=== PATIENT | female | born 1985 | race Caucasian/White ===

== ENCOUNTER 2017-06-11 16:23 | Emergency (ER) | payer MEDICAID ==
[2017-06-11] MEDS ORDERED: Lidocaine 1% 20 ML MDV INJECT ONE (17:50)
--- NOTE | 2017-06-11 17:52 | EDM.PDOC ---
ED HPI GENERAL MEDICAL PROBLEM - General Chief Complaint: Laceration Stated Complaint: PT CUT MIDDLE FINGER ON LT HAND Time Seen by Provider: 06/11/17 17:51 Source of Information: Reports: Patient - History of Present Illness INITIAL COMMENTS - FREE TEXT/NARRATIVE: HISTORY AND PHYSICAL: History of present illness: []Patient was cutting glue from a dresser drawer with a razor blade she is sustained a 2 cm laceration lateral aspect of left third digit wound is bled well no fever nausea vomiting chills sweats Review of systems: As per history of present illness and below otherwise all systems reviewed and negative. Past medical history: As per history of present illness and as reviewed below otherwise noncontributory. Surgical history: As per history of present illness and as reviewed below otherwise noncontributory. Social history: No reported history of drug or alcohol abuse. Family history: As per history of present illness and as reviewed below otherwise noncontributory. Physical exam: HEENT: Atraumatic, normocephalic, pupils reactive, negative for conjunctival pallor or scleral icterus, mucous membranes moist, throat clear, neck supple, nontender, trachea midline. Lungs: Clear to auscultation, breath sounds equal bilaterally, chest nontender. Heart: S1S2, regular, negative for clicks, rubs, or JVD. Abdomen: Soft, nondistended, nontender. Negative for masses or hepatosplenomegaly. Negative for costovertebral tenderness. Pelvis: Stable nontender. Genitourinary: Deferred. Rectal: Deferred. Extremities: Atraumatic, negative for cords or calf pain. Neurovascular unremarkable. Neuro: Awake, alert, oriented. Cranial nerves II through XII unremarkable. Cerebellum unremarkable. Motor and sensory unremarkable throughout. Exam nonfocal. Diagnostics: [] Therapeutics: []Tetanus status is updated today Lidocaine Wound cleansed and explored Tube dressing bacitracin Telfa #3 5-0 Prolene sutures interrupted Impression: []Laceration 1.5 cm Definitive disposition and diagnosis as appropriate pending reevaluation and review of above. Left Middle Hand Pain Score (Numeric/FACES): 9 - Related Data Allergies Allergy/AdvReac Type Severity Reaction Status Date / Time No Known Allergies Allergy Verified 06/11/17 17:08 Home Meds: Home Meds Ranitidine [Zantac] 2 tab PO BID 07/11/14 [History] Past Medical History - Past Health History Medical/Surgical History: Denies Medical/Surgical History HEENT History: Reports: None Respiratory History: Reports: Other (See Below) Other Respiratory History: REports 15yr history smoking, current use 1/2 - 1 pack per day [employer]OM[employer] History: Reports: Musculoskeletal History: Reports: Muscular Dystrophy Other Musculoskeletal History: Pain to feet and hands at times related to Muscular Dystrophy Psychiatric History: Reports: Anxiety, Depression - Past Surgical History Other Cardiovascular Surgeries/Procedures: mytonic disturphy Other Respiratory Surgeries/Procedures: aspirated while have surgery GI Surgical History: Reports: Cholecystectomy, EGD Female Surgical History: Reports: Tubal Ligation Social & Family History - Family History Family Medical History: Noncontributory - Tobacco Use Smoking Status *Q: Current Every Day Smoker Years of Tobacco use: 15 Packs/Tins Daily: 0.5 - Caffeine Use Caffeine Use: Reports: None - Alcohol Use Days Per Week of Alcohol Use: 0 Number of Drinks Per Day: 2 Total Drinks Per Week: 0 - Recreational Drug Use Recreational Drug Use: No Drug Use in Last 12 Months: No Recreational Drug Type: Reports: Marijuana/Hashish Recreational Drug Use Frequency: Weekly ED ROS GENERAL - Review of Systems Review Of Systems: ROS reveals no pertinent complaints other than HPI. ED EXAM, SKIN/RASH Exam: See Below Course - Vital Signs Last Recorded V/S: Last Vital Signs Temp 97.6 F 06/11/17 17:06 Pulse 90 06/11/17 17:06 Resp 18 06/11/17 17:06 BP 115/64 06/11/17 17:06 Pulse Ox 98 06/11/17 17:06 - Orders/Labs/Meds Meds: Medications Discontinued Medications Generic Name Dose Route Start Last Admin Trade Name Kar PRN Reason Stop Dose Admin Lidocaine HCl 20 ml 06/11/17 17:50 Xylocaine 1% INJECT 06/11/17 17:51 ONETIME ONE Departure - Departure Time of Disposition: 18:26 Disposition: Home, Self-Care 01 Condition: Good Clinical Impression: Laceration - Discharge Information Referrals: PCP,None [Primary Care Provider] - Forms: ED Department Discharge Additional Instructions: Standard wound care instruction Keep wound clean and dry for 48 hours Bacitracin Telfa tube dressing Tetanus status is updated today Change dressing if it bleeds through or becomes soiled Sutures out in 10 days Return to emergency room or primary care for suture removal The following information is given to patients seen in the emergency department who are being discharged to home. This information is to outline your options for follow-up care. We provide all patients seen in our emergency department with a follow-up referral. The need for follow-up, as well as the timing and circumstances, are variable depending upon the specifics of your emergency department visit. If you don't have a primary care physician on staff, we will provide you with a referral. We always advise you to contact your personal physician following an emergency department visit to inform them of the circumstance of the visit and for follow-up with them and/or the need for any referrals to a consulting specialist. The emergency department will also refer you to a specialist when appropriate. This referral assures that you have the opportunity for follow-up care with a specialist. All of these measure are taken in an effort to provide you with optimal care, which includes your follow-up. Under all circumstances we always encourage you to contact your private physician who remains a resource for coordinating your care. When calling for follow-up care, please make the office aware that this follow-up is from your recent emergency room visit. If for any reason you are refused follow-up, please contact the [facility] emergency department at and asked to speak to the emergency department charge nurse.
[2017-06-11] MEDS ORDERED: Bacitracin Oint 1 GM U/D Packet TOP ONE (18:54)
[2017-06-11] MEDS ORDERED: Diphtheria,Pertussis(Acell),Tetanus Vaccine 0.5 ML Syringe IM ONE (18:54)
[2017-06-11 19:20] VITALS: BP 105/55
== END 2017-06-11 19:18 | disposition home or self-care (01) ==
LOC: MW.ED 16:23
DX: S61.213A Laceration without foreign body of left middle finger without damage to nail, initial encounter (principal); F17.210 Nicotine dependence, cigarettes, uncomplicated; Z23 Encounter for immunization; W45.8XXA Other foreign body or object entering through skin, initial encounter
CPT/HCPCS: 12001; 90471; 90715; 99282; 99282-25

== ENCOUNTER 2017-10-27 18:24 | Emergency (ER) | payer MEDICAID ==
--- NOTE | 2017-10-27 19:49 | EDM.PDOC ---
ED HPI GENERAL MEDICAL PROBLEM - General Chief Complaint: ENT Problem Stated Complaint: TOOTH INFECTION/PAIN RT SIDE OF FACE Time Seen by Provider: 10/27/17 19:30 Source of Information: Reports: Patient History Limitations: Reports: No Limitations - History of Present Illness INITIAL COMMENTS - FREE TEXT/NARRATIVE: HISTORY AND PHYSICAL: History of present illness: Patient is a 32-year-old female who presents to the emergency room today with complaints of right temporalis pain and feeling generally unwell. She thought initially that she was having dental pain and had gone to the dentist earlier today. They had done a x-ray and dental screening and told her "nothing was wrong". She has tried [id number] products and still has pain which she is localizing to her right uatsdin. She states she feels generally unwell and is requesting IV fluids. She denies any fever, chills, chest pain or shortness of breath. She denies any abdominal pain, nausea, vomiting or diarrhea or constipation. Denies any alcohol or drug abuse. Patient does have a history of muscular dystrophy Review of systems: As per history of present illness and below otherwise all systems reviewed and negative. Past medical history: As per history of present illness and as reviewed below otherwise noncontributory. Surgical history: As per history of present illness and as reviewed below otherwise noncontributory. Social history: No reported history of drug or alcohol abuse. Family history: As per history of present illness and as reviewed below otherwise noncontributory. Physical exam: General: Well-developed and well-nourished 32-year-old female. Alert and oriented. Nontoxic appearing and in no acute distress. HEENT: Atraumatic, normocephalic, pupils equal and reactive bilaterally, negative for conjunctival pallor or scleral icterus, mucous membranes moist, throat clear, neck supple, nontender, trachea midline. Mild/Moderate tenderness to the right temporalis area. No mastoid tenderness with palpation. No drooling or trismus noted. No meningeal signs. Alopecia noted (she states this is believed to be related to her muscular dystrophy) Lungs: Clear to auscultation, breath sounds equal bilaterally, chest nontender. Heart: S1S2, regular rate and rhythm without overt murmur Abdomen: Soft, nondistended, nontender. Negative for masses or hepatosplenomegaly. Negative for costovertebral tenderness. Pelvis: Stable nontender. Genitourinary: Deferred. Rectal: Deferred. Skin: Intact, warm, dry. No lesions or rashes noted. Extremities: Atraumatic, negative for cords or calf pain. Neurovascular unremarkable. Neuro: Awake, alert, oriented. Cranial nerves II through XII unremarkable. Cerebellum unremarkable. Motor and sensory unremarkable throughout. Exam nonfocal. Notes: Will obtain some routine lab work with a CBC, CMP, ESR and CRP to assess for temporal arteritis. CBC, CMP, ESR and CRP are normal. Decreases my suspicion for TA. Shared this information with the patient. She is currently in the room crying stating that the pain is severe. I will do a head CT at this time and give her some additional pain medication. Head CT is normal. Patient is currently pain-free. Temporal pain vs Tension headache.I did encourage her to follow up with her primary care provider and/or her neurologist. She is requesting pain medication for home use. We did discuss rebound headaches. Will give her 6 tablets of tramadol, no refill. She voices understanding and is agreeable to follow-up with her PCP. Diagnostics: CBC, CMP, ESR, CRP, head CT Therapeutics: IV fluids, Toradol, morphine, Zofran Impression: Temporal Pain, right Plan: 1. Rest for the remainder of the day. No driving his you have had a narcotic 2. Tylenol and/or ibuprofen as needed for pain management. You may use tramadol for nighttime use. Has drowsiness a do not take it will driving her needing to be functioning outside of the house. 3. Follow-up with your primary caregiver Missy neurologlucy for further evaluation/management. Return to the ER as needed and as discussed. Definitive disposition and diagnosis as appropriate pending reevaluation and review of above. 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: Reports: G[employer] ENG[employer]ER History: Reports: Musculoskeletal History: Reports: Muscular Dystrophy Other Musculoskeletal History: Pain to feet and hands at times related to Muscular Dystrophy Other Neuro History: myotonic muscular dystrophy Psychiatric History: Reports: Anxiety, Depression - Infectious Disease History Infectious Disease History: Reports: Chicken Pox - Past Surgical History Other Cardiovascular Surgeries/Procedures: mytonic disturphy Other Respiratory Surgeries/Procedures: aspirated while have surgery GI Surgical History: Reports: Cholecystectomy, EGD Female Surgical History: Reports: Tubal Ligation Social & Family History - Family History Family Medical History: Noncontributory - Tobacco Use Smoking Status *Q: Current Every Day Smoker Years of Tobacco use: 15 Packs/Tins Daily: 0.5 - Caffeine Use Caffeine Use: Reports: Coffee, Energy Drinks, Soda, Tea - Alcohol Use Days Per Week of Alcohol Use: 0 Number of Drinks Per Day: 2 Total Drinks Per Week: 0 - Recreational Drug Use Recreational Drug Use: Yes Drug Use in Last 12 Months: Yes Recreational Drug Type: Reports: Marijuana/Hashish, Methamphetamine Recreational Drug Use Frequency: Not Used In Over 6 Months ED ROS ENT - Review of Systems Review Of Systems: ROS reveals no pertinent complaints other than HPI. ED EXAM, ENT - Physical Exam Exam: See Below (See dictation) Course - Vital Signs Last Recorded V/S: Last Vital Signs Temp 97.8 F 10/27/17 19:13 Pulse 79 10/27/17 21:10 Resp 14 10/27/17 21:10 BP 105/55 L 10/27/17 21:10 Pulse Ox 98 10/27/17 21:10 - Orders/Labs/Meds Orders: Active Orders 24 hr Category Date Time Status Head wo Cont [CT] Stat Exams 10/27/17 20:46 Taken Labs: Laboratory Tests 10/27/17 10/27/17 10/27/17 Range/Units 19:51 19:51 19:51 WBC 9.21 (4.0-11.0) K/uL RBC 4.88 (4.30-5.90) M/uL Hgb 14.6 (12.0-16.0) g/dL Hct 44.4 (36.0-46.0) % MCV 91.0 (80.0-98.0) fL MCH 29.9 (27.0-32.0) pg MCHC 32.9 (31.0-37.0) g/dL RDW Std Deviation 44.0 (28.0-62.0) fl RDW Coeff of Anita 13 (11.0-15.0) % Plt Count 222 (150-400) K/uL MPV 10.20 (7.40-12.00) fL Neut % (Auto) 59.6 (48.0-80.0) % Lymph % (Auto) 29.9 (16.0-40.0) % [place] % (Auto) 7.2 (0.0-15.0) % Eos % (Auto) 2.8 (0.0-7.0) % Baso % (Auto) 0.5 (0.0-1.5) % Neut # (Auto) 5.5 (1.4-5.7) K/uL Lymph # (Auto) 2.8 H (0.6-2.4) K/uL [place] # (Auto) 0.7 (0.0-0.8) K/uL Eos # (Auto) 0.3 (0.0-0.7) K/uL Baso # (Auto) 0.1 (0.0-0.1) K/uL Nucleated RBC % 0.0 /100WBC Nucleated RBCs # 0 K/uL ESR 6 (0-19) mm/hr Sodium 142 (136-145) mmol/L Potassium 4.3 (3.5-5.1) mmol/L Chloride 109 H (98-107) mmol/L Carbon Dioxide 22.6 (21.0-32.0) mmol/L BUN 13 (7.0-18.0) mg/dL Creatinine 0.9 (0.6-1.0) mg/dL Est Cr Clr Drug Dosing 92.91 mL/min Estimated GFR (MDRD) > 60.0 ml/min Glucose 137 H (74-106) mg/dL Calcium 8.7 (8.5-10.1) mg/dL Total Bilirubin 0.2 (0.2-1.0) mg/dL AST 130 H (15-37) IU/L ALT 121 H (14-63) IU/L Alkaline Phosphatase 84 (46-116) U/L C-Reactive Protein <0.20 (0.00-0.90) mg/dL Total Protein 6.9 (6.4-8.2) g/dL Albumin 3.2 L (3.4-5.0) g/dL Globulin 3.7 H (2.0-3.5) g/dL Albumin/Globulin Ratio 0.9 L (1.3-2.8) Meds: Medications Discontinued Medications Generic Name Dose Route Start Last Admin Trade Name Kar PRN Reason Stop Dose Admin Sodium Chloride 500 mls @ 999 mls/hr 10/27/17 19:42 10/27/17 20:23 Normal Saline IV 10/27/17 20:12 999 mls/hr STAT ONE Administration Ketorolac Tromethamine 30 mg 10/27/17 19:42 10/27/17 20:23 Toradol IVPUSH 10/27/17 19:43 30 mg ONETIME ONE Administration Morphine Sulfate 4 mg 10/27/17 20:46 10/27/17 20:58 Morphine IVPUSH 10/27/17 20:47 4 mg ONETIME ONE Administration Ondansetron HCl 4 mg 10/27/17 20:49 10/27/17 20:58 Zofran IVPUSH 10/27/17 20:50 4 mg ONETIME ONE Administration Departure - Departure Time of Disposition: 21:40 Disposition: Home, Self-Care 01 Clinical Impression: Temporal pain - Discharge Information Instructions: Tension Headache, Adult Referrals: PCP,None [Primary Care Provider] - Forms: ED Department Discharge Additional Instructions: The following information is given to patients seen in the emergency department who are being discharged to home. This information is to outline your options for follow-up care. We provide all patients seen in our emergency department with a follow-up referral. The need for follow-up, as well as the timing and circumstances, are variable depending upon the specifics of your emergency department visit. If you don't have a primary care physician on staff, we will provide you with a referral. We always advise you to contact your personal physician following an emergency department visit to inform them of the circumstance of the visit and for follow-up with them and/or the need for any referrals to a consulting specialist. The emergency department will also refer you to a specialist when appropriate. This referral assures that you have the opportunity for follow-up care with a specialist. All of these measure are taken in an effort to provide you with optimal care, which includes your follow-up. Under all circumstances we always encourage you to contact your private physician who remains a resource for coordinating your care. When calling for follow-up care, please make the office aware that this follow-up is from your recent emergency room visit. If for any reason you are refused follow-up, please contact the [facility] Emergency Department at and asked to speak to the emergency department charge nurse. [facility] Primary Care [address] [place] [id number] [facility] Specialty Care - Neurology Professional Building [address] [place] [address], [address] [place] [address] 1. Rest for the remainder of the day. No driving his you have had a narcotic 2. Tylenol and/or ibuprofen as needed for pain management. You may use tramadol for nighttime use. Has drowsiness a do not take it will driving her needing to be functioning outside of the house. 3. Follow-up with your primary caregiver Missy neurologist for further evaluation/management. Return to the ER as needed and as discussed. - My Orders Last 24 Hours: My Active Orders 10/27/17 20:46 Head wo Cont [CT] Stat - Assessment/Plan Last 24 Hours: My Active Orders 10/27/17 20:46 Head wo Cont [CT] Stat
[2017-10-27] MEDS: Sodium Chloride 0.9% 500 ML IV ONE (20:23)
[2017-10-27] MEDS: Ketorolac 30 MG/ML SDV IVPUSH ONE (20:23)
[2017-10-27 20:24] LABS: CHLORIDE,CL 109 mmol/L (98-107); SODIUM,NA 142 mmol/L (136-145)
[2017-10-27] MEDS: Morphine 4 MG/ML Syringe IVPUSH ONE (20:58)
[2017-10-27] MEDS: Ondansetron 4 MG/2 ML SDV IVPUSH ONE (20:58)
[2017-10-27 21:29] VITALS: BP 105/55
--- NOTE | 2017-10-27 21:56 | EDM.PDOC ---
ED HPI GENERAL MEDICAL PROBLEM - General Chief Complaint: ENT Problem Stated Complaint: TOOTH INFECTION/PAIN RT SIDE OF FACE Time Seen by Provider: 10/27/17 19:30 Source of Information: Reports: Patient History Limitations: Reports: No Limitations - History of Present Illness INITIAL COMMENTS - FREE TEXT/NARRATIVE: HISTORY AND PHYSICAL: History of present illness: Patient is a 32-year-old female who presents to the emergency room today with complaints of right temporalis pain and feeling generally unwell. She thought initially that she was having dental pain and had gone to the dentist earlier today. They had done a x-ray and dental screening and told her "nothing was wrong". She has tried [id number] products and still has pain which she is localizing to her right yarsani. She states she feels generally unwell and is requesting IV fluids. She denies any fever, chills, chest pain or shortness of breath. She denies any abdominal pain, nausea, vomiting or diarrhea or constipation. Denies any alcohol or drug abuse. Patient does have a history of muscular dystrophy Review of systems: As per history of present illness and below otherwise all systems reviewed and negative. Past medical history: As per history of present illness and as reviewed below otherwise noncontributory. Surgical history: As per history of present illness and as reviewed below otherwise noncontributory. Social history: No reported history of drug or alcohol abuse. Family history: As per history of present illness and as reviewed below otherwise noncontributory. Physical exam: General: Well-developed and well-nourished 32-year-old female. Alert and oriented. Nontoxic appearing and in no acute distress. HEENT: Atraumatic, normocephalic, pupils equal and reactive bilaterally, negative for conjunctival pallor or scleral icterus, mucous membranes moist, throat clear, neck supple, nontender, trachea midline. Mild/Moderate tenderness to the right temporalis area. No mastoid tenderness with palpation. No drooling or trismus noted. No meningeal signs. Alopecia noted (she states this is believed to be related to her muscular dystrophy) Lungs: Clear to auscultation, breath sounds equal bilaterally, chest nontender. Heart: S1S2, regular rate and rhythm without overt murmur Abdomen: Soft, nondistended, nontender. Negative for masses or hepatosplenomegaly. Negative for costovertebral tenderness. Pelvis: Stable nontender. Genitourinary: Deferred. Rectal: Deferred. Skin: Intact, warm, dry. No lesions or rashes noted. Extremities: Atraumatic, negative for cords or calf pain. Neurovascular unremarkable. Neuro: Awake, alert, oriented. Cranial nerves II through XII unremarkable. Cerebellum unremarkable. Motor and sensory unremarkable throughout. Exam nonfocal. Notes: Will obtain some routine lab work with a CBC, CMP, ESR and CRP to assess for temporal arteritis. CBC, CMP, ESR and CRP are normal. Decreases my suspicion for TA. Shared this information with the patient. She is currently in the room crying stating that the pain is severe. I will do a head CT at this time and give her some additional pain medication. Head CT is normal. Patient is currently pain-free. Temporal pain vs Tension headache.I did encourage her to follow up with her primary care provider and/or her neurologist. She is requesting pain medication for home use. We did discuss rebound headaches. Will give her 6 tablets of tramadol, no refill. She voices understanding and is agreeable to follow-up with her PCP. We did discuss her elevated liver enzymes. She denies any alcohol use. I encouraged her to follow up with her PCP within the next week or two. She voices understanding and denies any further questions. Diagnostics: CBC, CMP, ESR, CRP, head CT Therapeutics: IV fluids, Toradol, morphine, Zofran Impression: Temporal Pain, right Elevated Liver Enzymes Plan: 1. Rest for the remainder of the day. No driving his you have had a narcotic 2. Tylenol and/or ibuprofen as needed for pain management. You may use tramadol for nighttime use. Has drowsiness a do not take it will driving her needing to be functioning outside of the house. 3. Follow-up with your primary caregiver Missy neurologist for further evaluation/management. Return to the ER as needed and as discussed. Definitive disposition and diagnosis as appropriate pending reevaluation and review of above. 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: Reports: GERD 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: Musculoskeletal History: Reports: Muscular Dystrophy Other Musculoskeletal History: Pain to feet and hands at times related to Muscular Dystrophy Other Neuro History: myotonic muscular dystrophy Psychiatric History: Reports: Anxiety, Depression - Infectious Disease History Infectious Disease History: Reports: Chicken Pox - Past Surgical History Other Cardiovascular Surgeries/Procedures: mytonic disturphy Other Respiratory Surgeries/Procedures: aspirated while have surgery GI Surgical History: Reports: Cholecystectomy, EGD Female Surgical History: Reports: Tubal Ligation Social & Family History - Family History Family Medical History: Noncontributory - Tobacco Use Smoking Status *Q: Current Every Day Smoker Years of Tobacco use: 15 Packs/Tins Daily: 0.5 - Caffeine Use Caffeine Use: Reports: Coffee, Energy Drinks, Soda, Tea - Alcohol Use Days Per Week of Alcohol Use: 0 Number of Drinks Per Day: 2 Total Drinks Per Week: 0 - Recreational Drug Use Recreational Drug Use: Yes Drug Use in Last 12 Months: Yes Recreational Drug Type: Reports: Marijuana/Hashish, Methamphetamine Recreational Drug Use Frequency: Not Used In Over 6 Months ED ROS GENERAL - Review of Systems Review Of Systems: ROS reveals no pertinent complaints other than HPI. ED EXAM, GENERAL - Physical Exam Exam: See Below Free Text/Narrative:: HISTORY AND PHYSICAL: History of present illness: Patient is a 32-year-old female who presents to the emergency room today with complaints of right temporalis pain and feeling generally unwell. She thought initially that she was having dental pain and had gone to the dentist earlier today. They had done a x-ray and dental screening and told her "nothing was wrong". She has tried [id number] products and still has pain which she is localizing to her right yarsani. She states she feels generally unwell and is requesting IV fluids. She denies any fever, chills, chest pain or shortness of breath. She denies any abdominal pain, nausea, vomiting or diarrhea or constipation. Denies any alcohol or drug abuse. Patient does have a history of muscular dystrophy Review of systems: As per history of present illness and below otherwise all systems reviewed and negative. Past medical history: As per history of present illness and as reviewed below otherwise noncontributory. Surgical history: As per history of present illness and as reviewed below otherwise noncontributory. Social history: No reported history of drug or alcohol abuse. Family history: As per history of present illness and as reviewed below otherwise noncontributory. Physical exam: General: Well-developed and well-nourished 32-year-old female. Alert and oriented. Nontoxic appearing and in no acute distress. HEENT: Atraumatic, normocephalic, pupils equal and reactive bilaterally, negative for conjunctival pallor or scleral icterus, mucous membranes moist, throat clear, neck supple, nontender, trachea midline. Mild/Moderate tenderness to the right temporalis area. No mastoid tenderness with palpation. No drooling or trismus noted. No meningeal signs. Alopecia noted (she states this is believed to be related to her muscular dystrophy) Lungs: Clear to auscultation, breath sounds equal bilaterally, chest nontender. Heart: S1S2, regular rate and rhythm without overt murmur Abdomen: Soft, nondistended, nontender. Negative for masses or hepatosplenomegaly. Negative for costovertebral tenderness. Pelvis: Stable nontender. Genitourinary: Deferred. Rectal: Deferred. Skin: Intact, warm, dry. No lesions or rashes noted. Extremities: Atraumatic, negative for cords or calf pain. Neurovascular unremarkable. Neuro: Awake, alert, oriented. Cranial nerves II through XII unremarkable. Cerebellum unremarkable. Motor and sensory unremarkable throughout. Exam nonfocal. Notes: Will obtain some routine lab work with a CBC, CMP, ESR and CRP to assess for temporal arteritis. CBC, CMP, ESR and CRP are normal. Decreases my suspicion for TA. Shared this information with the patient. She is currently in the room crying stating that the pain is severe. I will do a head CT at this time and give her some additional pain medication. Head CT is normal. Patient is currently pain-free. Temporal pain vs Tension headache.I did encourage her to follow up with her primary care provider and/or her neurologist. She is requesting pain medication for home use. We did discuss rebound headaches. Will give her 6 tablets of tramadol, no refill. She voices understanding and is agreeable to follow-up with her PCP. Diagnostics: CBC, CMP, ESR, CRP, head CT Therapeutics: IV fluids, Toradol, morphine, Zofran Impression: Temporal Pain, right Plan: 1. Rest for the remainder of the day. No driving his you have had a narcotic 2. Tylenol and/or ibuprofen as needed for pain management. You may use tramadol for nighttime use. Has drowsiness a do not take it will driving her needing to be functioning outside of the house. 3. Follow-up with your primary caregiver Missy neurologist for further evaluation/management. Return to the ER as needed and as discussed. Definitive disposition and diagnosis as appropriate pending reevaluation and review of above. Course - Vital Signs Last Recorded V/S: Last Vital Signs Temp 97.8 F 10/27/17 19:13 Pulse 79 10/27/17 21:10 Resp 14 10/27/17 21:10 BP 105/55 L 10/27/17 21:10 Pulse Ox 98 10/27/17 21:10 - Orders/Labs/Meds Orders: Active Orders 24 hr Category Date Time Status Head wo Cont [CT] Stat Exams 10/27/17 20:46 Taken Labs: Laboratory Tests 10/27/17 10/27/17 10/27/17 Range/Units 19:51 19:51 19:51 WBC 9.21 (4.0-11.0) K/uL RBC 4.88 (4.30-5.90) M/uL Hgb 14.6 (12.0-16.0) g/dL Hct 44.4 (36.0-46.0) % MCV 91.0 (80.0-98.0) fL MCH 29.9 (27.0-32.0) pg MCHC 32.9 (31.0-37.0) g/dL RDW Std Deviation 44.0 (28.0-62.0) fl RDW Coeff of Anita 13 (11.0-15.0) % Plt Count 222 (150-400) K/uL MPV 10.20 (7.40-12.00) fL Neut % (Auto) 59.6 (48.0-80.0) % Lymph % (Auto) 29.9 (16.0-40.0) % [place] % (Auto) 7.2 (0.0-15.0) % Eos % (Auto) 2.8 (0.0-7.0) % Baso % (Auto) 0.5 (0.0-1.5) % Neut # (Auto) 5.5 (1.4-5.7) K/uL Lymph # (Auto) 2.8 H (0.6-2.4) K/uL [place] # (Auto) 0.7 (0.0-0.8) K/uL Eos # (Auto) 0.3 (0.0-0.7) K/uL Baso # (Auto) 0.1 (0.0-0.1) K/uL Nucleated RBC % 0.0 /100WBC Nucleated RBCs # 0 K/uL ESR 6 (0-19) mm/hr Sodium 142 (136-145) mmol/L Potassium 4.3 (3.5-5.1) mmol/L Chloride 109 H (98-107) mmol/L Carbon Dioxide 22.6 (21.0-32.0) mmol/L BUN 13 (7.0-18.0) mg/dL Creatinine 0.9 (0.6-1.0) mg/dL Est Cr Clr Drug Dosing 92.91 mL/min Estimated GFR (MDRD) > 60.0 ml/min Glucose 137 H (74-106) mg/dL Calcium 8.7 (8.5-10.1) mg/dL Total Bilirubin 0.2 (0.2-1.0) mg/dL AST 130 H (15-37) IU/L ALT 121 H (14-63) IU/L Alkaline Phosphatase 84 (46-116) U/L C-Reactive Protein <0.20 (0.00-0.90) mg/dL Total Protein 6.9 (6.4-8.2) g/dL Albumin 3.2 L (3.4-5.0) g/dL Globulin 3.7 H (2.0-3.5) g/dL Albumin/Globulin Ratio 0.9 L (1.3-2.8) Meds: Medications Discontinued Medications Generic Name Dose Route Start Last Admin Trade Name Freq PRN Reason Stop Dose Admin Sodium Chloride 500 mls @ 999 mls/hr 10/27/17 19:42 10/27/17 20:23 Normal Saline IV 10/27/17 20:12 999 mls/hr STAT ONE Administration Ketorolac Tromethamine 30 mg 10/27/17 19:42 10/27/17 20:23 Toradol IVPUSH 10/27/17 19:43 30 mg ONETIME ONE Administration Morphine Sulfate 4 mg 10/27/17 20:46 10/27/17 20:58 Morphine IVPUSH 10/27/17 20:47 4 mg ONETIME ONE Administration Ondansetron HCl 4 mg 10/27/17 20:49 10/27/17 20:58 Zofran IVPUSH 10/27/17 20:50 4 mg ONETIME ONE Administration Departure - Departure Time of Disposition: 21:56 Disposition: Home, Self-Care 01 Clinical Impression: Temporal pain, Elevated liver enzymes - Discharge Information Instructions: Tension Headache, Adult Referrals: PCP,None [Primary Care Provider] - Forms: ED Department Discharge Additional Instructions: The following information is given to patients seen in the emergency department who are being discharged to home. This information is to outline your options for follow-up care. We provide all patients seen in our emergency department with a follow-up referral. The need for follow-up, as well as the timing and circumstances, are variable depending upon the specifics of your emergency department visit. If you don't have a primary care physician on staff, we will provide you with a referral. We always advise you to contact your personal physician following an emergency department visit to inform them of the circumstance of the visit and for follow-up with them and/or the need for any referrals to a consulting specialist. The emergency department will also refer you to a specialist when appropriate. This referral assures that you have the opportunity for follow-up care with a specialist. All of these measure are taken in an effort to provide you with optimal care, which includes your follow-up. Under all circumstances we always encourage you to contact your private physician who remains a resource for coordinating your care. When calling for follow-up care, please make the office aware that this follow-up is from your recent emergency room visit. If for any reason you are refused follow-up, please contact the [facility] Emergency Department at and asked to speak to the emergency department charge nurse. [facility] [address] [place] [id number] [facility] Specialty Care - Neurology Professional Building [address] [place] [address], [address] [place] [address] 1. Rest for the remainder of the day. No driving his you have had a narcotic 2. Tylenol and/or ibuprofen as needed for pain management. You may use tramadol for nighttime use. Has drowsiness a do not take it will driving her needing to be functioning outside of the house. 3. Follow-up with your primary caregiver Missy neurologist for further evaluation/management. Return to the ER as needed and as discussed. - My Orders Last 24 Hours: My Active Orders 10/27/17 20:46 Head wo Cont [CT] Stat - Assessment/Plan Last 24 Hours: My Active Orders 10/27/17 20:46 Head wo Cont [CT] Stat
--- NOTE | 2017-10-28 10:07 | CT ---
EXAM DATE: 10/27/17 PATIENT'S AGE: 32 Patient: DEEP HARMON Facility: [place], [place] Site . Site : 1985 Study: CT Head [id number] 9:12:54 PM Ordering Physician: Doctor Fitzgerald Final Report: CT HEAD DATE: 10/27/2017 CLINICAL HISTORY: Patient with right temporal pain. TECHNIQUE: Standard CT scanning of the head was performed. COMPARISON: None. FINDINGS: There is no intracranial hemorrhage. The donovan matter-white matter differentiation is intact. The size of the ventricular system is normal for age. There is no mass effect or midline shift. The calvarium is unremarkable. The orbits are unremarkable. The paranasal sinuses are unremarkable. The mastoid air cells are unremarkable. The soft tissues are unremarkable. IMPRESSION: Normal head CT. Please note that all CT scans at this facility use dose modulation, iterative reconstruction, and/or weight-based dosing when appropriate to reduce radiation dose to as low as reasonably achievable. Dictated by: Alejo Clement MD @ 10/27/2017 21:18:27 (Electronic Signature) Report Signed by Proxy. [facility]ITAL[facility]
== END 2017-10-27 21:40 | disposition home or self-care (01) ==
LOC: MW.ED 18:24
DX: R51 Headache (principal); R94.5 Abnormal results of liver function studies; F17.210 Nicotine dependence, cigarettes, uncomplicated
CPT/HCPCS: 36415; 70450; 80053; 85025; 85652; 86140; 96374; 96375; 99284; J1885; J2270; J2405; J7040; 99283

== ENCOUNTER 2018-04-05 07:33 | Emergency (ER) | payer MEDICAID ==
[2018-04-05 07:51] VITALS: BP 136/80
--- NOTE | 2018-04-05 08:06 | EDM.PDOC ---
ED HPI GENERAL MEDICAL PROBLEM - General Chief Complaint: Skin Complaint Stated Complaint: SPIDER BITES Time Seen by Provider: 04/05/18 08:04 Source of Information: Reports: Patient - History of Present Illness INITIAL COMMENTS - FREE TEXT/NARRATIVE: HISTORY AND PHYSICAL: History of present illness: []Marisela presents with a complaint of spider bite She does have 2 areas of small cellulitis silver dollar-sized lesions on her right forearm as well as her right hip their red raised and tender mild warmth no induration or exudates for culture No fever nausea vomiting chills sweats Review of systems: As per history of present illness and below otherwise all systems reviewed and negative. Past medical history: As per history of present illness and as reviewed below otherwise noncontributory. Surgical history: As per history of present illness and as reviewed below otherwise noncontributory. Social history: No reported history of drug or alcohol abuse. Family history: As per history of present illness and as reviewed below otherwise noncontributory. Physical exam: HEENT: Atraumatic, normocephalic, pupils reactive, negative for conjunctival pallor or scleral icterus, mucous membranes moist, throat clear, neck supple, nontender, trachea midline. Lungs: Clear to auscultation, breath sounds equal bilaterally, chest nontender. Heart: S1S2, regular, negative for clicks, rubs, or JVD. Abdomen: Soft, nondistended, nontender. Negative for masses or hepatosplenomegaly. Negative for costovertebral tenderness. Pelvis: Stable nontender. Genitourinary: Deferred. Rectal: Deferred. Extremities: Atraumatic, negative for cords or calf pain. Neurovascular unremarkable. Neuro: Awake, alert, oriented. Cranial nerves II through XII unremarkable. Cerebellum unremarkable. Motor and sensory unremarkable throughout. Exam nonfocal. Skin as per history of present illness otherwise unremarkable Diagnostics: [] clinical Therapeutics: [] Bactrim single strength #20 no refill Bactroban Impression: [] cellulitis Definitive disposition and diagnosis as appropriate pending reevaluation and review of above. 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: Musculoskeletal History: Reports: Muscular Dystrophy Other Musculoskeletal History: Pain to feet and hands at times related to Muscular Dystrophy Other Neuro History: myotonic muscular dystrophy Psychiatric History: Reports: Anxiety, Depression - Infectious Disease History Infectious Disease History: Reports: Chicken Pox - Past Surgical History Other Cardiovascular Surgeries/Procedures: mytonic disturphy Other Respiratory Surgeries/Procedures: aspirated while have surgery GI Surgical History: Reports: Cholecystectomy, EGD Female Surgical History: Reports: Tubal Ligation Social & Family History - Family History Family Medical History: Noncontributory - Tobacco Use Smoking Status *Q: Current Every Day Smoker Years of Tobacco use: 15 Packs/Tins Daily: 0.5 Used Tobacco, but Quit: No Second Hand Smoke Exposure: Yes - Caffeine Use Caffeine Use: Reports: Coffee, Energy Drinks, Soda, Tea - Recreational Drug Use Recreational Drug Use: Yes Recreational Drug Type: Reports: Marijuana/Hashish Recreational Drug Use Frequency: Daily ED ROS GENERAL - Review of Systems Review Of Systems: See Below ED EXAM, SKIN/RASH Exam: See Below Course - Vital Signs Last Recorded V/S: Last Vital Signs Temp 98.6 F 04/05/18 07:43 Pulse 82 04/05/18 07:43 Resp 18 04/05/18 07:43 BP 136/80 04/05/18 07:43 Pulse Ox 97 04/05/18 07:43 Departure - Departure Time of Disposition: 08:05 Disposition: Home, Self-Care 01 Condition: Good Clinical Impression: Cellulitis - Discharge Information Referrals: PCP,None [Primary Care Provider] - Additional Instructions: The following information is given to patients seen in the emergency department who are being discharged to home. This information is to outline your options for follow-up care. We provide all patients seen in our emergency department with a follow-up referral. The need for follow-up, as well as the timing and circumstances, are variable depending upon the specifics of your emergency department visit. If you don't have a primary care physician on staff, we will provide you with a referral. We always advise you to contact your personal physician following an emergency department visit to inform them of the circumstance of the visit and for follow-up with them and/or the need for any referrals to a consulting specialist. The emergency department will also refer you to a specialist when appropriate. This referral assures that you have the opportunity for follow-up care with a specialist. All of these measure are taken in an effort to provide you with optimal care, which includes your follow-up. Under all circumstances we always encourage you to contact your private physician who remains a resource for coordinating your care. When calling for follow-up care, please make the office aware that this follow-up is from your recent emergency room visit. If for any reason you are refused follow-up, please contact the [facility] emergency department at and asked to speak to the emergency department charge nurse.
== END 2018-04-05 08:10 | disposition home or self-care (01) ==
LOC: MW.ED 07:33
DX: L03.113 Cellulitis of right upper limb (principal); L03.115 Cellulitis of right lower limb; F17.210 Nicotine dependence, cigarettes, uncomplicated
CPT/HCPCS: 99282

== ENCOUNTER 2020-01-22 00:39 | Emergency (ER) | payer MEDICAID ==
[2020-01-22] MEDS ORDERED: Ibuprofen 400 MG Tab PO ONE (01:14)
[2020-01-22] MEDS ORDERED: Acetaminophen 500 MG Tab PO ONE (01:14)
--- NOTE | 2020-01-22 01:19 | EDM.PDOC ---
ED HPI GENERAL MEDICAL PROBLEM - General Chief Complaint: Lower Extremity Injury/Pain Stated Complaint: LEFT FOOT SWOLLEN, TINGLING Time Seen by Provider: 01/22/20 00:41 Source of Information: Reports: Patient, Old Records History Limitations: Reports: No Limitations - History of Present Illness INITIAL COMMENTS - FREE TEXT/NARRATIVE: 34-year-old female the past medical history of muscular dystrophy, hyperlipidemia, biliary dyskinesia, gastroenteritis presenting with lower extremity pain and swelling. She reports that yesterday she accidentally scraped the lateral side of her left lower leg when she fell accidentally. This morning around 8:00 in the morning she noticed swelling extending from the left knee down to the left foot and complains of pain into the left foot. No prior history of a DVT. Denies any fever, chills, chest discomfort, shortness of breath, redness, or streaking. Bilateral Leg Pain Score (Numeric/FACES): 7 - Related Data Allergies Allergy/AdvReac Type Severity Reaction Status Date / Time adhesive Allergy "skin Verified 01/22/20 00:52 comes off" Home Meds: Home Meds Famotidine [Acid Commutator Inspector] 10 mg PO ASDIRECTED 01/22/20 [History] Gabapentin [Neurontin] 300 mg PO BID 01/22/20 [History] Past Medical History - Past Health History Medical/Surgical History: Denies Medical/Surgical History HEENT History: Reports: Impaired Vision Cardiovascular History: Reports: Heart Murmur, High Cholesterol Respiratory History: Reports: Asthma Other Respiratory History: "mild asthma", not on any prescribed inhalers Gastrointestinal History: Reports: GERD Genitourinary History: Reports: UTI, Recurrent SUPPORT WORKER History: Reports: Musculoskeletal History: Reports: Other (See Below) Other Musculoskeletal History: mytonic muscular dystrophy Neurological History: Reports: None Other Neuro History: myotonic muscular dystrophy Psychiatric History: Reports: Anxiety, Depression Endocrine/Metabolic History: Reports: Obesity/BMI 30+ Hematologic History: Reports: None Immunologic History: Reports: None Oncologic (Cancer) History: Reports: None Dermatologic History: Reports: None - Infectious Disease History Infectious Disease History: Reports: Chicken Pox - Past Surgical History Head Surgeries/Procedures: Reports: None HEENT Surgical History: Reports: Cataract Surgery Cardiovascular Surgical History: Reports: None Respiratory Surgical History: Reports: None GI Surgical History: Reports: Cholecystectomy, EGD, Other (See Below) Female Surgical History: Reports: Tubal Ligation Endocrine Surgical History: Reports: None Neurological Surgical History: Reports: None Musculoskeletal Surgical History: Reports: None Oncologic Surgical History: Reports: None Dermatological Surgical History: Reports: None Social & Family History - Family History Family Medical History: Noncontributory - Tobacco Use Smoking Status *Q: Current Every Day Smoker Years of Tobacco use: 17 Packs/Tins Daily: 0.5 - Caffeine Use Caffeine Use: Reports: Coffee, Energy Drinks, Soda, Tea - Recreational Drug Use Recreational Drug Use: Yes Drug Use in Last 12 Months: Yes Recreational Drug Type: Reports: Marijuana/Hashish, Methamphetamine Other Recreational Drug Type: meth not used in 2 weeks Recreational Drug Use Frequency: Monthly Review of Systems - Review of Systems Review Of Systems: See Below Constitutional: Denies: Chills, Fever Ears: Reports: No Symptoms Nose: Reports: No Symptoms Mouth/Throat: Reports: No Symptoms Respiratory: Denies: Shortness of Breath Cardiovascular: Reports: Edema. Denies: Chest Pain GI/Abdominal: Denies: Abdominal Pain, Nausea, Vomiting Genitourinary: Reports: No Symptoms Musculoskeletal: Reports: Leg Pain, Foot Pain Skin: Reports: Wound Neurological: Reports: No Symptoms Psychiatric: Reports: No Symptoms ED EXAM, GENERAL - Physical Exam Exam: See Below Free Text/Narrative:: Vital signs reviewed. Nursing notes reviewed. Constitutional: Awake, alert, non-distressed. Head: Normocephalic, atraumatic. Eyes: EOMI, conjunctiva normal, no discharge, no scleral icterus. Ears, Nose, Throat: External ears and nose normal, moist oral mucosa. Cardiovascular: 2+ left radial and DP pulse, capillary refill less than 2 seconds. 1+ edema from the left knee extending down into the left foot Pulmonary: normal work of breathing, no accessory muscle use. CTA BL Abdomen/GI: Morbidly obese, soft nontender, nondistended, no guarding or rigidity, no masses. Musculoskeletal: No deformities. Mild tenderness to palpation of the left ankle and dorsum of the left foot Integumentary: Appropriate color for ethnicity, warm, dry, no pallor or jaundice, no rash. Abrasions noted to the lateral aspect of the left lower leg Neurologic: Alert, answering questions appropriately, normal speech, no facial droop, moving all extremities well. Psychiatric: Appropriate mood and affect, normal thought process. Course - Vital Signs Text/Narrative:: Patient hemodynamically stable, afebrile, well-appearing, looks nontoxic. Differential diagnosis includes but is not limited to: DVT, cellulitis, occult trauma, fracture, dislocation, hepatic failure, renal failure, congestive heart failure, compartment syndrome, etc. DVT ultrasound study is negative, d-dimer is negative. No clinical evidence of cellulitis. X-rays of the left lower extremity are negative for bony injury. Creatinine is normal, albumin is normal which argues against hepatic or renal f ailure. CK is modestly elevated at 710 which does not classically meet the criteria for rhabdomyolysis. Urinalysis shows trace leukocyte esterase but no proteinuria. Patient was treated with acetaminophen and oxycodone with good relief of her pain. On examination, she complains of diminished sensation to the medial and lateral aspects of the left lower leg, the dorsum of the left foot, the medial and lateral sides the left foot. The only area of the lower extremity that she states has normal sensation is the plantar surface of the left foot. I did entertain the idea of compartment syndrome and involved the orthopedic surgery service by phone. 03:30 AM: I spoke with Dr. David Galindo with orthopedics. I did discuss potential concern for compartment syndrome despite a relatively minor mechanism of injury. I have voiced my concern about ongoing pain and subjective numbness with swelling distal to the left knee extending to the left foot. I also explained that we are unable to check compartment pressures because our Smiley compartment measuring device is missing some of the parts. After discussing the case, he is not particularly concerned about compartment syndrome. He voiced potential concern about a vascular injury. We are going to obtain a CT angiogram of the left lower extremity to look for a small-vessel vascular injury, although at this point I am reassured by the fact that the pulses in the left foot are normal and the legs are iso-thermic and appear to be warm and well- perfused. At this point the patient is complaining of numbness to the medial aspect the left lower leg and the entirety of the left foot. Anatomically this would not make much sense for compartment syndrome given that multiple nerves innervating the left foot would have to be involved, traversing multiple compartments. Additionally, the exterior compartments are soft - the only compartment I cannot readily examine is the deep posterior compartment. There is no pain with passive stretch of the left ankle or toes. There is no poikilothermia or paralysis noted and all extremity pulses in the left foot are currently palpable or dopplerable 4:50 AM: Patient returned from CT angiogram study of the left lower extremity, we are awaiting radiology read. I am able to easily Doppler the left DP and PT pulses. Lower extremities are iso-thermic. There is no pain with passive stretch of the left ankle or flexion or extension of the toes of the left foot. Compartments of the left leg remain soft. Upon further history, the patient is taking gabapentin for what I presume is lower extremity peripheral neuropathy and she is under the care of a neurologist. Her left lower extremity swelling started around 21 hours ago and the patient does not think it has markedly worsened over the past several hours. She shows no evidence of vascular compromise and I think my suspicion for compartment syndrome is quite low at this point given normal temperature, normal pulses, and no pain with passive stretch of the toes or the ankle on the left side. 6:04 AM: Preliminary exam by Dr. Neal Alamo ([facility] radiologist) shows no sign of vascular injury in the CTA, moderate superficial edema of the lower leg and the foot, no sign of deeper soft tissue edema or hematoma. Pain improved. Swelling actually looks like it is gone down quite a bit while she is here in the ED, which would also argue against compartment syndrome. Possible that she has a sprained ankle and some superficial soft tissue swelling. Plan to discharge home with outpatient primary care follow-up. Recommended elevation of the leg, [id number] Tylenol/Motrin as needed for pain. Strict emergency department return precautions were provided, patient indicated understanding. All questions were answered prior to departure. Discharged in good condition. Last Recorded V/S: Last Vital Signs Temp 35.4 C L 01/22/20 00:49 Pulse 95 01/22/20 05:23 Resp 16 01/22/20 05:23 BP 108/62 01/22/20 05:23 Pulse Ox 93 L 01/22/20 05:23 - Orders/Labs/Meds Labs: Laboratory Tests 01/22/20 01/22/20 01/22/20 Range/Units 01:38 01:38 01:38 WBC 9.36 (4.0-11.0) K/uL RBC 4.49 (4.30-5.90) M/uL Hgb 13.2 (12.0-16.0) g/dL Hct 41.6 (36.0-46.0) % MCV 92.7 (80.0-98.0) fL MCH 29.4 (27.0-32.0) pg MCHC 31.7 (31.0-37.0) g/dL RDW Std Deviation 46.3 (28.0-62.0) fl RDW Coeff of Anita 14 (11.0-15.0) % Plt Count 210 (150-400) K/uL MPV 10.00 (7.40-12.00) fL Neut % (Auto) 68.4 (48.0-80.0) % Lymph % (Auto) 22.3 (16.0-40.0) % [place] % (Auto) 6.9 (0.0-15.0) % Eos % (Auto) 2.0 (0.0-7.0) % Baso % (Auto) 0.4 (0.0-1.5) % Neut # (Auto) 6.4 H (1.4-5.7) K/uL Lymph # (Auto) 2.1 (0.6-2.4) K/uL [place] # (Auto) 0.7 (0.0-0.8) K/uL Eos # (Auto) 0.2 (0.0-0.7) K/uL Baso # (Auto) 0.0 (0.0-0.1) K/uL D-Dimer, Quantitative 0.33 (0.0-0.50) mg/L FEU Sodium 144 (136-145) mmol/L Potassium 3.6 (3.5-5.1) mmol/L Chloride 106 (98-107) mmol/L Carbon Dioxide 29.8 (21.0-32.0) mmol/L BUN 15 (7.0-18.0) mg/dL Creatinine 0.9 (0.6-1.0) mg/dL Est Cr Clr Drug Dosing 91.18 mL/min Estimated GFR (MDRD) > 60.0 ml/min Glucose 99 (74-106) mg/dL Calcium 9.1 (8.5-10.1) mg/dL Total Bilirubin 0.2 (0.2-1.0) mg/dL AST 50 H (15-37) IU/L ALT 62 (14-63) IU/L Alkaline Phosphatase 81 (46-116) U/L Creatine Kinase (26-308) U/L Total Protein 7.2 (6.4-8.2) g/dL Albumin 3.5 (3.4-5.0) g/dL Globulin 3.7 (2.6-4.0) g/dL Albumin/Globulin Ratio 0.9 (0.9-1.6) Urine Color Urine Appearance Urine pH (5.0-8.0) Ur Specific [place] (1.001-1.035) Urine Protein (NEGATIVE) mg/dL Urine Glucose (UA) (NEGATIVE) mg/dL Urine Ketones (NEGATIVE) mg/dL Urine Occult Blood (NEGATIVE) Urine Nitrite (NEGATIVE) Urine Bilirubin (NEGATIVE) Urine Urobilinogen (<2.0) EU/dL Ur Leukocyte Esterase (NEGATIVE) Urine RBC (0-2/HPF) Urine WBC (0-5/HPF) Ur Epithelial Cells (NONE-FEW) Urine Bacteria (NEGATIVE) Urine Mucus (NONE-MOD) 01/22/20 01/22/20 Range/Units 01:38 03:10 WBC (4.0-11.0) K/uL RBC (4.30-5.90) M/uL Hgb (12.0-16.0) g/dL Hct (36.0-46.0) % MCV (80.0-98.0) fL MCH (27.0-32.0) pg MCHC (31.0-37.0) g/dL RDW Std Deviation (28.0-62.0) fl RDW Coeff of Anita (11.0-15.0) % Plt Count (150-400) K/uL MPV (7.40-12.00) fL Neut % (Auto) (48.0-80.0) % Lymph % (Auto) (16.0-40.0) % [place] % (Auto) (0.0-15.0) % Eos % (Auto) (0.0-7.0) % Baso % (Auto) (0.0-1.5) % Neut # (Auto) (1.4-5.7) K/uL Lymph # (Auto) (0.6-2.4) K/uL [place] # (Auto) (0.0-0.8) K/uL Eos # (Auto) (0.0-0.7) K/uL Baso # (Auto) (0.0-0.1) K/uL D-Dimer, Quantitative (0.0-0.50) mg/L FEU Sodium (136-145) mmol/L Potassium (3.5-5.1) mmol/L Chloride (98-107) mmol/L Carbon Dioxide (21.0-32.0) mmol/L BUN (7.0-18.0) mg/dL Creatinine (0.6-1.0) mg/dL Est Cr Clr Drug Dosing mL/min Estimated GFR (MDRD) ml/min Glucose (74-106) mg/dL Calcium (8.5-10.1) mg/dL Total Bilirubin (0.2-1.0) mg/dL AST (15-37) IU/L ALT (14-63) IU/L Alkaline Phosphatase (46-116) U/L Creatine Kinase 710 H (26-308) U/L Total Protein (6.4-8.2) g/dL Albumin (3.4-5.0) g/dL Globulin (2.6-4.0) g/dL Albumin/Globulin Ratio (0.9-1.6) Urine Color YELLOW Urine Appearance SLT CLOUDY Urine pH 6.0 (5.0-8.0) Ur Specific [place] >= 1.030 (1.001-1.035) Urine Protein NEGATIVE (NEGATIVE) mg/dL Urine Glucose (UA) NEGATIVE (NEGATIVE) mg/dL Urine Ketones NEGATIVE (NEGATIVE) mg/dL Urine Occult Blood NEGATIVE (NEGATIVE) Urine Nitrite NEGATIVE (NEGATIVE) Urine Bilirubin NEGATIVE (NEGATIVE) Urine Urobilinogen 0.2 (<2.0) EU/dL Ur Leukocyte Esterase TRACE H (NEGATIVE) Urine RBC 0-2 (0-2/HPF) Urine WBC 3-5 (0-5/HPF) Ur Epithelial Cells MANY (NONE-FEW) Urine Bacteria FEW (NEGATIVE) Urine Mucus LIGHT (NONE-MOD) Meds: Medications Discontinued Medications Generic Name Dose Route Start Last Admin Trade Name Freq PRN Reason Stop Dose Admin Acetaminophen 1,000 mg 01/22/20 01:14 07/06/20 01:35 Tylenol Extra Strength PO 07/06/20 01:15 1,000 mg ONETIME ONE Administration Ibuprofen 400 mg 01/22/20 01:14 01/22/20 01:34 Motrin PO 01/22/20 01:15 Not Given ONETIME ONE Iopamidol 100 ml 01/22/20 04:20 01/22/20 04:20 Isovue-370 (76%) IVPUSH 01/22/20 04:21 100 ml ONETIME ONE Administration Oxycodone HCl 10 mg 01/22/20 02:45 01/22/20 03:09 Oxycodone PO 01/22/20 02:46 10 mg ONETIME ONE Administration Departure - Departure Time of Disposition: 04:58 Disposition: Home, Self-Care 01 Condition: Good Clinical Impression: Abrasion, left lower leg, initial encounter, Swelling of left lower extremity - Discharge Information *PRESCRIPTION DRUG MONITORING PROGRAM REVIEWED*: Not Applicable *COPY OF PRESCRIPTION DRUG MONITORING REPORT IN PATIENT AGUSTIN: Not Applicable Referrals: Candice Mehta PA [Primary Care Provider] - 3 Days (For reevaluation of left leg and foot swelling.) Forms: ED Department Discharge Additional Instructions: Thank you for choosing the [facility] emergency department in [place] for your medical needs today. It was a pleasure caring for you. You were seen in the emergency department for pain and swelling of your left leg and foot. At this point, your blood work, x-rays, ultrasound, and CT scan look reassuring. We do not see evidence of a blood clot or broken bones in the left leg or foot. There is also no evidence of infection from what I can tell. It is possible that you sprained your left ankle and that some of the swelling is due to soft tissue injury. I would recommend elevating your left leg while you are at home by propping it up on a pillow. You can also try compression stockings as these may help reduce the amount of swelling. You can take [id number] acetaminophen or ibuprofen as directed on the package for pain. You can also apply ice packs, for 10 minutes every hour if you find this helpful. At this point we do not see evidence of a serious cause of your pain and swelling. The numbness may be due to peripheral neuropathy as it seems you are taking gabapentin which is typically prescribed for nerve related numbness or pain. This may be a factor that could cause you to be experiencing some of the numb feeling in your left leg/foot. I would like for you to follow-up with your primary medical clinic in the next 2 to 3 days for reevaluation. If your pain worsens or if you notice that your left leg has become pale or bluish colored, you should come back to the emergency department immediately and not wait to be seen in the clinic. Please return the emergency department immediately if your symptoms worsen or if you feel worse. The following information is given to patients seen in the emergency department who are being discharged. This information is to outline your options for follow-up care. We provide all patients seen in our emergency department with a follow-up referral. The need for follow-up, as well as the timing and circumstances, are variable depending upon the specifics of your emergency department visit. If you don't have a primary care physician on staff, we will provide you with a referral. We always advise you to contact your personal physician following an emergency department visit to inform them of the circumstance of the visit and for follow-up with them and/or the need for any referrals to a consulting specialist. The emergency department will also refer you to a specialist when appropriate. This referral assures that you have the opportunity for follow-up care with a specialist. All of these measure are taken in an effort to provide you with optimal care, which includes your follow-up. Under all circumstances we always encourage you to contact your private physician who remains a resource for coordinating your care. When calling for follow-up care, please make the office aware that this follow-up is from your recent emergency room visit. If for any reason you are refused follow-up, please contact the [facility] Emergency Department at and asked to speak to the emergency department charge nurse. If you do not have a primary care physician that is caring for you, you can contact these clinics below to set up an appointment to establish care: [facility] - Primary Care [address] [place] [id number] [facility] [address] [place] [address] Sepsis Event Note (ED) - Evaluation Sepsis Screening Result: No Definite Risk - Focused Exam Vital Signs: Vital Signs Temp Pulse Resp BP Pulse Ox 01/22/20 05:23 95 16 108/62 93 L 01/22/20 05:01 89 17 115/71 93 L 01/22/20 02:34 94 17 118/71 99 01/22/20 00:49 35.4 C L 113 H 16 121/87 95
[2020-01-22 01:58] LABS: BLOOD UREA NITROGEN,BUN 15 mg/dL (7.0-18.0); CARBON DIOXIDE,CO2 29.8 mmol/L (21.0-32.0); CHLORIDE,CL 106 mmol/L (98-107); GLUCOSE RANDOM 99 mg/dL (74-106); POTASSIUM,K 3.6 mmol/L (3.5-5.1); SODIUM,NA 144 mmol/L (136-145)
--- NOTE | 2020-01-22 02:41 | US ---
INDICATION: Left lower leg swelling and pain TECHNIQUE: Ultrasound venous duplex left lower extremity. Nelson-scale, color Doppler, and spectral Doppler imaging were performed with compression and augmentation. COMPARISON: None FINDINGS: Deep veins: The left common femoral, femoral, popliteal, and visualized calf veins are fully compressible, demonstrate normal color flow, and normal response to mechanical augmentation. The Duplex Doppler waveforms are normal in appearance. Superficial veins: The visualized greater saphenous and superficial veins of the leg and calf are unremarkable. Soft tissue: No masses or cysts are identified. No adenopathy is seen. IMPRESSION: 1. No sonographic evidence of acute deep venous thrombosis seen. Dictated by: Jesus Harman MD @ 01/22/2020 02:39:55 (Electronically Signed)
[2020-01-22] MEDS ORDERED: oxyCODONE 5 MG Tab PO ONE (02:45)
--- NOTE | 2020-01-22 03:26 | CR ---
INDICATION: Fall, tibia swelling TECHNIQUE: Tibia-fibula radiograph 2 views left COMPARISON: None FINDINGS: Bone: No acute fractures or aggressive bone lesions are identified. Joint: The visualized knee and ankle joints are unremarkable. No significant joint effusion is seen. Soft tissue: Unremarkable. No radiopaque foreign bodies are seen. IMPRESSION: 1. No acute osseous injuries or abnormalities are noted. Dictated by: Jesus Harman MD @ 01/22/2020 03:24:25 (Electronically Signed)
--- NOTE | 2020-01-22 03:26 | CR ---
INDICATION: Fall, marked foot swelling to dorsum TECHNIQUE: Foot radiograph 3 views left COMPARISON: None FINDINGS: Bone: No acute fractures or aggressive bone lesions are identified. Joint: The visualized hindfoot, midfoot, and forefoot joints are unremarkable in appearance. No significant ankle effusion is seen. Soft tissue: Unremarkable. No radiopaque foreign bodies are seen. IMPRESSION: 1. No acute osseous injuries or abnormalities are noted. Dictated by: Jesus Harman MD @ 01/22/2020 03:23:53 (Electronically Signed)
[2020-01-22] MEDS ORDERED: Iopamidol 755 Mg/ML 100 ML Bottle IVPUSH ONE (04:20)
[2020-01-22 05:24] VITALS: BP 108/62; PULSE 95
--- NOTE | 2020-01-22 06:02 | CT ---
CLINICAL INFORMATION: 34-year-old with left lower extremity swelling status post fall and concern for possible underlying vascular injury. TECHNIQUE: CT angiography of the pelvis and left lower extremity was performed with intravenous contrast. No enteric contrast was administered and therefore the study has decreased sensitivity for detection of bowel pathology. 3D and/or MIP angiographic reconstructions were performed on a separate independent workstation with concurrent supervision of the image post processing in order to further delineate the angiographic anatomy for accurate interpretation. Contrast: 100 mL of Isovue 370 intravenous contrast was injected uneventfully prior to image acquisition. Radiation Dose Estimate (Total Exam DLP): 1565 mGy-cm. COMPARISON: Left lower extremity radiograph 01/22/2020 FINDINGS: CT Angiography Findings Abdominal aorta: Normal in course and caliber. No aneurysm or dissection. LEFT lower extremity: : Common iliac artery: Patent. Internal iliac artery: Patent. External iliac artery: Patent. Common femoral artery: Patent. Deep femoral artery: Patent. Superficial femoral artery: Patent. Popliteal artery: Patent. Anterior tibial artery: Patent. Peroneal artery: Patent. Posterior tibial artery: Patent. Visceral Findings: No acute pathology in the pelvis. Left lower extremity subcutaneous edema. No evidence for displaced fracture or hematoma. IMPRESSION: 1. Left lower extremity arterial system is widely patent without evidence for underlying vascular injury. 2. Left lower extremity subcutaneous edema. Please note that all CT scans at this facility use dose modulation, iterative reconstruction, and/or weight-based dosing when appropriate to reduce radiation dose to as low as reasonably achievable. Dictated by Karan Barahona MD @ Jan 22 2020 9:50AM Signed by Dr. Karan Barahona @ Jan 22 2020 9:54AM
== END 2020-01-22 06:22 | disposition home or self-care (01) ==
LOC: MW.ED 00:39
DX: S80.812A Abrasion, left lower leg, initial encounter (principal); K21.9 Gastro-esophageal reflux disease without esophagitis; E66.9 Obesity, unspecified; F17.210 Nicotine dependence, cigarettes, uncomplicated; Z68.39 Body mass index [BMI] 39.0-39.9, adult; Z91.048 Other nonmedicinal substance allergy status; Z79.899 Other long term (current) drug therapy; W19.XXXA Unspecified fall, initial encounter
CPT/HCPCS: 36415; 73590-26-LT; 73590-LT; 73630-26-LT; 73630-LT; 73706-26-LT; 73706-LT; 80053; 81001; 82550; 85025; 85379; 93971-26-LT; 93971-LT; 99284-25; A9270-GY; Q9967

== ENCOUNTER 2020-04-06 22:06 | Emergency (ER) | payer MEDICAID ==
[2020-04-06] MEDS ORDERED: Acetaminophen/HYDROcodone 325-5 MG Tab PO ONE (23:04)
--- NOTE | 2020-04-06 23:09 | EDM.PDOC ---
ED HPI GENERAL MEDICAL PROBLEM - General Chief Complaint: General Stated Complaint: SWELLING ON BOTH ANKLES Time Seen by Provider: 04/06/20 22:37 Source of Information: Reports: Patient History Limitations: Reports: No Limitations - History of Present Illness INITIAL COMMENTS - FREE TEXT/NARRATIVE: History of present illness: [Patient is 34-year-old female with a history of muscular dystrophy who presents to the ER with 5 days worth of swelling of the bilateral lower extremities, particularly involving the feet and ankles. She states that she is on her feet a lot and believes this is a contributing factor over the last few days. She denies any major injury or trauma or falls involving the lower extremities. Denies history of DVT or PE. Had similar swelling of the left ankle a couple months back and had a work-up including CT angio and DVT US, both of which were negative for any acute pathology. X-rays at that time also were performed which were negative. Patient denies any chronic kidney problems, she states that she does have some braces that she wears for her legs but that they are uncomfortable. I asked her about compression stockings, she states that they are "hot to wear" making them uncomfortable to the point where she chooses not to wear them. She denies associated chest pain, shortness of breath, fever, chills, or any other complaints at this time.] Review of systems: As per history of present illness and below otherwise all systems reviewed and negative. Past medical history: As per history of present illness and as reviewed below otherwise noncontributory. Surgical history: As per history of present illness and as reviewed below otherwise noncontributory. Social history: No reported history of drug or alcohol abuse. Family history: As per history of present illness and as reviewed below otherwise noncontributory. Physical exam: General: Awake, alert, no acute distress, A&O X3. HEENT: Atraumatic, normocephalic, pupils reactive, negative for conjunctival pallor or scleral icterus, mucous membranes moist, throat clear, neck supple, nontender, trachea midline. Lungs: Clear to auscultation, breath sounds equal bilaterally, chest nontender. Heart: RRR, normal S1S2, no JVD. Abdomen: Soft, nondistended, nontender. Negative for masses or hepatosplenomegaly. Negative for costovertebral tenderness. Pelvis: Stable nontender. Genitourinary: Deferred. Rectal: Deferred. Extremities: Atraumatic, Neurovascular unremarkable, trace edema of the bilateral lower extremities, involving bilateral ankles and feet, palpable pulses and bilateral feet are neurovascular intact. No overlying erythema, no ecchymosis, no gross deformity, no palpable cords in either calf. Neuro: Motor and sensory grossly intact throughout. Exam nonfocal. Diagnostics: [] Therapeutics: [] Impression: [] Plan: [] Definitive disposition and diagnosis as appropriate pending reevaluation and review of above. ankles bilaterally Pain Score (Numeric/FACES): 8 - Related Data Allergies Allergy/AdvReac Type Severity Reaction Status Date / Time adhesive Allergy "skin Verified 04/06/20 22:38 comes off" Home Meds: Home Meds Gabapentin [Neurontin] 300 mg PO BID 01/22/20 [History] Omeprazole Magnesium [Prilosec Otc] 40 mg PO DAILY 04/06/20 [History] tiZANidine [Zanaflex] 2 mg PO Q8H #15 tab 04/07/20 [Rx] Past Medical History - Past Health History Medical/Surgical History: Denies Medical/Surgical History HEENT History: Reports: Impaired Vision Cardiovascular History: Reports: Heart Murmur, High Cholesterol Respiratory History: Reports: Asthma Other Respiratory History: "mild asthma", not on any prescribed inhalers Gastrointestinal History: Reports: GERD Genitourinary History: Reports: UTI, Recurrent 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: Musculoskeletal History: Reports: Other (See Below) Other Musculoskeletal History: mytonic muscular dystrophy Neurological History: Reports: None Other Neuro History: myotonic muscular dystrophy Psychiatric History: Reports: Anxiety, Depression Endocrine/Metabolic History: Reports: Obesity/BMI 30+ Hematologic History: Reports: None Immunologic History: Reports: None Oncologic (Cancer) History: Reports: None Dermatologic History: Reports: None - Infectious Disease History Infectious Disease History: Reports: Chicken Pox - Past Surgical History Head Surgeries/Procedures: Reports: None HEENT Surgical History: Reports: Cataract Surgery Cardiovascular Surgical History: Reports: None Respiratory Surgical History: Reports: None GI Surgical History: Reports: Cholecystectomy, EGD, Other (See Below) Female Surgical History: Reports: Tubal Ligation Endocrine Surgical History: Reports: None Neurological Surgical History: Reports: None Musculoskeletal Surgical History: Reports: None Oncologic Surgical History: Reports: None Dermatological Surgical History: Reports: None Social & Family History - Family History Family Medical History: Noncontributory - Tobacco Use Smoking Status *Q: Current Every Day Smoker Years of Tobacco use: 15 Packs/Tins Daily: 1 - Caffeine Use Caffeine Use: Reports: Soda - Recreational Drug Use Recreational Drug Use: Yes Recreational Drug Type: Reports: Marijuana/Hashish Recreational Drug Use Frequency: Daily ED ROS GENERAL - Review of Systems Review Of Systems: Comprehensive ROS is negative, except as noted in HPI. ED EXAM, GENERAL - Physical Exam Exam: See Below (see h and p) Course - Vital Signs Text/Narrative:: Lab work is reassuring. Kidney function within normal limits. Patient has already had extensive work-up for similar complaint in the past including ultrasound to rule out DVT, CT angio, and x-rays. This seems to be more of a gravity dependent edema associated with bilateral lower extremities, fairly m ild, gave her prescription for compression stockings as well as muscle relaxant for home use for the next few days. Return precautions provided. Otherwise patient is nontoxic and stable at the time of discharge and agreeable with this plan. Last Recorded V/S: Last Vital Signs Temp 36.8 C 04/06/20 22:39 Pulse 88 04/06/20 22:39 Resp 16 04/06/20 22:39 BP 112/68 04/06/20 22:39 Pulse Ox 98 04/06/20 22:39 - Orders/Labs/Meds Orders: Active Orders 24 hr Category Date Time Status DME for Discharge [COMM] Stat Oth 04/06/20 23:05 Ordered Labs: Laboratory Tests 04/06/20 04/06/20 Range/Units 23:55 23:55 WBC 8.34 (4.0-11.0) K/uL RBC 4.47 (4.30-5.90) M/uL Hgb 12.8 (12.0-16.0) g/dL Hct 41.5 (36.0-46.0) % MCV 92.8 (80.0-98.0) fL MCH 28.6 (27.0-32.0) pg MCHC 30.8 L (31.0-37.0) g/dL RDW Std Deviation 47.9 (28.0-62.0) fl RDW Coeff of Anita 14 (11.0-15.0) % Plt Count 275 (150-400) K/uL MPV 10.10 (7.40-12.00) fL Neut % (Auto) 54.7 (48.0-80.0) % Lymph % (Auto) 35.1 (16.0-40.0) % Preston % (Auto) 5.9 (0.0-15.0) % Eos % (Auto) 3.7 (0.0-7.0) % Baso % (Auto) 0.6 (0.0-1.5) % Neut # (Auto) 4.6 (1.4-5.7) K/uL Lymph # (Auto) 2.9 H (0.6-2.4) K/uL Preston # (Auto) 0.5 (0.0-0.8) K/uL Eos # (Auto) 0.3 (0.0-0.7) K/uL Baso # (Auto) 0.1 (0.0-0.1) K/uL Nucleated RBC % 0.0 /100WBC Nucleated RBCs # 0 K/uL Sodium 143 (136-145) mmol/L Potassium 4.4 (3.5-5.1) mmol/L Chloride 109 H (98-107) mmol/L Carbon Dioxide 30.4 (21.0-32.0) mmol/L BUN 9 (7.0-18.0) mg/dL Creatinine 0.9 (0.6-1.0) mg/dL Est Cr Clr Drug Dosing 91.18 mL/min Estimated GFR (MDRD) > 60.0 ml/min Glucose 122 H (74-106) mg/dL Calcium 8.9 (8.5-10.1) mg/dL Creatine Kinase 746 H (26-308) U/L Meds: Medications Discontinued Medications Generic Name Dose Route Start Last Admin Trade Name Freq PRN Reason Stop Dose Admin Hydrocodone Bitart/Acetaminophen 1 tab 04/06/20 23:04 04/06/20 23:56 [place] 325-5 Mg PO 04/06/20 23:05 1 tab ONETIME ONE Administration Departure - Departure Time of Disposition: 00:46 Disposition: Home, Self-Care 01 Condition: Good Clinical Impression: Edema of both lower legs - Discharge Information Prescriptions: tiZANidine [Zanaflex] 2 mg PO Q8H #15 tab Instructions: Edema Referrals: Candice Mehta PA [Primary Care Provider] - Forms: ED Department Discharge Additional Instructions: Follow-up with primary care doctor. Take all medications as prescribed. Return to the ER with any new or worsening symptoms. The following information is given to patients seen in the emergency department who are being discharged to home. This information is to outline your options for follow-up care. We provide all patients seen in our emergency department with a follow-up referral. The need for follow-up, as well as the timing and circumstances, are variable depending upon the specifics of your emergency department visit. If you don't have a primary care physician on staff, we will provide you with a referral. We always advise you to contact your personal physician following an emergency department visit to inform them of the circumstance of the visit and for follow-up with them and/or the need for any referrals to a consulting specialist. The emergency department will also refer you to a specialist when appropriate. This referral assures that you have the opportunity for follow-up care with a specialist. All of these measure are taken in an effort to provide you with optimal care, which includes your follow-up. Under all circumstances we always encourage you to contact your private physician who remains a resource for coordinating your care. When calling for follow-up care, please make the office aware that this follow-up is from your recent emergency room visit. If for any reason you are refused follow-up, please contact the [facility] Emergency Department at and asked to speak to the emergency department charge nurse. Sepsis Event Note (ED) - Evaluation Sepsis Screening Result: No Definite Risk - Focused Exam Vital Signs: Vital Signs Temp Pulse Resp BP Pulse Ox 04/06/20 22:39 36.8 C 88 16 112/68 98 - My Orders Last 24 Hours: My Active Orders 04/06/20 23:05 DME for Discharge [COMM] Stat - Assessment/Plan Last 24 Hours: My Active Orders 04/06/20 23:05 DME for Discharge [COMM] Stat
[2020-04-07 00:39] LABS: BLOOD UREA NITROGEN,BUN 9 mg/dL (7.0-18.0); CARBON DIOXIDE,CO2 30.4 mmol/L (21.0-32.0); CHLORIDE,CL 109 mmol/L (98-107); GLUCOSE RANDOM 122 mg/dL (74-106); POTASSIUM,K 4.4 mmol/L (3.5-5.1); SODIUM,NA 143 mmol/L (136-145)
[2020-04-07 01:02] VITALS: BP 103/63; PULSE 89
== END 2020-04-07 01:05 | disposition home or self-care (01) ==
LOC: MW.ED 22:06
DX: R60.0 Localized edema (principal); J45.909 Unspecified asthma, uncomplicated; K21.9 Gastro-esophageal reflux disease without esophagitis; E66.9 Obesity, unspecified; Z68.41 Body mass index [BMI] 40.0-44.9, adult; F17.210 Nicotine dependence, cigarettes, uncomplicated; Z98.51 Tubal ligation status; Z90.49 Acquired absence of other specified parts of digestive tract; Z91.09 Other allergy status, other than to drugs and biological substances
CPT/HCPCS: 36415; 80048; 82550; 85025; 99284; A9270; 99282

== ENCOUNTER 2020-06-29 21:01 | Emergency (ER) | payer MEDICAID ==
--- NOTE | 2020-06-29 21:26 | EDM.PDOC ---
ED HPI GENERAL MEDICAL PROBLEM - General Chief Complaint: General Stated Complaint: LT LEG SWELLING Time Seen by Provider: 06/29/20 21:02 Source of Information: Reports: Patient History Limitations: Reports: No Limitations - History of Present Illness INITIAL COMMENTS - FREE TEXT/NARRATIVE: 34-year-old female presents with atraumatic left lower leg and ankle pain and swelling 3 days ago. Pain is moderate, localized to the left ankle, nonradiating, constant, sharp, alleviated with immobilization, exacerbated with range of motion. She denies fever, chills, redness, warmth. ROS: A 10-point review of systems, other than pertinent positives and negatives as stated per HPI, is otherwise negative Past medical history: No additional pertinent history Past Surgical history: No additional pertinent history Social history: No additional pertinent history Family history: No additional pertinent history PHYSICAL EXAM General: AOx4, GCS = 15, No distress HEENT: dry mucous membrane Neck: supple, no meningismus, no Kernig or Brudzinski Cardiac: S1S2 RRR Respiratory: CTAB, no crackles or rales, no wheezing Abdomen: Soft, nontender, no rebound or guarding, nondistended, no pulsatile mass. Back: nontender Musculoskeletal: NVI distally, left lateral malleolus tender to palpation, mild tenderness to left distal calf. No deformity Neuro: No focal deficits, CN 2 - 12 WNL. lower extremities bilaterally Pain Score (Numeric/FACES): 8 - Related Data Allergies Allergy/AdvReac Type Severity Reaction Status Date / Time adhesive Allergy "skin Verified 06/29/20 21:09 comes off" Home Meds: Home Meds Gabapentin [Neurontin] 300 mg PO BID 01/22/20 [History] Omeprazole Magnesium [Prilosec Otc] 40 mg PO DAILY 04/06/20 [History] tiZANidine [Zanaflex] 2 mg PO Q8H #15 tab 04/07/20 [Rx] Naproxen [Naprosyn] 500 mg PO Q12HR #30 tab 06/29/20 [Rx] Past Medical History - Past Health History Medical/Surgical History: Denies Medical/Surgical History HEENT History: Reports: Impaired Vision Cardiovascular History: Reports: Heart Murmur, High Cholesterol Respiratory History: Reports: Asthma Other Respiratory History: "mild asthma", not on any prescribed inhalers Gastrointestinal History: Reports: GERD Genitourinary History: Reports: UTI, Recurrent 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: Musculoskeletal History: Reports: Other (See Below) Other Musculoskeletal History: mytonic muscular dystrophy Neurological History: Reports: None Other Neuro History: myotonic muscular dystrophy Psychiatric History: Reports: Anxiety, Depression Endocrine/Metabolic History: Reports: Obesity/BMI 30+ Hematologic History: Reports: None Immunologic History: Reports: None Oncologic (Cancer) History: Reports: None Dermatologic History: Reports: None - Infectious Disease History Infectious Disease History: Reports: Chicken Pox - Past Surgical History Head Surgeries/Procedures: Reports: None HEENT Surgical History: Reports: Cataract Surgery Cardiovascular Surgical History: Reports: None Other Cardiovascular Surgeries/Procedures: mytonic disturphy Respiratory Surgical History: Reports: None Other Respiratory Surgeries/Procedures: aspirated while have surgery GI Surgical History: Reports: Cholecystectomy, EGD, Other (See Below) Other GI Surgeries/Procedures: EGD x4 Female Surgical History: Reports: Tubal Ligation Endocrine Surgical History: Reports: None Neurological Surgical History: Reports: None Musculoskeletal Surgical History: Reports: None Oncologic Surgical History: Reports: None Dermatological Surgical History: Reports: None Social & Family History - Family History Family Medical History: No Pertinent Family History - Tobacco Use Tobacco Use Status *Q: Current Every Day Tobacco User Years of Tobacco use: 20 Packs/Tins Daily: 1 - Caffeine Use Caffeine Use: Reports: Soda - Recreational Drug Use Recreational Drug Use: Yes Recreational Drug Type: Reports: Marijuana/Hashish ED ROS GENERAL - Review of Systems Review Of Systems: See Below (see dictation) ED EXAM, GENERAL - Physical Exam Exam: See Below (see dictation) ED GENERAL MEDICAL PROCEDURES - Splinting Left Lower Extremity Splint Site: Left lower extremity Pre-procedure NV status: Normal Post-procedure NV status: Normal Splint Material: Boot Orthotic Applied & Form Fitted By: Nurse Provider Post-Splint Application NV Check: NV Status Normal, Good Position Complications: No Course - Vital Signs Last Recorded V/S: Last Vital Signs Temp 97.8 F 06/29/20 21:10 Pulse 88 06/29/20 22:09 Resp 16 06/29/20 22:09 BP 105/71 06/29/20 22:09 Pulse Ox 96 06/29/20 22:09 - Orders/Labs/Meds Orders: Active Orders 24 hr Category Date Time Status Naproxen [Naprosyn] Med 06/29/20 22:37 Once 500 mg PO ONETIME ONE DME for Discharge [COMM] Stat Oth 06/29/20 22:37 Ordered - Re-Assessments/Exams Free Text/Narrative Re-Assessment/Exam: 06/29/20 22:38 After postop shoe application in the ER, the patient improved and is currently stable for discharge. I performed a repeat exam and did not appreciate new abnormal findings. Patient exhibits normal vital signs and has a normal gait on road test. I advised the patient to return to the ER for reevaluation if symptoms worsened, including fever, worsening pain, or any other worrisome symptoms. I instructed the patient to follow up with their PCP within 2-3 days. MEDICAL DECISION MAKING: I reviewed the patients past medical records, lab and radiographic findings. I discussed the case with the patient. My differential diagnosis included: Tendinitis, calf strain, DVT, fracture. Ultrasound was negative for DVT, x-ray did not demonstrate fracture or dislocation, there is no erythema or warmth or fever, I do not suspect infectious etiology. Departure - Departure Time of Disposition: 22:39 Disposition: Home, Self-Care 01 Condition: Good Clinical Impression: Left ankle strain - Discharge Information *PRESCRIPTION DRUG MONITORING PROGRAM REVIEWED*: Not Applicable *COPY OF PRESCRIPTION DRUG MONITORING REPORT IN PATIENT AGUSTNI: Not Applicable Prescriptions: Naproxen [Naprosyn] 500 mg PO Q12HR #30 tab Instructions: Ankle Sprain With Phase I Rehab-SportsMed Referrals: Sejal Means NP [Primary Care Provider] - 3 Days Forms: ED Department Discharge Additional Instructions: The need for follow-up, as well as the timing and circumstances, are variable depending upon the specifics of your emergency department visit. If you don't have a primary care physician on staff, we will provide you with a referral. We always advise you to contact your personal physician following an emergency department visit to inform them of the circumstance of the visit and for follow-up with them and/or the need for any referrals to a consulting specialist. The emergency department will also refer you to a specialist when appropriate. This referral assures that you have the opportunity for follow-up care with a specialist. All of these measure are taken in an effort to provide you with optimal care, which includes your follow-up. Under all circumstances we always encourage you to contact your private physician who remains a resource for coordinating your care. When calling for follow-up care, please make the office aware that this follow-up is from your recent emergency room visit. If for any reason you are refused follow-up, please contact the [facility] Emergency Department at and asked to speak to the emergency department charge nurse. If you do not have a primary care doctor, please follow up with the clinics below within 3-5 days. [facility] - Primary Care [address] [place] [id number] [facility] [address] [place] [id number] Sepsis Event Note (ED) - Evaluation Sepsis Screening Result: No Definite Risk - Focused Exam Vital Signs: Vital Signs Temp Pulse Resp BP Pulse Ox 06/29/20 22:09 88 16 105/71 96 06/29/20 21:10 97.8 F 98 20 121/74 96 - My Orders Last 24 Hours: My Active Orders 06/29/20 22:37 Naproxen [Naprosyn] 500 mg PO ONETIME ONE DME for Discharge [COMM] Stat - Assessment/Plan Last 24 Hours: My Active Orders 06/29/20 22:37 Naproxen [Naprosyn] 500 mg PO ONETIME ONE DME for Discharge [COMM] Stat
--- NOTE | 2020-06-29 21:58 | CR ---
HISTORY: Left lower extremity swelling. No specific injury. TECHNIQUE: Three views of the left ankle. COMPARISON: 01/22/2020. FINDINGS: No acute fracture or malalignment. Soft tissue swelling is present. Spurring at the Achilles attachment to posterior calcaneus. No soft tissue gas or radiopaque foreign body. IMPRESSION: 1. Soft tissue swelling. 2. No acute fracture or malalignment. Dictated by Carlos Soriano MD @ 06/29/2020 9:57:41 PM Dictated by: Carlos Soriano MD @ 06/29/2020 21:57:51 (Electronically Signed)
[2020-06-29 22:22] VITALS: BP 105/71; PULSE 88
--- NOTE | 2020-06-29 22:32 | US ---
INDICATION: Leg Pain, swelling left TECHNIQUE: Ultrasound venous duplex left lower extremity. Nelson-scale, color Doppler, and spectral Doppler imaging were performed with compression and augmentation. COMPARISON: 01/22/2020 FINDINGS: Deep veins: The left common femoral, femoral, popliteal, and visualized calf veins are fully compressible, demonstrate normal color flow, and normal response to mechanical augmentation. The Duplex Doppler waveforms are normal in appearance. Superficial veins: The visualized greater saphenous and superficial veins of the leg and calf are unremarkable. Soft tissue: No masses or cysts are identified. No adenopathy is seen. IMPRESSION: 1. No sonographic evidence of acute deep venous thrombosis seen. Dictated by: Jesus Harman MD @ 06/29/2020 22:29:39 (Electronically Signed)
[2020-06-29] MEDS ORDERED: Naproxen 500 MG Tab PO ONE (22:37)
== END 2020-06-29 22:50 | disposition home or self-care (01) ==
LOC: MW.ED 21:01
DX: S96.912A Strain of unspecified muscle and tendon at ankle and foot level, left foot, initial encounter (principal); E78.00 Pure hypercholesterolemia, unspecified; J45.909 Unspecified asthma, uncomplicated; K21.9 Gastro-esophageal reflux disease without esophagitis; E66.9 Obesity, unspecified; F17.210 Nicotine dependence, cigarettes, uncomplicated; Z91.048 Other nonmedicinal substance allergy status; Z79.899 Other long term (current) drug therapy; Z68.39 Body mass index [BMI] 39.0-39.9, adult; X58.XXXA Exposure to other specified factors, initial encounter
CPT/HCPCS: 73610; 93971; 99284; A9270; 99283

== ENCOUNTER 2020-11-08 17:39 | Emergency (ER) | payer MEDICAID ==
[2020-11-08] MEDS ORDERED: Ketorolac 60 MG/2 ML SDV IM ONE (18:27)
[2020-11-08] MEDS ORDERED: Amoxicillin/Clavulanate K 875-125 MG Tab PO ONE (18:28)
--- NOTE | 2020-11-08 18:39 | EDM.PDOC ---
ED HPI GENERAL MEDICAL PROBLEM - General Chief Complaint: ENT Problem Stated Complaint: ABCESS IN MOUTH Time Seen by Provider: 11/08/20 17:44 Source of Information: Reports: Patient History Limitations: Reports: No Limitations - History of Present Illness INITIAL COMMENTS - FREE TEXT/NARRATIVE: HISTORY AND PHYSICAL: History of present illness: The patient is a 35-year-old female who presents to the emergency room with complaints of right upper palate pain which started 4 days ago. She rates her pain 10 out of 10. She states that she has a bridge that involves 3 teeth on the right posterior and is not having any difficulty with them at this time. She has been drinking adequate amount but has not been able to eat as well. She states that she has been using salt water and peroxide gargles. The patient was seen in the clinic today for complaints of right ear pain. She was prescribed Augmentin 875/125 mg. She has taken 1 dose. She states she did not realize that her mouth was swollen. She thought the pain was coming from her ear. Patient denies any fever, chills, headache, change in vision, syncope or near syncope. Denies any chest pain, back pain, shortness of breath or cough. Denies any abdominal pain, nausea, vomiting, diarrhea, constipation or dysuria. Has not noted any blood in urine or stool. Patient has been eating and drinking appropriately. Review of systems: As per history of present illness and below otherwise all systems reviewed and negative. Past medical history: As per history of present illness and as reviewed below otherwise no ncontributory. Surgical history: As per history of present illness and as reviewed below otherwise noncontributory. Social history: See social history for further information Family history: As per history of present illness and as reviewed below otherwise noncontributory. Physical exam: General: Well developed and well nourished. Alert and orientated x 3. Nontoxic in appearance and in no acute distress. Vital signs are stable and have been reviewed by me. Nursing notes were reviewed. HEENT: Atraumatic, normocephalic, pupils equal and reactive bilaterally, negative for conjunctival pallor or scleral icterus, mucous membranes moist, Right TM red and bulging, throat clear, neck supple, nontender, trachea midline. Right upper pallet erythematous and swollen. Facial sinuses tender. No fluctuance noted. No drooling or trismus noted. No meningeal signs. No hot potato voice noted. Lungs: Clear to auscultation bilaterally. No wheezes, rales, or rhonchi. Chest nontender. Normal work of breathing, no accessory muscles used. Heart: S1S2, regular rate and rhythm without overt murmur, gallops, or rubs. No JVD. No peripheral edema Abdomen: Soft, nondistended, nontender. Normoactive bowel sounds. Negative for masses or costovertebral tenderness. Skin: Intact, warm, dry. No lesions or rashes noted. Hematologic: No petechiae or purpra. Mucosa appropriate color and normal nail bed color and refill. Extremities: Atraumatic, moves all extremities per self without difficulty or deficits, negative for cords or calf pain. Neurovascular unremarkable. Neuro: Awake, alert, oriented. Cranial nerves II through XII unremarkable. Cerebellum unremarkable. Motor and sensory unremarkable throughout. Exam nonfocal. Psychiatric: Mood and affect are appropriate. Normal thought process. Answering questions appropriately. Notes: *This patient was seen and evaluated during the 2019 SARS-CoV-2 novel coronavirus pandemic period. Community viral transmission is ongoing at time of this encounter and the emergency department is operating under pandemic response procedures. After examination and discussion the patient is agreeable to labs, facial CT, IV fluids, Zofran, and Dilaudid for pain control. Facial CT impression: No acute findings. The patient will continue to take her prescribed Augmentin and follow up with her primary care provider. I have talked with the patient about today's findings, in addition to providing specific details for plan of care. Reassessment at the time of disposition demonstrates that the patient is in no acute distress. The patient is stable for discharge, counseling was provided and we discussed in great detail signs and symptoms that would prompt them to return to the Emergency Department. Medication, follow up and supportive care measures were reviewed and discussed. Voices understanding and is agreeable to plan of care. Denies any further questions or concerns at this time. Diagnostics: CBC, CMP, facial CT Therapeutics: Zofran, Dilaudid Impression: Dental abcess Plan: 1. You were evaluated today on an emergent basis. Your right oral swelling and facial pain was evaluated today with lab work and a facial CT. No abscess or acute infection noted on CT. Continue on your Augmentin as prescribed from clinic today. You can use warm or cool compresses to your face for pain. You can take Aleve twice a day for pain. If you have increased oral swelling please return to the emergency department. 2. You can alternate Tylenol and ibuprofen as needed for pain and fever management. 3. We encourage you to follow up with your primary care provider and/or recommended specialist in the next few days for re-evaluation and further care/management. 4. If your symptoms should worsen, new symptoms develop or any of the signs and symptoms we discussed should arise please return to the emergency room or call 911 (if needed). Definitive disposition and diagnosis as appropriate pending reevaluation and review of above. right jaw Pain Score (Numeric/FACES): 10 - Related Data Allergies Allergy/AdvReac Type Severity Reaction Status Date / Time adhesive Allergy "skin Verified 06/29/20 21:09 comes off" Home Meds: Home Meds Gabapentin [Neurontin] 300 mg PO BID 01/22/20 [History] Omeprazole Magnesium [Prilosec Otc] 40 mg PO DAILY 04/06/20 [History] tiZANidine [Zanaflex] 2 mg PO Q8H #15 tab 04/07/20 [Rx] Naproxen [Naprosyn] 500 mg PO Q12HR #30 tab 06/29/20 [Rx] Amoxicillin/Potassium Clav [Augmentin 875-125 Tablet] 1 each PO BID 7 Days #13 tablet 11/08/20 [Rx] Sertraline [Zoloft] 0 mg 11/08/20 [History] Past Medical History - Past Health History Medical/Surgical History: Denies Medical/Surgical History HEENT History: Reports: Impaired Vision Cardiovascular History: Reports: Heart Murmur, High Cholesterol Respiratory History: Reports: Asthma Other Respiratory History: "mild asthma", not on any prescribed inhalers Gastrointestinal History: Reports: GERD Genitourinary History: Reports: UTI, Recurrent CH[employer]ER History: Reports: Musculoskeletal History: Reports: Other (See Below) Other Musculoskeletal History: mytonic muscular dystrophy Neurological History: Reports: None Other Neuro History: myotonic muscular dystrophy Psychiatric History: Reports: Anxiety, Depression Endocrine/Metabolic History: Reports: Obesity/BMI 30+ Hematologic History: Reports: None Immunologic History: Reports: None Oncologic (Cancer) History: Reports: None Dermatologic History: Reports: None - Infectious Disease History Infectious Disease History: Reports: Chicken Pox - Past Surgical History Head Surgeries/Procedures: Reports: None HEENT Surgical History: Reports: Cataract Surgery Cardiovascular Surgical History: Reports: None Other Cardiovascular Surgeries/Procedures: mytonic disturphy Respiratory Surgical History: Reports: None Other Respiratory Surgeries/Procedures: aspirated while have surgery GI Surgical History: Reports: Cholecystectomy, EGD, Other (See Below) Other GI Surgeries/Procedures: EGD x4 Female Surgical History: Reports: Tubal Ligation Endocrine Surgical History: Reports: None Neurological Surgical History: Reports: None Musculoskeletal Surgical History: Reports: None Oncologic Surgical History: Reports: None Dermatological Surgical History: Reports: None Social & Family History - Family History Family Medical History: No Pertinent Family History - Caffeine Use Caffeine Use: Reports: Soda ED ROS ENT - Review of Systems Review Of Systems: Comprehensive ROS is negative, except as noted in HPI. ED EXAM, ENT - Physical Exam Exam: See Below (See dictation) Course - Vital Signs Last Recorded V/S: Last Vital Signs Temp 98.7 F 11/08/20 17:45 Pulse 103 H 11/08/20 21:10 Resp 16 11/08/20 17:45 BP 116/79 11/08/20 21:10 Pulse Ox 97 11/08/20 21:10 - Orders/Labs/Meds Orders: Active Orders 24 hr Category Date Time Status Saline Lock Insert [OM.PC] Stat Oth 11/08/20 18:43 Ordered Labs: Laboratory Tests 11/08/20 11/08/20 Range/Units 19:43 19:43 WBC 9.11 (4.0-11.0) K/uL RBC 5.52 (4.30-5.90) M/uL Hgb 16.3 H (12.0-16.0) g/dL Hct 50.4 H (36.0-46.0) % MCV 91.3 (80.0-98.0) fL MCH 29.5 (27.0-32.0) pg MCHC 32.3 (31.0-37.0) g/dL RDW Std Deviation 45.2 (28.0-62.0) fl RDW Coeff of Anita 13 (11.0-15.0) % Plt Count 202 (150-400) K/uL MPV 10.50 (7.40-12.00) fL Neut % (Auto) 77.1 (48.0-80.0) % Lymph % (Auto) 14.6 L (16.0-40.0) % Major % (Auto) 7.6 (0.0-15.0) % Eos % (Auto) 0.5 (0.0-7.0) % Baso % (Auto) 0.2 (0.0-1.5) % Neut # (Auto) 7.0 H (1.4-5.7) K/uL Lymph # (Auto) 1.3 (0.6-2.4) K/uL Major # (Auto) 0.7 (0.0-0.8) K/uL Eos # (Auto) 0.1 (0.0-0.7) K/uL Baso # (Auto) 0.0 (0.0-0.1) K/uL Nucleated RBC % 0.0 /100WBC Nucleated RBCs # 0 K/uL Sodium 141 (136-145) mmol/L Potassium 3.6 (3.5-5.1) mmol/L Chloride 103 (98-107) mmol/L Carbon Dioxide 29.3 (21.0-32.0) mmol/L BUN 10 (7.0-18.0) mg/dL Creatinine 1.0 (0.6-1.0) mg/dL Est Cr Clr Drug Dosing 81.28 mL/min Estimated GFR (MDRD) > 60.0 ml/min Glucose 108 H (74-106) mg/dL Calcium 9.4 (8.5-10.1) mg/dL Total Bilirubin 0.3 (0.2-1.0) mg/dL AST 38 H (15-37) IU/L ALT 49 (14-63) IU/L Alkaline Phosphatase 122 H (46-116) U/L Total Protein 8.1 (6.4-8.2) g/dL Albumin 3.4 (3.4-5.0) g/dL Globulin 4.7 H (2.6-4.0) g/dL Albumin/Globulin Ratio 0.7 L (0.9-1.6) Meds: Medications Discontinued Medications Generic Name Dose Route Start Last Admin Trade Name Freq PRN Reason Stop Dose Admin Amoxicillin/Clavulanate Potassium 1 tab 11/08/20 18:28 11/08/20 19:09 Amoxicillin/Clavulanate K 875-125 Mg Tab PO 11/08/20 18:29 Not Given ONETIME ONE Hydromorphone HCl 1 mg 11/08/20 18:45 11/08/20 19:29 Hydromorphone 1 Mg/Ml Syringe IVPUSH 11/08/20 18:46 1 mg ONETIME ONE Administration Sodium Chloride 1,000 mls @ 999 mls/hr 11/08/20 18:43 11/08/20 19:29 Normal Saline IV 11/08/20 19:43 999 mls/hr .BOLUS ONE Administration Iopamidol 75 ml 11/08/20 20:32 11/08/20 20:32 Iopamidol 755 Mg/Ml 500 Ml Multipack Bottle IVPUSH 11/08/20 20:33 75 ml ONETIME STA Administration Ketorolac Tromethamine 60 mg 11/08/20 18:27 11/08/20 19:09 Ketorolac 60 Mg/2 Ml Sdv IM 11/08/20 18:28 Not Given ONETIME ONE Ondansetron HCl 4 mg 11/08/20 18:46 11/08/20 19:29 Ondansetron 4 Mg/2 Ml Sdv IVPUSH 11/08/20 18:47 4 mg ONETIME ONE Administration Sodium Chloride 10 ml 11/08/20 18:44 11/08/20 19:29 Sodium Chloride 0.9% 10 Ml Syringe FLUSH 10 ml ASDIRECTED PRN Administration Keep Vein Open Sodium Chloride 2.5 ml 11/08/20 18:44 11/08/20 19:29 Sodium Chloride 0.9% 2.5 Ml Syringe FLUSH 2.5 ml ASDIRECTED PRN Administration Keep Vein Open Departure - Departure Time of Disposition: 20:58 Disposition: Home, Self-Care 01 Condition: Good Clinical Impression: Dental abscess - Discharge Information *PRESCRIPTION DRUG MONITORING PROGRAM REVIEWED*: Not Applicable *COPY OF PRESCRIPTION DRUG MONITORING REPORT IN PATIENT AGUSTIN: Not Applicable Prescriptions: Amoxicillin/Potassium Clav [Augmentin 875-125 Tablet] 1 each PO BID 7 Days #13 tablet Instructions: Dental Abscess, [id number] Referrals: Sejal Means RESIDENTIAL SUPPORT SPECIALIST [Primary Care Provider] - Forms: ED Department Discharge Additional Instructions: The following information is given to patients seen in the emergency department who are being discharged to home. This information is to outline your options for follow-up care. We provide all patients seen in our emergency department with a follow-up referral. The need for follow-up, as well as the timing and circumstances, are variable depending upon the specifics of your emergency department visit. If you don't have a primary care physician on staff, we will provide you with a referral. We always advise you to contact your personal physician following an emergency department visit to inform them of the circumstance of the visit and for follow-up with them and/or the need for any referrals to a consulting specialist. The emergency department will also refer you to a specialist when appropriate. This referral assures that you have the opportunity for follow-up care with a specialist. All of these measure are taken in an effort to provide you with optimal care, which includes your follow-up. Under all circumstances we always encourage you to contact your private physician who remains a resource for coordinating your care. When calling for follow-up care, please make the office aware that this follow-up is from your recent emergency room visit. If for any reason you are refused follow-up, please contact the [facility] Emergency Department at and asked to speak to the emergency department charge nurse. [facility] [address] [place] [id number] [address] [address] Plan: 1. You were evaluated today on an emergent basis. Your right oral swelling and facial pain was evaluated today with lab work and a facial CT. No abscess or acute infection noted on CT. Continue on your Augmentin as prescribed from clinic today. You can use warm or cool compresses to your face for pain. You can take Aleve twice a day for pain. If you have increased oral swelling please return to the emergency department. 2. You can alternate Tylenol and ibuprofen as needed for pain and fever management. 3. We encourage you to follow up with your primary care provider and/or recommended specialist in the next few days for re-evaluation and further care/management. 4. If your symptoms should worsen, new symptoms develop or any of the signs and symptoms we discussed should arise please return to the emergency room or call 911 (if needed). Sepsis Event Note (ED) - Evaluation Sepsis Screening Result: No Definite Risk - Focused Exam Vital Signs: Vital Signs Temp Pulse Resp BP Pulse Ox 11/08/20 21:10 103 H 116/79 97 11/08/20 17:45 98.7 F 121 H 16 116/83 98 - My Orders Last 24 Hours: My Active Orders 11/08/20 18:43 Saline Lock Insert [OM.PC] Stat - Assessment/Plan Last 24 Hours: My Active Orders 11/08/20 18:43 Saline Lock Insert [OM.PC] Stat
[2020-11-08] MEDS ORDERED: Sodium Chloride 0.9% 1,000 ML IV ONE (18:43)
[2020-11-08] MEDS ORDERED: Sodium Chloride 0.9% 2.5 ML Syringe FLUSH PRN (18:44)
[2020-11-08] MEDS ORDERED: Sodium Chloride 0.9% 10 ML Syringe FLUSH PRN (18:44)
[2020-11-08] MEDS ORDERED: HYDROmorphone 1 MG/ML Syringe IVPUSH ONE (18:45)
[2020-11-08] MEDS ORDERED: Ondansetron 4 MG/2 ML SDV IVPUSH ONE (18:46)
[2020-11-08 20:09] LABS: BLOOD UREA NITROGEN,BUN 10 mg/dL (7.0-18.0); CARBON DIOXIDE,CO2 29.3 mmol/L (21.0-32.0); CHLORIDE,CL 103 mmol/L (98-107); GLUCOSE RANDOM 108 mg/dL (74-106); POTASSIUM,K 3.6 mmol/L (3.5-5.1); SODIUM,NA 141 mmol/L (136-145)
[2020-11-08] MEDS ORDERED: Iopamidol 755 MG/ML 500 ML Multipack Bottle IVPUSH STA (20:32)
--- NOTE | 2020-11-08 20:51 | CT ---
INDICATION: Swelling of the right palate. TECHNIQUE: IV contrast-enhanced CT of the face. 75 mL [id number] injected. FINDINGS: Streak artifact from dental amalgam obscures portions of the palate and pharynx. There are no acute inflammatory changes, abscess, or fluid collections in the face. Salivary glands are normal. There are few mildly prominent, likely reactive cervical lymph nodes. Mild mucosal thickening in the right maxillary sinus. Paranasal sinuses, middle ears, and mastoid air cells are otherwise clear. The tonsils are prominent, but within normal. Parapharyngeal spaces are clear. Orbits are normal. IMPRESSION: No acute findings. Please note that all CT scans at this facility use dose modulation, iterative reconstruction, and/or weight-based dosing when appropriate to reduce radiation dose to as low as reasonably achievable. Dictated by Wilber Gonzalez MD @ 11/08/2020 8:49:[address] Wilber Gonzalez @ Nov 08 2020 8:49PM
[2020-11-08 21:17] VITALS: BP 116/79; PULSE 103
== END 2020-11-08 21:15 | disposition home or self-care (01) ==
LOC: MW.ED 17:39
DX: K04.7 Periapical abscess without sinus (principal); J45.909 Unspecified asthma, uncomplicated; K21.9 Gastro-esophageal reflux disease without esophagitis; E66.9 Obesity, unspecified; Z68.41 Body mass index [BMI] 40.0-44.9, adult; Z91.048 Other nonmedicinal substance allergy status; Z79.899 Other long term (current) drug therapy
CPT/HCPCS: 36415; 70487; 80053; 85025; 96374; 96375; 99283; J1170; J2405; J7030; Q9967; 99284

== ENCOUNTER 2021-06-30 04:47 | Emergency (ER) | payer MEDICAID ==
[2021-06-30 04:59] VITALS: BP 133/76; PULSE 103
[2021-06-30] MEDS ORDERED: Acetaminophen/oxyCODONE 325-5 MG Tab PO ONE (05:06)
--- NOTE | 2021-06-30 05:08 | EDM.PDOC ---
ED HPI GENERAL MEDICAL PROBLEM - General Chief Complaint: Lower Extremity Injury/Pain Stated Complaint: FELL AND HURT LEFT KNEE Time Seen by Provider: 06/30/21 05:03 Source of Information: Reports: Patient History Limitations: Reports: No Limitations - History of Present Illness INITIAL COMMENTS - FREE TEXT/NARRATIVE: 35-year-old female with history of muscular dystrophy presents with left knee pain status post fall at 10:30 AM yesterday. She tripped and fell on her left knee at home. She admits to pain that is moderate, constant, localized to the left knee, nonradiating, constant, no alleviating factors, exacerbated with range of motion. ROS: A 10-point review of systems, other than pertinent positives and negatives as stated per HPI, is otherwise negative Past medical history: No additional pertinent history Past Surgical history: No additional pertinent history Social history: No additional pertinent history Family history: No additional pertinent history PHYSICAL EXAM General: AOx4, GCS = 15, mild distress HEENT: dry mucous membrane Neck: supple, no meningismus, no Kernig or Brudzinski Cardiac: S1S2 RRR Respiratory: CTAB, no crackles or rales, no wheezing Abdomen: Soft, nontender, no rebound or guarding, nondistended, no pulsatile mass. Back: nontender Musculoskeletal: NVI distally, left knee tender to palpation with mild effusion, no deformity Neuro: No focal deficits, CN 2 - 12 WNL. Left Knee Pain Score (Numeric/FACES): 9 - Related Data Allergies Allergy/AdvReac Type Severity Reaction Status Date / Time adhesive Allergy "skin Verified 06/30/21 04:51 comes off" Home Meds: Home Meds Gabapentin [Neurontin] 300 mg PO BID 01/22/20 [History] Omeprazole Magnesium [Prilosec Otc] 40 mg PO DAILY 04/06/20 [History] tiZANidine [Zanaflex] 2 mg PO Q8H #15 tab 04/07/20 [Rx] Naproxen [Naprosyn] 500 mg PO Q12HR #30 tab 06/30/21 [Rx] Past Medical History - Past Health History Medical/Surgical History: Denies Medical/Surgical History HEENT History: Reports: Impaired Vision Cardiovascular History: Reports: Heart Murmur, High Cholesterol Respiratory History: Reports: Asthma Other Respiratory History: "mild asthma", not on any prescribed inhalers Gastrointestinal History: Reports: GERD Genitourinary History: Reports: UTI, Recurrent DISPOSAL MAN History: Reports: Musculoskeletal History: Reports: Other (See Below) Other Musculoskeletal History: mytonic muscular dystrophy Neurological History: Reports: None Other Neuro History: myotonic muscular dystrophy Psychiatric History: Reports: Anxiety, Depression Endocrine/Metabolic History: Reports: Obesity/BMI 30+ Hematologic History: Reports: None Immunologic History: Reports: None Oncologic (Cancer) History: Reports: None Dermatologic History: Reports: None - Infectious Disease History Infectious Disease History: Reports: Chicken Pox - Past Surgical History Head Surgeries/Procedures: Reports: None HEENT Surgical History: Reports: Cataract Surgery Cardiovascular Surgical History: Reports: None Other Cardiovascular Surgeries/Procedures: mytonic disturphy Respiratory Surgical History: Reports: None Other Respiratory Surgeries/Procedures: aspirated while have surgery GI Surgical History: Reports: Cholecystectomy, EGD, Other (See Below) Other GI Surgeries/Procedures: EGD x4 Female Surgical History: Reports: Tubal Ligation Endocrine Surgical History: Reports: None Neurological Surgical History: Reports: None Musculoskeletal Surgical History: Reports: None Oncologic Surgical History: Reports: None Dermatological Surgical History: Reports: None Social & Family History - Family History Family Medical History: No Pertinent Family History - Caffeine Use Caffeine Use: Reports: None - Recreational Drug Use Recreational Drug Type: Reports: Marijuana/Hashish Review of Systems - Review of Systems Review Of Systems: See Below (see dictation) ED EXAM, GENERAL - Physical Exam Exam: See Below (see dictation) ED TRAUMA EXTREMITY PROCEDURES - Splinting Left Lower Extremity Splint Site: Left knee Pre-Procedure NV Status: Normal Post-Procedure NV Status: Normal Splint Design: Knee Immobilizer Applied & Form Fitted By: Nurse Provider Post-Splint Application NV Check: NV Status Normal, Good Position Complications: No Progress/Comments: Splint: Knee immobilizer Indication: Pain How will this benefit patient: immobilization Duration: 7 days Course - Vital Signs Last Recorded V/S: Last Vital Signs Temp 97.8 F 06/30/21 04:53 Pulse 103 H 06/30/21 04:53 Resp 18 06/30/21 04:53 BP 133/76 06/30/21 04:53 Pulse Ox 98 06/30/21 04:53 - Orders/Labs/Meds Orders: Active Orders 24 hr Category Date Time Status Immobilizer [RC] ASDIRECTED Care 06/30/21 05:08 Ordered DME for Discharge [COMM] Stat Oth 06/30/21 05:09 Ordered Meds: Medications Discontinued Medications Generic Name Dose Route Start Last Admin Trade Name Freq PRN Reason Stop Dose Admin Oxycodone/Acetaminophen 1 tab 06/30/21 05:06 06/30/21 05:22 Acetaminophen/Oxycodone 325-5 Mg Tab PO 06/30/21 05:07 1 tab ONETIME ONE Administration - Re-Assessments/Exams Free Text/Narrative Re-Assessment/Exam: 06/30/21 05:38 After knee immobilizer in the ER, the patient improved and is currently stable for discharge. I performed a repeat exam and did not appreciate new abnormal findings. Patient exhibits normal vital signs. I advised the patient to return to the ER for reevaluation if symptoms worsened, including fever, worsening pain, or any other worrisome symptoms. I instructed the patient to follow up with their PCP within 2-3 days. MEDICAL DECISION MAKING: This patient was evaluated during the COVID-19 pandemic where resources and capacity might be affected. I reviewed the patients past medical records, lab and radiographic findings. I discussed the case with the patient. My differential diagnosis included: Fracture, dislocation, contusion. The affected extremity demonstrated good distal perfusion, warm, pink, cap refill <2 seconds, compartments soft, pulses equal in both extremities. Patient understands to return immediately for worsening pain, swelling, fever, numbness/tingling or other concerns and to f/u with PMD if no improvement of symptoms within 3-5 days. Departure - Departure Time of Disposition: 05:36 Disposition: Home, Self-Care 01 Condition: Good Clinical Impression: Contusion of knee - Discharge Information *PRESCRIPTION DRUG MONITORING PROGRAM REVIEWED*: Not Applicable *COPY OF PRESCRIPTION DRUG MONITORING REPORT IN PATIENT AGUSTIN: Not Applicable Prescriptions: Naproxen [Naprosyn] 500 mg PO Q12HR #30 tab Instructions: Cast or Splint Care, Adult, [id number], Contusion, [id number] Referrals: PCP,None [Primary Care Provider] - Forms: ED Department Discharge Additional Instructions: The need for follow-up, as well as the timing and circumstances, are variable depending upon the specifics of your emergency department visit. If you don't have a primary care physician on staff, we will provide you with a referral. We always advise you to contact your personal physician following an emergency department visit to inform them of the circumstance of the visit and for follow-up with them and/or the need for any referrals to a consulting specialist. The emergency department will also refer you to a specialist when appropriate. This referral assures that you have the opportunity for follow-up care with a specialist. All of these measure are taken in an effort to provide you with optimal care, which includes your follow-up. Under all circumstances we always encourage you to contact your private physician who remains a resource for coordinating your care. When calling for follow-up care, please make the office aware that this follow-up is from your recent emergency room visit. If for any reason you are refused follow-up, please contact the [facility] Emergency Department at and asked to speak to the emergency department charge nurse. If you do not have a primary care doctor, please follow up with the clinics below within 3-5 days. Rehabilitation Services at [facility] (Physical Therapy, Occupational Therapy, Speech Therapy) Professional Building [address] [place] [address], [address] [place] [address] . Sepsis Event Note (ED) - Evaluation Sepsis Screening Result: No Definite Risk - Focused Exam Vital Signs: Vital Signs Temp Pulse Resp BP Pulse Ox 06/30/21 04:53 97.8 F 103 H 18 133/76 98 - My Orders Last 24 Hours: My Active Orders 06/30/21 05:08 Immobilizer [RC] ASDIRECTED 06/30/21 05:09 DME for Discharge [COMM] Stat - Assessment/Plan Last 24 Hours: My Active Orders 06/30/21 05:08 Immobilizer [RC] ASDIRECTED 06/30/21 05:09 DME for Discharge [COMM] Stat
--- NOTE | 2021-06-30 05:28 | CR ---
INDICATION: Knee pain following fall TECHNIQUE: Knee radiograph 3 views left COMPARISON: None FINDINGS: Bone: No acute fractures or aggressive bone lesions are identified. Joint: The joint spaces of the medial, lateral, and patellofemoral compartments are unremarkable. No significant knee effusion is seen. Soft tissue: Varicose veins are noted in the medial thigh and calf. No radiopaque foreign bodies are seen. IMPRESSION: 1. No acute osseous injuries or abnormalities are noted. Dictated by: Jesus Harman MD @ 06/30/2021 05:27:51 (Electronically Signed)
== END 2021-06-30 05:55 | disposition home or self-care (01) ==
LOC: MW.ED 04:47
DX: S80.02XA Contusion of left knee, initial encounter (principal); K21.9 Gastro-esophageal reflux disease without esophagitis; E78.00 Pure hypercholesterolemia, unspecified; E66.9 Obesity, unspecified; Z68.41 Body mass index [BMI] 40.0-44.9, adult; Z91.048 Other nonmedicinal substance allergy status; Z79.899 Other long term (current) drug therapy; W01.0XXA Fall on same level from slipping, tripping and stumbling without subsequent striking against object, initial encounter; Y92.009 Unspecified place in unspecified non-institutional (private) residence as the place of occurrence of the external cause
CPT/HCPCS: 73562; 99283; A9270

== ENCOUNTER 2021-07-24 11:47 | Inpatient (IN) | payer BC, MEDICAID ==
--- NOTE | 2021-07-24 11:50 | EDM.PDOC ---
ED HPI GENERAL MEDICAL PROBLEM - General Stated Complaint: O2 IS 93% COUGH CONGESTION Time Seen by Provider: 07/24/21 11:50 Source of Information: Reports: Patient History Limitations: Reports: No Limitations - History of Present Illness INITIAL COMMENTS - FREE TEXT/NARRATIVE: HISTORY AND PHYSICAL: History of present illness: Patient is a 35-year-old female who presents to the emergency room from the [facility] with concerns of cough and congestion x 2-3 days. Patient is diaphoretic stating she has had fever, chills, decreased appetite over the past few days. Initially had gone to the clinic, they were concerned as her oxygen was 91 to 93% on room air and recommended she come to the emergency room for evaluation. Patient states she has a history of "mild asthma" but does not use any type of inhalers at home. States she feels "wheezy" with a nonproductive cough. Patient has not been immunized for COVID-19 or influenza. Patient denies any change in vision, syncope or near syncope. Denies any chest pain, back pain, shortness of breath. Denies any abdominal pain, nausea, vomiting, diarrhea, constipation or dysuria. Has not noted any blood in urine or stool. Patient has been eating and drinking appropriately. No recent travel or sick contacts. Review of systems: As per history of present illness and below otherwise all systems reviewed and negative. Past medical history: As per history of present illness and as reviewed below otherwise noncontributory. Surgical history: As per history of present illness and as reviewed below otherwise noncontributory. Social history: See social history for further information Family history: As per history of present illness and as reviewed below otherwise noncontributory. Physical exam: General: Well developed and well nourished 35 year old female. Alert and orientated x 3. Nontoxic in appearance and in no acute distress. Vital signs are stable and have been reviewed by me. Nursing notes were reviewed. HEENT: Atraumatic, normocephalic, pupils equal and reactive bilaterally, negative for conjunctival pallor or scleral icterus, mucous membranes dry/tacky, TMs normal bilaterally, throat clear, neck supple, nontender, trachea midline. No drooling or trismus noted. No meningeal signs. No hot potato voice noted. Lungs: Fine expiratory wheezing to auscultation bilaterally. No rales or rhonchi. Chest nontender. Normal work of breathing, no accessory muscles used. Heart: S1S2, regular rate and rhythm without overt murmur, gallops, or rubs. No JVD. No peripheral edema Abdomen: Soft, nondistended, nontender. Normoactive bowel sounds. Negative for masses or costovertebral tenderness. Skin: Intact, warm, and diaphoretic. No lesions or rashes noted. Hematologic: No petechiae or purpra. Mucosa appropriate color and normal nail bed color and refill. Extremities: Atraumatic, moves all extremities per self without difficulty or deficits, negative for cords or calf pain. Neurovascular unremarkable. Neuro: Awake, alert, oriented. Cranial nerves II through XII unremarkable. Cerebellum unremarkable. Motor and sensory unremarkable throughout. Exam nonfocal. Psychiatric: Mood and affect are appropriate. Normal thought process. Answering questions appropriately. Please note that the patient was seen and evaluated during the 2019 SARS-CoV-2 novel coronavirus pandemic period. Community viral transmission is ongoing at time of this encounter and the emergency department is operating under pandemic response procedures. Medical Decision Making: Patient is a 35-year-old female who presents to the emergency room with compla ints of upper respiratory symptoms x2 days. Initially had presented to the clinic although they wanted her evaluated in the emergency department due to lower oxygen saturation. Upon arrival of the patient is diaphoretic with fever. She does have fine expiratory wheezing bilaterally. States she has "mild asthma" although was not prescribed any inhalers. Clinically does appear dehydrated, will do basic lab work and IV fluid. Current oxygen saturation is 91% on room air. Lung sounds did improve somewhat with the breathing treatment. Patient's oxygen saturations did drop to 85% on room air, she was placed on 2 L per nasal cannula. Chest x-ray shows ill-defined bilateral perihilar linear opacities could represent an infection or inflammatory process. Otherwise clear. Lab results are pending. Patient's lab work is unremarkable. We did try to wean her oxygen but she would drop to 85% on room air, requiring 3 L to be 92% at this time. We discussed admission. I have talked with the patient about today's findings, in addition to providing specific details for plan of care. Reassessment at the time of disposition demonstrates that the patient is in no acute distress. She is agreeable to remdesivir IV. Dr. Neri, hospitalist on-call has been notified of patient. He is agreeable to keeping this patient for further care and management. He is here to evaluate patient. Diagnostics: Chest x-ray, COVID/influenza Therapeutics: IV fluids, Dexamethasone, Pro-Air Impression: COVID-19 Hypoxia Definitive disposition and diagnosis as appropriate pending reevaluation and bladimir humphreys of above. - Related Data Allergies Allergy/AdvReac Type Severity Reaction Status Date / Time adhesive Allergy "skin Verified 07/24/21 11:58 comes off" Home Meds: Home Meds Gabapentin [Neurontin] 300 mg PO BID 01/22/20 [History] Omeprazole Magnesium [Prilosec Otc] 40 mg PO DAILY 04/06/20 [History] tiZANidine [Zanaflex] 2 mg PO Q8H #15 tab 04/07/20 [Rx] Naproxen [Naprosyn] 500 mg PO Q12HR #30 tab 06/30/21 [Rx] Past Medical History - Past Health History Medical/Surgical History: Denies Medical/Surgical History HEENT History: Reports: Impaired Vision Cardiovascular History: Reports: Heart Murmur, High Cholesterol Respiratory History: Reports: Asthma Other Respiratory History: "mild asthma", not on any prescribed inhalers Gastrointestinal History: Reports: GERD Genitourinary History: Reports: UTI, Recurrent EFFICIENCY ANALYST History: Reports: Musculoskeletal History: Reports: Other (See Below) Other Musculoskeletal History: mytonic muscular dystrophy Neurological History: Reports: None Other Neuro History: myotonic muscular dystrophy Psychiatric History: Reports: Anxiety, Depression Endocrine/Metabolic History: Reports: Obesity/BMI 30+ Hematologic History: Reports: None Immunologic History: Reports: None Oncologic (Cancer) History: Reports: None Dermatologic History: Reports: None - Infectious Disease History Infectious Disease History: Reports: Chicken Pox - Past Surgical History Head Surgeries/Procedures: Reports: None HEENT Surgical History: Reports: Cataract Surgery Cardiovascular Surgical History: Reports: None Other Cardiovascular Surgeries/Procedures: mytonic disturphy Respiratory Surgical History: Reports: None Other Respiratory Surgeries/Procedures: aspirated while have surgery GI Surgical History: Reports: Cholecystectomy, EGD, Other (See Below) Other GI Surgeries/Procedures: EGD x4 Female Surgical History: Reports: Tubal Ligation Endocrine Surgical History: Reports: None Neurological Surgical History: Reports: None Musculoskeletal Surgical History: Reports: None Oncologic Surgical History: Reports: None Dermatological Surgical History: Reports: None Social & Family History - Family History Family Medical History: No Pertinent Family History - Caffeine Use Caffeine Use: Reports: None ED ROS GENERAL - Review of Systems Review Of Systems: Comprehensive ROS is negative, except as noted in HPI. ED EXAM, GENERAL - Physical Exam Exam: See Below (See dictation) Course - Vital Signs Last Recorded V/S: Last Vital Signs Temp 98.0 F 07/24/21 13:35 Pulse 86 07/24/21 13:35 Resp 18 07/24/21 13:35 BP 130/68 07/24/21 13:35 Pulse Ox 92 L 07/24/21 13:35 - Orders/Labs/Meds Orders: Active Orders 24 hr Category Date Time Status Admission Status [Patient Status] [ADT] Stat ADT 07/24/21 13:44 Ordered RT Post Treatment Assessment [RC] Click to Edit Care 07/24/21 11:56 Active RT Pre-Treatment Assessment [RC] Click to Edit Care 07/24/21 11:56 Active UA RFX FRANDY AND CULT IF INDIC [URIN] Stat Lab 07/24/21 14:01 Ordered Remdesivir 200 mg Med 07/24/21 13:45 Active Sodium Chloride 0.9% [Normal Saline] 250 ml IV ONETIME Medication Orders Remdesivir 200 mg/ Sodium (Chloride) 250 mls @ 250 mls/hr IV ONETIME ONE Stop: 07/24/21 14:44 Last Admin: 07/24/21 13:59 Dose: 250 mls/hr Documented by: Labs: Laboratory Tests 07/24/21 07/24/21 07/24/21 Range/Units 11:55 12:15 12:15 WBC 5.76 (4.0-11.0) K/uL RBC 5.10 (4.30-5.90) M/uL Hgb 14.5 (12.0-16.0) g/dL Hct 45.0 (36.0-46.0) % MCV 88.2 (80.0-98.0) fL MCH 28.4 (27.0-32.0) pg MCHC 32.2 (31.0-37.0) g/dL RDW Std Deviation 46.9 (28.0-62.0) fl RDW Coeff of Anita 14 (11.0-15.0) % Plt Count 203 (150-400) K/uL MPV 10.40 (7.40-12.00) fL Neut % (Auto) 58.5 (48.0-80.0) % Lymph % (Auto) 25.3 (16.0-40.0) % [place] % (Auto) 11.5 (0.0-15.0) % Eos % (Auto) 4.5 (0.0-7.0) % Baso % (Auto) 0.2 (0.0-1.5) % Neut # (Auto) 3.4 (1.4-5.7) K/uL Lymph # (Auto) 1.5 (0.6-2.4) K/uL [place] # (Auto) 0.7 (0.0-0.8) K/uL Eos # (Auto) 0.3 (0.0-0.7) K/uL Baso # (Auto) 0.0 (0.0-0.1) K/uL Nucleated RBC % 0.0 /100WBC Nucleated RBCs # 0 K/uL Sodium 137 (136-145) mmol/L Potassium 4.1 (3.5-5.1) mmol/L Chloride 102 (98-107) mmol/L Carbon Dioxide 25.7 (21.0-32.0) mmol/L BUN 12 (7.0-18.0) mg/dL Creatinine 0.9 (0.6-1.0) mg/dL Est Cr Clr Drug Dosing 90.31 mL/min Estimated GFR (MDRD) > 60.0 ml/min Glucose 113 H (74-106) mg/dL Lactic Acid (0.4-2.0) mmol/L Calcium 9.2 (8.5-10.1) mg/dL Total Bilirubin 0.3 (0.2-1.0) mg/dL AST 47 H (15-37) IU/L ALT 56 (14-63) IU/L Alkaline Phosphatase 103 (46-116) U/L Total Protein 7.6 (6.4-8.2) g/dL Albumin 3.1 L (3.4-5.0) g/dL Globulin 4.5 H (2.6-4.0) g/dL Albumin/Globulin Ratio 0.7 L (0.9-1.6) Influenza Type A RNA NEGATIVE (NEGATIVE) Influenza Type B RNA NEGATIVE (NEGATIVE) SARS-CoV-2 RNA (SUNDEEP) POSITIVE H (NEGATIVE) 07/24/21 Range/Units 12:15 WBC (4.0-11.0) K/uL RBC (4.30-5.90) M/uL Hgb (12.0-16.0) g/dL Hct (36.0-46.0) % MCV (80.0-98.0) fL MCH (27.0-32.0) pg MCHC (31.0-37.0) g/dL RDW Std Deviation (28.0-62.0) fl RDW Coeff of Anita (11.0-15.0) % Plt Count (150-400) K/uL MPV (7.40-12.00) fL Neut % (Auto) (48.0-80.0) % Lymph % (Auto) (16.0-40.0) % [place] % (Auto) (0.0-15.0) % Eos % (Auto) (0.0-7.0) % Baso % (Auto) (0.0-1.5) % Neut # (Auto) (1.4-5.7) K/uL Lymph # (Auto) (0.6-2.4) K/uL [place] # (Auto) (0.0-0.8) K/uL Eos # (Auto) (0.0-0.7) K/uL Baso # (Auto) (0.0-0.1) K/uL Nucleated RBC % /100WBC Nucleated RBCs # K/uL Sodium (136-145) mmol/L Potassium (3.5-5.1) mmol/L Chloride (98-107) mmol/L Carbon Dioxide (21.0-32.0) mmol/L BUN (7.0-18.0) mg/dL Creatinine (0.6-1.0) mg/dL Est Cr Clr Drug Dosing mL/min Estimated GFR (MDRD) ml/min Glucose (74-106) mg/dL Lactic Acid 1.0 (0.4-2.0) mmol/L Calcium (8.5-10.1) mg/dL Total Bilirubin (0.2-1.0) mg/dL AST (15-37) IU/L ALT (14-63) IU/L Alkaline Phosphatase (46-116) U/L Total Protein (6.4-8.2) g/dL Albumin (3.4-5.0) g/dL Globulin (2.6-4.0) g/dL Albumin/Globulin Ratio (0.9-1.6) Influenza Type A RNA (NEGATIVE) Influenza Type B RNA (NEGATIVE) SARS-CoV-2 RNA (SUNDEEP) (NEGATIVE) Meds: Medications Generic Name Dose Route Start Last Admin Trade Name Freq PRN Reason Stop Dose Admin Remdesivir 200 mg/ Sodium 250 mls @ 250 mls/hr 07/24/21 13:45 07/24/21 13:59 Chloride IV 07/24/21 14:44 250 mls/hr ONETIME ONE Administration Discontinued Medications Generic Name Dose Route Start Last Admin Trade Name Freq PRN Reason Stop Dose Admin Albuterol 2 gm 07/24/21 11:56 07/24/21 12:13 Albuterol 8 Gm Inhaler INH 07/24/21 11:57 8 gm ONETIME ONE Administration Dexamethasone 6 mg 07/24/21 11:56 07/24/21 12:13 Dexamethasone 10 Mg/Ml Sdv IVPUSH 07/24/21 11:57 6 mg ONETIME ONE Administration Sodium Chloride 1,000 mls @ 999 mls/hr 07/24/21 11:56 07/24/21 12:12 Normal Saline IV 07/24/21 12:56 999 mls/hr STAT ONE Administration Ketorolac Tromethamine 30 mg 07/24/21 11:57 07/24/21 12:12 Ketorolac 30 Mg/Ml Sdv IVPUSH 07/24/21 11:58 30 mg ONETIME ONE Administration Departure - Departure Time of Disposition: 14:02 Disposition: Admitted As Inpatient 65 Clinical Impression: COVID-19, Hypoxia - Discharge Information Referrals: Emilia Anaya NP [Primary Care Provider] - Sepsis Event Note (ED) - Focused Exam Vital Signs: Vital Signs Temp Pulse Resp BP Pulse Ox 07/24/21 13:35 98.0 F 86 18 130/68 92 L 07/24/21 12:27 92 L 07/24/21 12:22 85 L 07/24/21 11:58 99.0 F 87 18 129/96 H 91 L - My Orders Last 24 Hours: My Active Orders 07/24/21 11:56 RT Post Treatment Assessment [RC] Click to Edit RT Pre-Treatment Assessment [RC] Click to Edit 07/24/21 13:44 Admission Status [Patient Status] [ADT] Stat 07/24/21 13:45 Remdesivir 200 mg Sodium Chloride 0.9% [Normal Saline] 250 ml IV ONETIME 07/24/21 14:01 UA RFX FRANDY AND CULT IF INDIC [URIN] Stat - Assessment/Plan Last 24 Hours: My Active Orders 07/24/21 11:56 RT Post Treatment Assessment [RC] Click to Edit RT Pre-Treatment Assessment [RC] Click to Edit 07/24/21 13:44 Admission Status [Patient Status] [ADT] Stat 07/24/21 13:45 Remdesivir 200 mg Sodium Chloride 0.9% [Normal Saline] 250 ml IV ONETIME 07/24/21 14:01 UA RFX FRANDY AND CULT IF INDIC [URIN] Stat
[2021-07-24] MEDS ORDERED: Sodium Chloride 0.9% 1,000 ML IV ONE (11:56)
[2021-07-24] MEDS ORDERED: Dexamethasone 10 MG/ML SDV IVPUSH ONE (11:56)
[2021-07-24] MEDS ORDERED: Albuterol 8 GM Inhaler INH ONE (11:56)
[2021-07-24] MEDS ORDERED: Ketorolac 30 MG/ML SDV IVPUSH ONE (11:57)
--- NOTE | 2021-07-24 12:43 | CR ---
Indication: Cough. Technique: Chest 1 view. Comparison: 06/25/2015. Findings/Impression: Cardiovascular and mediastinum: Heart size and vasculature are normal in caliber and appearance. Lungs and pleural space: Ill-defined bilateral perihilar linear opacities could represent an infectious or inflammatory process. Lungs and pleural spaces otherwise clear. Bones and soft tissues: No acute findings. Dictated by Neal Alamo MD @ 07/24/2021 12:41:48 PM (Electronically Signed)
[2021-07-24 12:51] LABS: CORONAVIRUS COVID-19 NAA POSITIVE (NEGATIVE); INFLUENZA A NAA NEGATIVE (NEGATIVE); INFLUENZA B NAA NEGATIVE (NEGATIVE)
[2021-07-24 13:26] LABS: BLOOD UREA NITROGEN,BUN 12 mg/dL (7.0-18.0); CARBON DIOXIDE,CO2 25.7 mmol/L (21.0-32.0); CHLORIDE,CL 102 mmol/L (98-107); GLUCOSE RANDOM 113 mg/dL (74-106); POTASSIUM,K 4.1 mmol/L (3.5-5.1); SODIUM,NA 137 mmol/L (136-145)
[2021-07-24] MEDS ORDERED: REMDESIVIR 200 MG in Sodium Chloride 0.9% 250 ML IV ONE ×2 (13:39→13:45)
[2021-07-24] MEDS ORDERED: Acetaminophen 325 MG Tab PO PRN (14:10)
[2021-07-24] MEDS ORDERED: Benzonatate 100 MG Cap PO PRN (14:12)
--- NOTE | 2021-07-24 14:20 | PCM.HP.2 ---
H&P History of Present Illness - General Date of Service: 07/24/21 Admit Problem/Dx: Admission Diagnosis/Problem Admission Diagnosis/Problem Hypoxia - History of Present Illness Initial Comments - Free Text/Narative: 35 yo female with pmh of myotonic muscular dystrophy who presents with three day history of fevers, myalgias, cough and shortness of breath. Patient has not been vaccinated for COVID. She was notted to by hypoxic in the mid 80s requiring 2 L NC. CXR reported bilateral infiltrates. - Related Data Allergies/Adverse Reactions: Allergies Allergy/AdvReac Type Severity Reaction Status Date / Time adhesive Allergy "skin Verified 07/24/21 11:58 comes off" Home Medications: Home Meds Gabapentin [Neurontin] 300 mg PO BID 01/22/20 [History] Omeprazole Magnesium [Prilosec Otc] 40 mg PO DAILY 04/06/20 [History] tiZANidine [Zanaflex] 2 mg PO Q8H #15 tab 04/07/20 [Rx] Naproxen [Naprosyn] 500 mg PO Q12HR #30 tab 06/30/21 [Rx] Past Medical History - Past Health History Medical/Surgical History: Denies Medical/Surgical History HEENT History: Reports: Impaired Vision Cardiovascular History: Reports: Heart Murmur, High Cholesterol Respiratory History: Reports: Asthma Other Respiratory History: "mild asthma", not on any prescribed inhalers Gastrointestinal History: Reports: GERD Genitourinary History: Reports: UTI, Recurrent [employer] PLANS History: Reports: Musculoskeletal History: Reports: Other (See Below) Other Musculoskeletal History: mytonic muscular dystrophy Neurological History: Reports: None Other Neuro History: myotonic muscular dystrophy Psychiatric History: Reports: Anxiety, Depression Endocrine/Metabolic History: Reports: Obesity/BMI 30+ Hematologic History: Reports: None Immunologic History: Reports: None Oncologic (Cancer) History: Reports: None Dermatologic History: Reports: None - Infectious Disease History Infectious Disease History: Reports: Chicken Pox - Past Surgical History Head Surgeries/Procedures: Reports: None HEENT Surgical History: Reports: Cataract Surgery Cardiovascular Surgical History: Reports: None Other Cardiovascular Surgeries/Procedures: mytonic disturphy Respiratory Surgical History: Reports: None Other Respiratory Surgeries/Procedures: aspirated while have surgery GI Surgical History: Reports: Cholecystectomy, EGD, Other (See Below) Other GI Surgeries/Procedures: EGD x4 Female Surgical History: Reports: Tubal Ligation Endocrine Surgical History: Reports: None Neurological Surgical History: Reports: None Musculoskeletal Surgical History: Reports: None Oncologic Surgical History: Reports: None Dermatological Surgical History: Reports: None Social & Family History - Family History Family Medical History: No Pertinent Family History - Caffeine Use Caffeine Use: Reports: None - Recreational Drug Use Recreational Drug Type: Reports: Marijuana/Hashish H&P Review of Systems - Review of Systems: Review Of Systems: Comprehensive ROS is negative, except as noted in HPI. Exam - Exam Exam: See Below - Vital Signs Vital Signs: Last Vital Signs Temp 36.7 C 07/24/21 13:35 Pulse 86 07/24/21 13:35 Resp 18 07/24/21 13:35 BP 130/68 07/24/21 13:35 Pulse Ox 92 L 07/24/21 13:35 Weight: 130.181 kg - Exam General: Alert, Oriented HEENT: Mucosa Moist & [place] Lungs: Normal Respiratory Effort, Rhonchi Cardiovascular: Regular Rate, Regular Rhythm GI/Abdominal Exam: Normal Bowel Sounds, Soft, Non-Tender Extremities: Non-Tender, No Pedal Edema Skin: Warm, Dry, Intact Neurological: No: Focal Deficit - Patient Data Lab Results Last 24 hrs: Laboratory Results - last 24 hr 07/24/21 07/24/21 07/24/21 Range/Units 11:55 12:15 12:15 WBC 5.76 (4.0-11.0) K/uL RBC 5.10 (4.30-5.90) M/uL Hgb 14.5 (12.0-16.0) g/dL Hct 45.0 (36.0-46.0) % MCV 88.2 (80.0-98.0) fL MCH 28.4 (27.0-32.0) pg MCHC 32.2 (31.0-37.0) g/dL RDW Std Deviation 46.9 (28.0-62.0) fl RDW Coeff of Anita 14 (11.0-15.0) % Plt Count 203 (150-400) K/uL MPV 10.40 (7.40-12.00) fL Neut % (Auto) 58.5 (48.0-80.0) % Lymph % (Auto) 25.3 (16.0-40.0) % [place] % (Auto) 11.5 (0.0-15.0) % Eos % (Auto) 4.5 (0.0-7.0) % Baso % (Auto) 0.2 (0.0-1.5) % Neut # (Auto) 3.4 (1.4-5.7) K/uL Lymph # (Auto) 1.5 (0.6-2.4) K/uL [place] # (Auto) 0.7 (0.0-0.8) K/uL Eos # (Auto) 0.3 (0.0-0.7) K/uL Baso # (Auto) 0.0 (0.0-0.1) K/uL Nucleated RBC % 0.0 /100WBC Nucleated RBCs # 0 K/uL Sodium 137 (136-145) mmol/L Potassium 4.1 (3.5-5.1) mmol/L Chloride 102 (98-107) mmol/L Carbon Dioxide 25.7 (21.0-32.0) mmol/L BUN 12 (7.0-18.0) mg/dL Creatinine 0.9 (0.6-1.0) mg/dL Est Cr Clr Drug Dosing 90.31 mL/min Estimated GFR (MDRD) > 60.0 ml/min Glucose 113 H (74-106) mg/dL Lactic Acid (0.4-2.0) mmol/L Calcium 9.2 (8.5-10.1) mg/dL Total Bilirubin 0.3 (0.2-1.0) mg/dL AST 47 H (15-37) IU/L ALT 56 (14-63) IU/L Alkaline Phosphatase 103 (46-116) U/L Total Protein 7.6 (6.4-8.2) g/dL Albumin 3.1 L (3.4-5.0) g/dL Globulin 4.5 H (2.6-4.0) g/dL Albumin/Globulin Ratio 0.7 L (0.9-1.6) Influenza Type A RNA NEGATIVE (NEGATIVE) Influenza Type B RNA NEGATIVE (NEGATIVE) SARS-CoV-2 RNA (SUNDEEP) POSITIVE H (NEGATIVE) 07/24/21 Range/Units 12:15 WBC (4.0-11.0) K/uL RBC (4.30-5.90) M/uL Hgb (12.0-16.0) g/dL Hct (36.0-46.0) % MCV (80.0-98.0) fL MCH (27.0-32.0) pg MCHC (31.0-37.0) g/dL RDW Std Deviation (28.0-62.0) fl RDW Coeff of Anita (11.0-15.0) % Plt Count (150-400) K/uL MPV (7.40-12.00) fL Neut % (Auto) (48.0-80.0) % Lymph % (Auto) (16.0-40.0) % [place] % (Auto) (0.0-15.0) % Eos % (Auto) (0.0-7.0) % Baso % (Auto) (0.0-1.5) % Neut # (Auto) (1.4-5.7) K/uL Lymph # (Auto) (0.6-2.4) K/uL [place] # (Auto) (0.0-0.8) K/uL Eos # (Auto) (0.0-0.7) K/uL Baso # (Auto) (0.0-0.1) K/uL Nucleated RBC % /100WBC Nucleated RBCs # K/uL Sodium (136-145) mmol/L Potassium (3.5-5.1) mmol/L Chloride (98-107) mmol/L Carbon Dioxide (21.0-32.0) mmol/L BUN (7.0-18.0) mg/dL Creatinine (0.6-1.0) mg/dL Est Cr Clr Drug Dosing mL/min Estimated GFR (MDRD) ml/min Glucose (74-106) mg/dL Lactic Acid 1.0 (0.4-2.0) mmol/L Calcium (8.5-10.1) mg/dL Total Bilirubin (0.2-1.0) mg/dL AST (15-37) IU/L ALT (14-63) IU/L Alkaline Phosphatase (46-116) U/L Total Protein (6.4-8.2) g/dL Albumin (3.4-5.0) g/dL Globulin (2.6-4.0) g/dL Albumin/Globulin Ratio (0.9-1.6) Influenza Type A RNA (NEGATIVE) Influenza Type B RNA (NEGATIVE) SARS-CoV-2 RNA (SUNDEEP) (NEGATIVE) Result Diagrams: 07/24/21 12:15 07/24/21 12:15 Sepsis Event Note - Evaluation Sepsis Screening Result: No Definite Risk - Focused Exam Vital Signs: Vital Signs Temp Pulse Resp BP Pulse Ox 07/24/21 13:35 36.7 C 86 18 130/68 92 L 07/24/21 12:27 92 L 07/24/21 12:22 85 L 07/24/21 11:58 37.2 C 87 18 129/96 H 91 L - Problem List (1) COVID-19 SNOMED Code(s): 597056545 ICD Code: U07.1 - COVID-19 Status: Acute Current Visit: Yes (2) Hypoxia SNOMED Code(s): 014998856 ICD Code: R09.02 - HYPOXEMIA Status: Acute Current Visit: Yes Problem List Initiated/Reviewed/Updated: Yes Orders Last 24hrs: Active Orders 24 hr Category Date Time Status Admission Status [Patient Status] [ADT] Stat ADT 07/24/21 13:44 Active Antiembolic Devices [RC] PER UNIT ROUTINE Care 07/24/21 14:11 Ordered Oxygen Therapy [RC] PRN Care 07/24/21 14:10 Ordered RT Post Treatment Assessment [RC] Click to Edit Care 07/24/21 11:56 Active RT Pre-Treatment Assessment [RC] Click to Edit Care 07/24/21 11:56 Active Up ad Mya [RC] ASDIRECTED Care 07/24/21 14:10 Ordered VTE/DVT Education [RC] PER UNIT ROUTINE Care 07/24/21 14:10 Ordered Vital Signs [RC] Q4H Care 07/24/21 14:10 Ordered Regular Diet [DIET] Diet 07/24/21 Breakfast Ordered CBC WITH AUTO DIFF [HEME] AM Lab 07/25/21 05:11 Ordered CBC WITH AUTO DIFF [HEME] AM Lab 07/26/21 05:11 Ordered CBC WITH AUTO DIFF [HEME] AM Lab 07/27/21 05:11 Ordered CBC WITH AUTO DIFF [HEME] AM Lab 07/28/21 05:11 Ordered CBC WITH AUTO DIFF [HEME] AM Lab 07/29/21 05:11 Ordered COMPREHENSIVE METABOLIC PN,CMP [CHEM] AM Lab 07/25/21 05:11 Ordered COMPREHENSIVE METABOLIC PN,CMP [CHEM] AM Lab 07/26/21 05:11 Ordered COMPREHENSIVE METABOLIC PN,CMP [CHEM] AM Lab 07/27/21 05:11 Ordered COMPREHENSIVE METABOLIC PN,CMP [CHEM] AM Lab 07/28/21 05:11 Ordered COMPREHENSIVE METABOLIC PN,CMP [CHEM] AM Lab 07/29/21 05:11 Ordered UA RFX FRANDY AND CULT IF INDIC [URIN] Stat Lab 07/24/21 14:01 Ordered Acetaminophen [TylenoL] Med 07/24/21 14:10 Ordered 650 mg PO Q4H PRN Albuterol [Ventolin HFA] Med 07/24/21 14:12 Ordered 1 gm INH Q4H PRN Benzonatate [Tessalon Perles] Med 07/24/21 14:12 Ordered 100 mg PO Q6H PRN Gabapentin [Neurontin] Med 07/24/21 21:00 Ordered 300 mg PO BID Omeprazole Magnesium [Prilosec Otc] Med 07/25/21 09:00 Ordered 40 mg PO DAILY Remdesivir 100 mg Med 07/25/21 14:15 Ordered Sodium Chloride 0.9% [Normal Saline AdvBag] 100 ml IV Q24H Remdesivir 200 mg Med 07/24/21 13:45 Active Sodium Chloride 0.9% [Normal Saline] 250 ml IV ONETIME dexAMETHasone Med 07/25/21 09:00 Ordered 6 mg PO DAILY Sequential Compression Device [OM.PC] Per Unit Routine Oth 07/24/21 14:10 Ordered Resuscitation Status Routine Resus Stat 07/24/21 14:10 Ordered Medication Orders Acetaminophen (Acetaminophen 325 Mg Tab) 650 mg PO Q4H PRN PRN Reason: Pain (Mild 1-3)/fever Albuterol (Albuterol 8 Gm Inhaler) 1 gm INH Q4H PRN PRN Reason: Wheezing Dexamethasone (Dexamethasone 4 Mg Tab) 6 mg PO DAILY [facility] Gabapentin (Gabapentin 300 Mg Cap) 300 mg PO BID [facility] Remdesivir 200 mg/ Sodium (Chloride) 250 mls @ 250 mls/hr IV ONETIME ONE Stop: 07/24/21 14:44 Last Admin: 07/24/21 13:59 Dose: 250 mls/hr Documented by: SABRINA Remdesivir 100 mg/ Sodium (Chloride) 100 mls @ 100 mls/hr IV Q24H [facility] Stop: 07/28/21 15:14 Non-Formulary Medication (Omeprazole Magnesium [Prilosec Otc]) 40 mg PO DAILY [facility] Assessment/Plan Comment:: 35 yo female admitted with COVID-19 with hypoxia Hypoxia: 3 L NC COVID-19: remdesivir, dexamethasone izaiah
[2021-07-24] MEDS: Enoxaparin 40 MG/0.4 ML Syringe SUBCUT SCH ×2 (14:29→20:46)
[2021-07-24] MEDS ORDERED: Gabapentin 300 MG Cap PO SCH (21:00)
[2021-07-25] MEDS: guaiFENesin/Dextromethorphan 100-10 MG/5 ML Soln 10 ML Cup PO PRN ×3 (00:59→20:38)
[2021-07-25 07:38] LABS: BLOOD UREA NITROGEN,BUN 15 mg/dL (7.0-18.0); CARBON DIOXIDE,CO2 28.8 mmol/L (21.0-32.0); CHLORIDE,CL 104 mmol/L (98-107); GLUCOSE RANDOM 129 mg/dL (74-106); POTASSIUM,K 5.3 mmol/L (3.5-5.1); SODIUM,NA 139 mmol/L (136-145)
[2021-07-25] MEDS: Enoxaparin 40 MG/0.4 ML Syringe SUBCUT SCH ×2 (09:01→20:26)
[2021-07-25] MEDS: Pantoprazole 40 MG/10 ML Syringe IVPUSH SCH (09:02)
[2021-07-25] MEDS: Dexamethasone 4 MG Tab PO SCH (09:03)
[2021-07-25] MEDS: Albuterol 8 GM Inhaler INH PRN (09:17)
[2021-07-25] MEDS ORDERED: Omeprazole 20 MG Cap.CR PO SCH (11:30)
[2021-07-25] MEDS: REMDESIVIR 100 MG in Sodium Chloride 0.9% 100 ML IV SCH (14:03)
--- NOTE | 2021-07-25 16:51 | PCM.PN ---
- General Info Date of Service: 07/25/21 Subjective Update: The patient is a 35-year-old female, who has a significant past medical history of muscular dystrophy, who is on day 2 of service, and was admitted to the medical floor due to COVID-19 pneumonia and is also suffering from chronic reflux. Upon interview with the patient today she admits that her shortness of breath has not improved since admission. She has a cough which is productive of clear sputum devoid of any blood or mucus. She feels extremely short of breath upon exertion but does not require oxygen when she is at rest. She is also complaining of acid regurgitation which is bothersome. She is on omeprazole at home and was taking that while in hospital but had to have additional PPI treatment with IV pantoprazole added to her regimen today. She denies chest pain, palpitations, nausea, vomiting, fever, chills, or any issues with urination and/or defecation. She has no other health concerns at this time. - Review of Systems General: Reports: Weakness, Fatigue HEENT: Denies: Headaches, Sore Throat Pulmonary: Reports: Shortness of Breath, Cough, Sputum Cardiovascular: Denies: Chest Pain, Palpitations Gastrointestinal: Reports: Other (Reflux). Denies: Abdominal Pain - Patient Data Vitals - Most Recent: Last Vital Signs Temp 96.2 F L 07/25/21 15:53 Pulse 76 07/25/21 15:53 Resp 20 07/25/21 15:53 BP 123/63 07/25/21 15:53 Pulse Ox 91 L 07/25/21 15:53 Weight - Most Recent: 292 lb Lab Results Last 24 Hours: Laboratory Results - last 24 hr 07/25/21 07/25/21 Range/Units 05:22 05:22 WBC 5.84 (4.0-11.0) K/uL RBC 4.91 (4.30-5.90) M/uL Hgb 13.7 (12.0-16.0) g/dL Hct 43.7 (36.0-46.0) % MCV 89.0 (80.0-98.0) fL MCH 27.9 (27.0-32.0) pg MCHC 31.4 (31.0-37.0) g/dL RDW Std Deviation 47.7 (28.0-62.0) fl RDW Coeff of Anita 15 (11.0-15.0) % Plt Count 235 (150-400) K/uL MPV 10.90 (7.40-12.00) fL Neut % (Auto) 66.8 (48.0-80.0) % Lymph % (Auto) 22.9 (16.0-40.0) % [place] % (Auto) 9.9 (0.0-15.0) % Eos % (Auto) 0.2 (0.0-7.0) % Baso % (Auto) 0.2 (0.0-1.5) % Neut # (Auto) 3.9 (1.4-5.7) K/uL Lymph # (Auto) 1.3 (0.6-2.4) K/uL [place] # (Auto) 0.6 (0.0-0.8) K/uL Eos # (Auto) 0.0 (0.0-0.7) K/uL Baso # (Auto) 0.0 (0.0-0.1) K/uL Nucleated RBC % 0.0 /100WBC Nucleated RBCs # 0 K/uL Sodium 139 (136-145) mmol/L Potassium 5.3 H (3.5-5.1) mmol/L Chloride 104 (98-107) mmol/L Carbon Dioxide 28.8 (21.0-32.0) mmol/L BUN 15 (7.0-18.0) mg/dL Creatinine 0.8 (0.6-1.0) mg/dL Est Cr Clr Drug Dosing 101.60 mL/min Estimated GFR (MDRD) > 60.0 ml/min Glucose 129 H (74-106) mg/dL Calcium 9.5 (8.5-10.1) mg/dL Total Bilirubin 0.2 (0.2-1.0) mg/dL AST 31 (15-37) IU/L ALT 43 (14-63) IU/L Alkaline Phosphatase 96 (46-116) U/L Total Protein 7.4 (6.4-8.2) g/dL Albumin 3.0 L (3.4-5.0) g/dL Globulin 4.4 H (2.6-4.0) g/dL Albumin/Globulin Ratio 0.7 L (0.9-1.6) Med Orders - Current: Current Medications Acetaminophen (Acetaminophen 325 Mg Tab) 650 mg PO Q4H PRN PRN Reason: Pain (Mild 1-3)/fever Albuterol (Albuterol 8 Gm Inhaler) 1 gm INH Q4H PRN PRN Reason: Wheezing Last Admin: 07/25/21 09:17 Dose: 2 puff Documented by: Benzonatate (Benzonatate 100 Mg Cap) 100 mg PO Q6H PRN PRN Reason: Cough Last Admin: 07/24/21 20:47 Dose: 100 mg Documented by: Dexamethasone (Dexamethasone 4 Mg Tab) 6 mg PO DAILY [facility] Last Admin: 07/25/21 09:03 Dose: 6 mg Documented by: Enoxaparin Sodium (Enoxaparin 40 Mg/0.4 Ml Syringe) 40 mg SUBCUT Q12HR [facility] Last Admin: 07/25/21 09:01 Dose: 40 mg Documented by: Gabapentin (Gabapentin 300 Mg Cap) 900 mg PO BEDTIME [facility] Guaifenesin/Dextromethorphan (Guaifenesin/Dextromethorphan 100-10 Mg/5 Ml Soln 10 Ml Cup) 10 ml PO Q6H PRN PRN Reason: Cough Last Admin: 07/25/21 09:17 Dose: 10 ml Documented by: Remdesivir 100 mg/ Sodium (Chloride) 100 mls @ 100 mls/hr IV Q24H [facility] Stop: 07/28/21 15:14 Last Admin: 07/25/21 14:03 Dose: 100 mls/hr Documented by: Pantoprazole Sodium (Pantoprazole 40 Mg/10 Ml Syringe) 40 mg IVPUSH Q24H [facility] Last Admin: 07/25/21 09:02 Dose: 40 mg Documented by: Discontinued Medications Albuterol (Albuterol 8 Gm Inhaler) 2 gm INH ONETIME ONE Stop: 07/24/21 11:57 Last Admin: 07/24/21 12:13 Dose: 8 gm Documented by: Dexamethasone (Dexamethasone 10 Mg/Ml Sdv) 6 mg IVPUSH ONETIME ONE Stop: 07/24/21 11:57 Last Admin: 07/24/21 12:13 Dose: 6 mg Documented by: Gabapentin (Gabapentin 300 Mg Cap) 300 mg PO BID [facility] Last Admin: 07/24/21 20:46 Dose: 300 mg Documented by: Sodium Chloride (Normal Saline) 1,000 mls @ 999 mls/hr IV STAT ONE Stop: 07/24/21 12:56 Last Admin: 07/24/21 12:12 Dose: 999 mls/hr Documented by: Remdesivir 200 mg/ Sodium (Chloride) 250 mls @ 250 mls/hr IV ONETIME ONE Stop: 07/24/21 14:44 Last Admin: 07/24/21 13:59 Dose: 250 mls/hr Documented by: Ketorolac Tromethamine (Ketorolac 30 Mg/Ml Sdv) 30 mg IVPUSH ONETIME ONE Stop: 07/24/21 11:58 Last Admin: 07/24/21 12:12 Dose: 30 mg Documented by: - Exam General: Alert, Oriented, Cooperative HEENT: No: Mucous Membr. Moist/[place] Neck: Trachea Midline Lungs: Wheezing Cardiovascular: Regular Rate, Regular Rhythm, No Murmurs GI/Abdominal Exam: Normal Bowel Sounds, Soft, Non-Tender - Patient Data Lab Results Last 24 hrs: Laboratory Results - last 24 hr 07/25/21 07/25/21 Range/Units 05:22 05:22 WBC 5.84 (4.0-11.0) K/uL RBC 4.91 (4.30-5.90) M/uL Hgb 13.7 (12.0-16.0) g/dL Hct 43.7 (36.0-46.0) % MCV 89.0 (80.0-98.0) fL MCH 27.9 (27.0-32.0) pg MCHC 31.4 (31.0-37.0) g/dL RDW Std Deviation 47.7 (28.0-62.0) fl RDW Coeff of Anita 15 (11.0-15.0) % Plt Count 235 (150-400) K/uL MPV 10.90 (7.40-12.00) fL Neut % (Auto) 66.8 (48.0-80.0) % Lymph % (Auto) 22.9 (16.0-40.0) % [place] % (Auto) 9.9 (0.0-15.0) % Eos % (Auto) 0.2 (0.0-7.0) % Baso % (Auto) 0.2 (0.0-1.5) % Neut # (Auto) 3.9 (1.4-5.7) K/uL Lymph # (Auto) 1.3 (0.6-2.4) K/uL [place] # (Auto) 0.6 (0.0-0.8) K/uL Eos # (Auto) 0.0 (0.0-0.7) K/uL Baso # (Auto) 0.0 (0.0-0.1) K/uL Nucleated RBC % 0.0 /100WBC Nucleated RBCs # 0 K/uL Sodium 139 (136-145) mmol/L Potassium 5.3 H (3.5-5.1) mmol/L Chloride 104 (98-107) mmol/L Carbon Dioxide 28.8 (21.0-32.0) mmol/L BUN 15 (7.0-18.0) mg/dL Creatinine 0.8 (0.6-1.0) mg/dL Est Cr Clr Drug Dosing 101.60 mL/min Estimated GFR (MDRD) > 60.0 ml/min Glucose 129 H (74-106) mg/dL Calcium 9.5 (8.5-10.1) mg/dL Total Bilirubin 0.2 (0.2-1.0) mg/dL AST 31 (15-37) IU/L ALT 43 (14-63) IU/L Alkaline Phosphatase 96 (46-116) U/L Total Protein 7.4 (6.4-8.2) g/dL Albumin 3.0 L (3.4-5.0) g/dL Globulin 4.4 H (2.6-4.0) g/dL Albumin/Globulin Ratio 0.7 L (0.9-1.6) Result Diagrams: 07/25/21 05:22 07/25/21 05:22 Sepsis Event Note - Evaluation Sepsis Screening Result: No Definite Risk - Focused Exam Vital Signs: Vital Signs Temp Pulse Resp BP Pulse Ox 07/25/21 15:53 96.2 F L 76 20 123/63 91 L 07/25/21 12:00 96.9 F 77 22 H 130/41 L 90 L 07/25/21 08:13 97.3 F 68 20 131/81 92 L - Problem List & Annotations (1) Acid reflux disease SNOMED Code(s): 261007489 Code(s): K21.9 - GASTRO-ESOPHAGEAL REFLUX DISEASE WITHOUT ESOPHAGITIS Status: Acute Current Visit: Yes (2) COVID-19 SNOMED Code(s): 181504061 Code(s): U07.1 - COVID-19 Status: Acute Current Visit: Yes - Problem List Review Problem List Initiated/Reviewed/Updated: Yes - My Orders Last 24 Hours: My Active Orders 07/25/21 08:15 Pantoprazole [ProTONIX] 40 mg IVPUSH Q24H - Plan Plan:: 1. COVID-19 pneumonia -Continue with dexamethasone 6 mg per oral route once a day -Continue with remdesivir 100 mg per IV route once a day -Continue with albuterol for shortness of breath -Continue with Tessalon and Robitussin for cough -Supply oxygen as needed 2. Chronic reflux -Patient has home omeprazole on board, IV pantoprazole every 24 hours has been added
[2021-07-25] MEDS: Gabapentin 300 MG Cap PO SCH (20:26)
[2021-07-26] MEDS: guaiFENesin/Dextromethorphan 100-10 MG/5 ML Soln 10 ML Cup PO PRN ×2 (03:13→20:14)
[2021-07-26 08:28] LABS: BLOOD UREA NITROGEN,BUN 16 mg/dL (7.0-18.0); CARBON DIOXIDE,CO2 25.3 mmol/L (21.0-32.0); CHLORIDE,CL 105 mmol/L (98-107); GLUCOSE RANDOM 188 mg/dL (74-106); POTASSIUM,K 4.1 mmol/L (3.5-5.1); SODIUM,NA 141 mmol/L (136-145)
[2021-07-26] MEDS: Dexamethasone 4 MG Tab PO SCH (08:48)
[2021-07-26] MEDS: Enoxaparin 40 MG/0.4 ML Syringe SUBCUT SCH ×2 (08:49→20:14)
[2021-07-26] MEDS: Pantoprazole 40 MG/10 ML Syringe IVPUSH SCH (08:49)
--- NOTE | 2021-07-26 12:55 | PCM.PN ---
- General Info Date of Service: 07/26/21 - Review of Systems Systems Review Comment:: reports fatigue and insomnia, patient refuses to walk this morning to assess oxygen levels with exertion. States she does not feel ready to go home as she did not sleep last night. She will work with nurses later on walking test. - Patient Data Vitals - Most Recent: Last Vital Signs Temp 36.4 C 07/26/21 08:00 Pulse 83 07/26/21 08:00 Resp 18 07/26/21 08:00 BP 130/71 07/26/21 08:00 Pulse Ox 90 L 07/26/21 08:00 Weight - Most Recent: 132.449 kg I&O - Last 24 Hours: Intake & Output 07/25/21 07/26/21 07/26/21 22:59 06:59 14:59 Intake Total 925 Balance 925 Lab Results Last 24 Hours: Laboratory Results - last 24 hr 07/26/21 07/26/21 Range/Units 07:32 07:32 WBC 7.26 (4.0-11.0) K/uL RBC 4.66 (4.30-5.90) M/uL Hgb 13.1 (12.0-16.0) g/dL Hct 41.8 (36.0-46.0) % MCV 89.7 (80.0-98.0) fL MCH 28.1 (27.0-32.0) pg MCHC 31.3 (31.0-37.0) g/dL RDW Std Deviation 49.6 (28.0-62.0) fl RDW Coeff of Anita 15 (11.0-15.0) % Plt Count 243 (150-400) K/uL MPV 10.40 (7.40-12.00) fL Add Manual Diff YES Neutrophils % (Manual) 63 (48.0-80.0) % Lymphocytes % (Manual) 32 (16.0-40.0) % Monocytes % (Manual) 4 (0.0-15.0) % Basophils % (Manual) 1 (0.0-1.5) % Nucleated RBC % 0.0 /100WBC Absolute Seg Neuts 4.6 (1.4-5.7) Lymphocytes # (Manual) 2.3 (0.6-2.4) Monocytes # (Manual) 0.3 (0.0-0.8) Basophils # (Manual) 0.1 (0.0-0.1) Nucleated RBCs # 0 K/uL Sodium 141 (136-145) mmol/L Potassium 4.1 (3.5-5.1) mmol/L Chloride 105 (98-107) mmol/L Carbon Dioxide 25.3 (21.0-32.0) mmol/L BUN 16 (7.0-18.0) mg/dL Creatinine 0.8 (0.6-1.0) mg/dL Est Cr Clr Drug Dosing 101.60 mL/min Estimated GFR (MDRD) > 60.0 ml/min Glucose 188 H (74-106) mg/dL Calcium 8.2 L (8.5-10.1) mg/dL Total Bilirubin 0.2 (0.2-1.0) mg/dL AST 17 (15-37) IU/L ALT 33 (14-63) IU/L Alkaline Phosphatase 97 (46-116) U/L Total Protein 6.8 (6.4-8.2) g/dL Albumin 2.8 L (3.4-5.0) g/dL Globulin 4.0 (2.6-4.0) g/dL Albumin/Globulin Ratio 0.7 L (0.9-1.6) Med Orders - Current: Current Medications Acetaminophen (Acetaminophen 325 Mg Tab) 650 mg PO Q4H PRN PRN Reason: Pain (Mild 1-3)/fever Albuterol (Albuterol 8 Gm Inhaler) 1 gm INH Q4H PRN PRN Reason: Wheezing Last Admin: 07/25/21 09:17 Dose: 2 puff Documented by: Benzonatate (Benzonatate 100 Mg Cap) 100 mg PO Q6H PRN PRN Reason: Cough Last Admin: 07/24/21 20:47 Dose: 100 mg Documented by: Dexamethasone (Dexamethasone 4 Mg Tab) 6 mg PO DAILY [facility] Last Admin: 07/26/21 08:48 Dose: 6 mg Documented by: Enoxaparin Sodium (Enoxaparin 40 Mg/0.4 Ml Syringe) 40 mg SUBCUT Q12HR [facility] Last Admin: 07/26/21 08:49 Dose: 40 mg Documented by: Gabapentin (Gabapentin 300 Mg Cap) 900 mg PO BEDTIME [facility] Last Admin: 07/25/21 20:26 Dose: 900 mg Documented by: Guaifenesin/Dextromethorphan (Guaifenesin/Dextromethorphan 100-10 Mg/5 Ml Soln 10 Ml Cup) 10 ml PO Q6H PRN PRN Reason: Cough Last Admin: 07/26/21 03:13 Dose: 10 ml Documented by: Remdesivir 100 mg/ Sodium (Chloride) 100 mls @ 100 mls/hr IV Q24H [facility] Stop: 07/28/21 15:14 Last Admin: 07/25/21 14:03 Dose: 100 mls/hr Documented by: Pantoprazole Sodium (Pantoprazole 40 Mg/10 Ml Syringe) 40 mg IVPUSH Q24H [facility] Last Admin: 07/26/21 08:49 Dose: 40 mg Documented by: Discontinued Medications Albuterol (Albuterol 8 Gm Inhaler) 2 gm INH ONETIME ONE Stop: 07/24/21 11:57 Last Admin: 07/24/21 12:13 Dose: 8 gm Documented by: Dexamethasone (Dexamethasone 10 Mg/Ml Sdv) 6 mg IVPUSH ONETIME ONE Stop: 07/24/21 11:57 Last Admin: 07/24/21 12:13 Dose: 6 mg Documented by: Gabapentin (Gabapentin 300 Mg Cap) 300 mg PO BID [facility] Last Admin: 07/24/21 20:46 Dose: 300 mg Documented by: Sodium Chloride (Normal Saline) 1,000 mls @ 999 mls/hr IV STAT ONE Stop: 07/24/21 12:56 Last Admin: 07/24/21 12:12 Dose: 999 mls/hr Documented by: Remdesivir 200 mg/ Sodium (Chloride) 250 mls @ 250 mls/hr IV ONETIME ONE Stop: 07/24/21 14:44 Last Admin: 07/24/21 13:59 Dose: 250 mls/hr Documented by: Ketorolac Tromethamine (Ketorolac 30 Mg/Ml Sdv) 30 mg IVPUSH ONETIME ONE Stop: 07/24/21 11:58 Last Admin: 07/24/21 12:12 Dose: 30 mg Documented by: - Exam General: Alert, Oriented Neck: Supple Lungs: Clear to Auscultation, Normal Respiratory Effort Cardiovascular: Regular Rate, Regular Rhythm GI/Abdominal Exam: Soft, Non-Tender, No Distention Extremities: Non-Tender, No Pedal Edema Skin: Warm, Dry, Intact Neurological: No New Focal Deficit - Patient Data Lab Results Last 24 hrs: Laboratory Results - last 24 hr 07/26/21 07/26/21 Range/Units 07:32 07:32 WBC 7.26 (4.0-11.0) K/uL RBC 4.66 (4.30-5.90) M/uL Hgb 13.1 (12.0-16.0) g/dL Hct 41.8 (36.0-46.0) % MCV 89.7 (80.0-98.0) fL MCH 28.1 (27.0-32.0) pg MCHC 31.3 (31.0-37.0) g/dL RDW Std Deviation 49.6 (28.0-62.0) fl RDW Coeff of Anita 15 (11.0-15.0) % Plt Count 243 (150-400) K/uL MPV 10.40 (7.40-12.00) fL Add Manual Diff YES Neutrophils % (Manual) 63 (48.0-80.0) % Lymphocytes % (Manual) 32 (16.0-40.0) % Monocytes % (Manual) 4 (0.0-15.0) % Basophils % (Manual) 1 (0.0-1.5) % Nucleated RBC % 0.0 /100WBC Absolute Seg Neuts 4.6 (1.4-5.7) Lymphocytes # (Manual) 2.3 (0.6-2.4) Monocytes # (Manual) 0.3 (0.0-0.8) Basophils # (Manual) 0.1 (0.0-0.1) Nucleated RBCs # 0 K/uL Sodium 141 (136-145) mmol/L Potassium 4.1 (3.5-5.1) mmol/L Chloride 105 (98-107) mmol/L Carbon Dioxide 25.3 (21.0-32.0) mmol/L BUN 16 (7.0-18.0) mg/dL Creatinine 0.8 (0.6-1.0) mg/dL Est Cr Clr Drug Dosing 101.60 mL/min Estimated GFR (MDRD) > 60.0 ml/min Glucose 188 H (74-106) mg/dL Calcium 8.2 L (8.5-10.1) mg/dL Total Bilirubin 0.2 (0.2-1.0) mg/dL AST 17 (15-37) IU/L ALT 33 (14-63) IU/L Alkaline Phosphatase 97 (46-116) U/L Total Protein 6.8 (6.4-8.2) g/dL Albumin 2.8 L (3.4-5.0) g/dL Globulin 4.0 (2.6-4.0) g/dL Albumin/Globulin Ratio 0.7 L (0.9-1.6) Result Diagrams: 07/26/21 07:32 07/26/21 07:32 Sepsis Event Note - Evaluation Sepsis Screening Result: No Definite Risk - Focused Exam Vital Signs: Vital Signs Temp Pulse Resp BP Pulse Ox 07/26/21 08:00 36.4 C 83 18 130/71 90 L 07/26/21 04:00 36.9 C 83 18 109/70 95 - Problem List & Annotations (1) COVID-19 SNOMED Code(s): 270074320 Code(s): U07.1 - COVID-19 Status: Acute Current Visit: Yes (2) Hypoxia SNOMED Code(s): 850419664 Code(s): R09.02 - HYPOXEMIA Status: Acute Current Visit: Yes - Problem List Review Problem List Initiated/Reviewed/Updated: Yes - My Orders Last 24 Hours: My Active Orders 07/25/21 14:15 Remdesivir 100 mg Sodium Chloride 0.9% [Normal Saline AdvBag] 100 ml IV Q24H 07/25/21 21:00 Gabapentin [Neurontin] 900 mg PO BEDTIME 07/27/21 05:11 CBC WITH AUTO DIFF [HEME] AM COMPREHENSIVE METABOLIC PN,CMP [CHEM] AM 07/28/21 05:11 CBC WITH AUTO DIFF [HEME] AM COMPREHENSIVE METABOLIC PN,CMP [CHEM] AM 07/29/21 05:11 CBC WITH AUTO DIFF [HEME] AM COMPREHENSIVE METABOLIC PN,CMP [CHEM] AM - Plan Plan:: 1. COVID-19 pneumonia continue dexamethasone and remdesivir likely discharge home tomorrow
[2021-07-26] MEDS: REMDESIVIR 100 MG in Sodium Chloride 0.9% 100 ML IV SCH (13:51)
[2021-07-26] MEDS: Gabapentin 300 MG Cap PO SCH (20:14)
[2021-07-26] MEDS: Albuterol 8 GM Inhaler INH PRN (20:20)
[2021-07-27] MEDS: Pantoprazole 40 MG/10 ML Syringe IVPUSH SCH (08:38)
[2021-07-27] MEDS: Enoxaparin 40 MG/0.4 ML Syringe SUBCUT SCH (08:38)
[2021-07-27] MEDS: Dexamethasone 4 MG Tab PO SCH (08:38)
[2021-07-27] MEDS: guaiFENesin/Dextromethorphan 100-10 MG/5 ML Soln 10 ML Cup PO PRN (08:57)
[2021-07-27 09:10] LABS: BLOOD UREA NITROGEN,BUN 19 mg/dL (7.0-18.0); CHLORIDE,CL 105 mmol/L (98-107); GLUCOSE RANDOM 149 mg/dL (74-106); POTASSIUM,K 4.2 mmol/L (3.5-5.1); SODIUM,NA 140 mmol/L (136-145)
[2021-07-27 12:24] VITALS: BP 123/83; PULSE 70
[2021-07-27] MEDS: REMDESIVIR 100 MG in Sodium Chloride 0.9% 100 ML IV SCH (13:13)
--- NOTE | 2021-07-27 14:04 | PCM.DCSUM1 ---
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 She was noted to by hypoxic in the mid 80s requiring 2 L NC. She tested positive for COVID. chest x-ray reported bilateral infiltrates. She was treated with remdesivir and dexamethasone. She did have improvement in her symptoms and was weened off her oxygen. She reports she is ready for discharge today. Due to concerns of Asthma exacerbation she was sent home with dexamethasone and albuterol inhaler. She is to follow up with her primary care provider. - Patient Instructions Diet: Regular Diet as Tolerated Activity: As Tolerated Notify Provider of: Fever, Increased Pain, Nausea and/or Vomiting - Discharge Plan Prescriptions/Med Rec: dexAMETHasone [Dexamethasone] 6 mg PO DAILY #8 tablet Albuterol/Ipratropium [DuoNeb 3.0-0.5 MG/3 ML] 3 ml IH Q6H PRN #30 ml PRN Reason: wheezing Pantoprazole Sodium [Protonix] 40 mg PO DAILY #14 tablet. Benzonatate [Teswendy Perlbernardino] 100 mg PO Q6H PRN #20 cap PRN Reason: Cough Albuterol [Ventolin HFA] 1 gm INH Q6HR PRN #1 inhaler PRN Reason: Wheezing Home Medications: Home Meds Gabapentin [Neurontin] 900 mg PO BEDTIME 01/22/20 [History] Albuterol [Ventolin HFA] 1 gm INH Q6HR PRN #1 inhaler 07/27/21 [Rx] Albuterol/Ipratropium [DuoNeb 3.0-0.5 MG/3 ML] 3 ml IH Q6H PRN #30 ml 07/27/21 [Rx] Benzonatate [Tessalon Perles] 100 mg PO Q6H PRN #20 cap 07/27/21 [Rx] Pantoprazole Sodium [Protonix] 40 mg PO DAILY #14 tablet. 07/27/21 [Rx] dexAMETHasone [Dexamethasone] 6 mg PO DAILY #8 tablet 07/27/21 [Rx] Patient Handouts: Hypoxia, COVID-19 Frequently Asked Questions, COVID-19 Vacc ine Information, COVID-19: How to Protect Yourself and Others - [facility], COVID-19 Quarantine vs. Isolation - [facility] (04/14/2021) Forms: ED Department Discharge Referrals: Emilia Anaya NP [Primary Care Provider] - 08/05/21 4:25 pm - Discharge Summary/Plan Comment DC Time >30 min.: No Total # of Minutes for Discharge Time: 20 - Patient Data Vitals - Most Recent: Last Vital Signs Temp 35.9 C L 07/27/21 12:00 Pulse 70 07/27/21 12:00 Resp 16 07/27/21 12:00 BP 123/83 07/27/21 12:00 Pulse Ox 93 L 07/27/21 12:00 Weight - Most Recent: 132.449 kg I&O - Last 24 hours: Intake & Output 07/26/21 07/27/21 07/27/21 22:59 06:59 14:59 Intake Total 550 800 Balance 550 800 Lab Results - Last 24 hrs: Laboratory Results - last 24 hr 07/27/21 07/27/21 Range/Units 06:55 06:55 WBC 9.36 (4.0-11.0) K/uL RBC 4.75 (4.30-5.90) M/uL Hgb 13.5 (12.0-16.0) g/dL Hct 42.7 (36.0-46.0) % MCV 89.9 (80.0-98.0) fL MCH 28.4 (27.0-32.0) pg MCHC 31.6 (31.0-37.0) g/dL RDW Std Deviation 49.4 (28.0-62.0) fl RDW Coeff of Anita 15 (11.0-15.0) % Plt Count 241 (150-400) K/uL MPV 10.80 (7.40-12.00) fL Neut % (Auto) 57.9 (48.0-80.0) % Lymph % (Auto) 34.1 (16.0-40.0) % Dickens % (Auto) 7.6 (0.0-15.0) % Eos % (Auto) 0.2 (0.0-7.0) % Baso % (Auto) 0.2 (0.0-1.5) % Neut # (Auto) 5.4 (1.4-5.7) K/uL Lymph # (Auto) 3.2 H (0.6-2.4) K/uL Dickens # (Auto) 0.7 (0.0-0.8) K/uL Eos # (Auto) 0.0 (0.0-0.7) K/uL Baso # (Auto) 0.0 (0.0-0.1) K/uL Nucleated RBC % 0.0 /100WBC Nucleated RBCs # 0 K/uL Sodium 140 (136-145) mmol/L Potassium 4.2 (3.5-5.1) mmol/L Chloride 105 (98-107) mmol/L Carbon Dioxide 29.0 (21.0-32.0) mmol/L BUN 19 H (7.0-18.0) mg/dL Creatinine 0.8 (0.6-1.0) mg/dL Est Cr Clr Drug Dosing 101.60 mL/min Estimated GFR (MDRD) > 60.0 ml/min Glucose 149 H (74-106) mg/dL Calcium 8.4 L (8.5-10.1) mg/dL Total Bilirubin 0.1 L (0.2-1.0) mg/dL AST 16 (15-37) IU/L ALT 37 (14-63) IU/L Alkaline Phosphatase 77 (46-116) U/L Total Protein 6.3 L (6.4-8.2) g/dL Albumin 2.8 L (3.4-5.0) g/dL Globulin 3.5 (2.6-4.0) g/dL Albumin/Globulin Ratio 0.8 L (0.9-1.6) Med Orders - Current: Current Medications Acetaminophen (Acetaminophen 325 Mg Tab) 650 mg PO Q4H PRN PRN Reason: Pain (Mild 1-3)/fever Last Admin: 07/27/21 08:57 Dose: 650 mg Documented by: Albuterol (Albuterol 8 Gm Inhaler) 1 gm INH Q4H PRN PRN Reason: Wheezing Last Admin: 07/26/21 20:20 Dose: 2 puff Documented by: Benzonatate (Benzonatate 100 Mg Cap) 100 mg PO Q6H PRN PRN Reason: Cough Last Admin: 07/24/21 20:47 Dose: 100 mg Documented by: Dexamethasone (Dexamethasone 4 Mg Tab) 6 mg PO DAILY [facility] Last Admin: 07/27/21 08:38 Dose: 6 mg Documented by: Enoxaparin Sodium (Enoxaparin 40 Mg/0.4 Ml Syringe) 40 mg SUBCUT Q12HR [facility] Last Admin: 07/27/21 08:38 Dose: 40 mg Documented by: Gabapentin (Gabapentin 300 Mg Cap) 900 mg PO BEDTIME [facility] Last Admin: 07/26/21 20:14 Dose: 900 mg Documented by: Guaifenesin/Dextromethorphan (Guaifenesin/Dextromethorphan 100-10 Mg/5 Ml Soln 10 Ml Cup) 10 ml PO Q6H PRN PRN Reason: Cough Last Admin: 07/27/21 08:57 Dose: 10 ml Documented by: Remdesivir 100 mg/ Sodium (Chloride) 100 mls @ 100 mls/hr IV Q24H [facility] Stop: 07/28/21 15:14 Last Admin: 07/27/21 13:13 Dose: 100 mls/hr Documented by: Pantoprazole Sodium (Pantoprazole 40 Mg/10 Ml Syringe) 40 mg IVPUSH Q24H [facility] Last Admin: 07/27/21 08:38 Dose: 40 mg Documented by: Discontinued Medications Albuterol (Albuterol 8 Gm Inhaler) 2 gm INH ONETIME ONE Stop: 07/24/21 11:57 Last Admin: 07/24/21 12:13 Dose: 8 gm Documented by: Dexamethasone (Dexamethasone 10 Mg/Ml Sdv) 6 mg IVPUSH ONETIME ONE Stop: 07/24/21 11:57 Last Admin: 07/24/21 12:13 Dose: 6 mg Documented by: Gabapentin (Gabapentin 300 Mg Cap) 300 mg PO BID [facility] Last Admin: 07/24/21 20:46 Dose: 300 mg Documented by: Sodium Chloride (Normal Saline) 1,000 mls @ 999 mls/hr IV STAT ONE Stop: 07/24/21 12:56 Last Admin: 07/24/21 12:12 Dose: 999 mls/hr Documented by: Remdesivir 200 mg/ Sodium (Chloride) 250 mls @ 250 mls/hr IV ONETIME ONE Stop: 07/24/21 14:44 Last Admin: 07/24/21 13:59 Dose: 250 mls/hr Documented by: Ketorolac Tromethamine (Ketorolac 30 Mg/Ml Sdv) 30 mg IVPUSH ONETIME ONE Stop: 07/24/21 11:58 Last Admin: 07/24/21 12:12 Dose: 30 mg Documented by:
== END 2021-07-27 15:05 | disposition home or self-care (01) | DRG 137 ==
LOC: MW.ED 11:47 → MW.MS 13:44
PROVIDERS: ADMIT Internal Medicine; ATTEND Internal Medicine
PROC: XW033E5 Introduction of Remdesivir Anti-infective into Peripheral Vein, Percutaneous Approach, New Technology Group 5 (ICD-10-PCS; principal; 2021-07-24)
PROC: 3E0333Z Introduction of Anti-inflammatory into Peripheral Vein, Percutaneous Approach (ICD-10-PCS; 2021-07-24)
PROC: 3E0DX3Z Introduction of Anti-inflammatory into Mouth and Pharynx, External Approach (ICD-10-PCS; 2021-07-26)
DX: U07.1 COVID-19 (principal); J45.901 Unspecified asthma with (acute) exacerbation; G71.11 Myotonic muscular dystrophy; H54.7 Unspecified visual loss; E78.00 Pure hypercholesterolemia, unspecified; K21.9 Gastro-esophageal reflux disease without esophagitis; F41.9 Anxiety disorder, unspecified; F32.A Depression, unspecified; E66.9 Obesity, unspecified; Z98.49 Cataract extraction status, unspecified eye; Z91.09 Other allergy status, other than to drugs and biological substances; Z79.899 Other long term (current) drug therapy; Z87.440 Personal history of urinary (tract) infections; Z90.49 Acquired absence of other specified parts of digestive tract; Z98.51 Tubal ligation status; J12.82 Pneumonia due to coronavirus disease 2019
CPT/HCPCS: 0240U; 36415; 71045; 71045-26; 80053; 81001; 83605; 85025; 96374; 96375; 99285-25; A9270-GY; C9113; J1100; J1650; J1885; J7030; J7050; J8540

== ENCOUNTER 2022-09-12 17:36 | Emergency (ER) | payer MEDICAID ==
[2022-09-12] MEDS ORDERED: Lidocaine 2% Viscous Solution 15 ML UD PO STA (18:22)
[2022-09-12] MEDS ORDERED: Benzocaine 20% Topical Spray UD MUCMEM STA (18:22)
[2022-09-12] MEDS ORDERED: Acetaminophen/HYDROcodone 325-10 MG Tab PO STA (18:26)
[2022-09-12 18:59] VITALS: BP 132/96; PULSE 75
== END 2022-09-12 18:59 | disposition home or self-care (01) ==
LOC: MW.ED 17:36
DX: K04.7 Periapical abscess without sinus (principal); J45.909 Unspecified asthma, uncomplicated; K21.9 Gastro-esophageal reflux disease without esophagitis; E66.9 Obesity, unspecified; Z68.39 Body mass index [BMI] 39.0-39.9, adult; Z79.899 Other long term (current) drug therapy
CPT/HCPCS: 99282; A9270

== ENCOUNTER 2022-09-16 20:44 | Emergency (ER) | payer MEDICAID ==
[2022-09-16] MEDS ORDERED: Acetaminophen/HYDROcodone 325-10 MG Tab PO ONE (22:41)
[2022-09-16 23:22] VITALS: BP 113/75; PULSE 76
== END 2022-09-16 23:22 | disposition home or self-care (01) ==
LOC: MW.ED 20:44
DX: K02.9 Dental caries, unspecified (principal); J45.909 Unspecified asthma, uncomplicated; K21.9 Gastro-esophageal reflux disease without esophagitis; E66.9 Obesity, unspecified; Z68.41 Body mass index [BMI] 40.0-44.9, adult; Z91.048 Other nonmedicinal substance allergy status; Z79.899 Other long term (current) drug therapy
CPT/HCPCS: 99282; A9270

== ENCOUNTER 2023-02-22 09:13 | Emergency (ER) | payer MEDICAID ==
[2023-02-22 10:01] VITALS: BP 128/71
[2023-02-22] MEDS ORDERED: Sodium Chloride 0.9% 1,000 ML IV STA (10:26)
[2023-02-22] MEDS ORDERED: Ketorolac 30 MG/ML SDV IVPUSH STA (10:26)
[2023-02-22] MEDS ORDERED: Sodium Chloride 0.9% 10 ML Syringe FLUSH PRN (10:26)
[2023-02-22] MEDS ORDERED: Sodium Chloride 0.9% 2.5 ML Syringe FLUSH PRN (10:26)
[2023-02-22] MEDS ORDERED: Ampicillin/Sulbactam Na 3 GM in Sodium Chloride 0.9% 100 ML IV STA (10:40)
[2023-02-22] MEDS ORDERED: Omeprazole 20 MG Cap.CR PO STA (10:41)
[2023-02-22 10:48] LABS: BASOPHILS PERCENT AUTO 0.2 % (0.0-1.5); EOSINOPHILS ABSOLUTE AUTO 0.2 K/uL (0.0-0.7); EOSINOPHILS PERCENT AUTO 1.9 % (0.0-7.0); HEMATOCRIT 42.6 % (36.0-46.0); HEMOGLOBIN 12.9 g/dL (12.0-16.0); LYMPHOCYTES PERCENT AUTO 17.8 % (16.0-40.0); MEAN CORPUSCULAR HGB CONC 30.3 g/dL (31.0-37.0); MEAN CORPUSCULAR VOLUME 89.1 fL (80.0-98.0); MONOCYTES ABSOLUTE AUTO 0.6 K/uL (0.0-0.8); MONOCYTES PERCENT AUTO 5.6 % (0.0-15.0); NEUTROPHILS ABSOLUTE AUTO 8.4 K/uL (1.4-5.7); NEUTROPHILS PERCENT AUTO 74.5 % (48.0-80.0); NRBC ABSOLUTE 0 K/uL; PLATELET COUNT,PLT 223 K/uL (150-400); RED BLOOD CELL COUNT 4.78 M/uL (4.30-5.90); WHITE BLOOD CELL COUNT,WBC 11.21 K/uL (4.0-11.0)
[2023-02-22 11:33] LABS: A/G RATIO 0.7 (0.9-1.6); ALBUMIN 2.9 g/dL (3.4-5.0); BILIRUBIN TOTAL 0.5 mg/dL (0.2-1.0); CARBON DIOXIDE,CO2 27.4 mmol/L (21.0-32.0); EST CRCL DRUG DOSING (CG) 79.72 mL/min; POTASSIUM,K 3.5 mmol/L (3.5-5.1); PROTEIN TOTAL,TP 7.1 g/dL (6.4-8.2)
[2023-02-22 12:14] VITALS: PULSE 84
== END 2023-02-22 12:14 | disposition home or self-care (01) ==
LOC: MW.ED 09:13
DX: J02.0 Streptococcal pharyngitis (principal); E11.9 Type 2 diabetes mellitus without complications; Z91.048 Other nonmedicinal substance allergy status; Z79.899 Other long term (current) drug therapy; Z86.16 Personal history of COVID-19; Z90.49 Acquired absence of other specified parts of digestive tract
CPT/HCPCS: 36415; 80053; 85025; 86308; 87651; 96365; 96375; 99283; A9270; J0295; J1885; J3490; J7030; 99284

== ENCOUNTER 2023-10-08 07:33 | Emergency (ER) | payer MEDICAID ==
[2023-10-08 08:15] VITALS: BP 133/87; PULSE 93
[2023-10-08] MEDS: Sodium Chloride 0.9% 1,000 ML IV ONE (09:15)
[2023-10-08] MEDS: Ondansetron 4 MG/2 ML SDV IVPUSH ONE (09:16)
[2023-10-08] MEDS: Ketorolac 30 MG/ML SDV IVPUSH ONE (09:16)
[2023-10-08] MEDS: Morphine 4 MG/ML Syringe IVPUSH ONE (09:16)
[2023-10-08 09:19] LABS: BASOPHILS ABSOLUTE AUTO 0.02 K/uL (0.00-0.20); BASOPHILS PERCENT AUTO 0.3 % (0.0-1.0); EOSINOPHILS PERCENT AUTO 1.4 % (0.0-6.0); HEMATOCRIT 45.1 % (37.0-47.0); IMMATURE GRAN ABSOLUTE AUTO 0.01 K/uL (0.00-0.05); IMMATURE GRAN PERCENT AUTO 0.1 % (0.0-0.4); LYMPHOCYTES ABSOLUTE AUTO 0.59 K/uL (1.00-4.80); LYMPHOCYTES PERCENT AUTO 8.1 % (24.0-44.0); MEAN CORPUSCULAR HEMOGLOBIN 27.8 pg (28.0-32.0); MEAN CORPUSCULAR VOLUME 89.7 fL (83.0-99.0); MONOCYTES ABSOLUTE AUTO 0.31 K/uL (0.00-0.80); MONOCYTES PERCENT AUTO 4.2 % (0.0-8.0); NEUTROPHILS ABSOLUTE AUTO 6.27 K/uL (1.80-7.70); NEUTROPHILS PERCENT AUTO 85.9 % (41.0-71.0); PLATELET COUNT,PLT 211 K/uL (150-400); RED BLOOD CELL COUNT 5.03 M/uL (4.10-5.30)
[2023-10-08 09:53] LABS: A/G RATIO 0.7 (0.9-1.6); BILIRUBIN TOTAL 0.6 mg/dL (0.2-1.0); CALCIUM 8.8 mg/dL (8.5-10.1); CARBON DIOXIDE,CO2 27.9 mmol/L (21.0-32.0); EST CRCL DRUG DOSING (CG) 78.93 mL/min; POTASSIUM,K 3.8 mmol/L (3.5-5.1); PROTEIN TOTAL,TP 7.4 g/dL (6.4-8.2)
[2023-10-08 10:00] LABS: CORONAVIRUS COVID-19 NAA NEGATIVE (NEGATIVE); INFLUENZA A NAA NEGATIVE (NEGATIVE); INFLUENZA B NAA NEGATIVE (NEGATIVE)
[2023-10-08] MEDS: Iopamidol 755 MG/ML 500 ML Multipack Bottle IVPUSH STA (11:26)
[2023-10-08 12:10] LABS: APPEARANCE,URINE CLEAR; BILIRUBIN,URINE NEGATIVE (NEGATIVE); COLOR,URINE YELLOW; GLUCOSE,URINE NEGATIVE (NEGATIVE); KETONES,URINE NEGATIVE (NEGATIVE); LEUKOCYTE ESTERASE,URINE NEGATIVE (NEGATIVE); NITRITE,URINE NEGATIVE (NEGATIVE); OCCULT BLOOD,URINE NEGATIVE (NEGATIVE); PROTEIN,URINE NEGATIVE (NEGATIVE); UROBILINOGEN,URINE 0.2 EU/dL (<2.0)
== END 2023-10-08 12:19 | disposition home or self-care (01) ==
LOC: MW.ED 07:33
DX: R10.31 Right lower quadrant pain (principal); J45.909 Unspecified asthma, uncomplicated; E78.00 Pure hypercholesterolemia, unspecified; K21.9 Gastro-esophageal reflux disease without esophagitis; E11.9 Type 2 diabetes mellitus without complications; Z90.49 Acquired absence of other specified parts of digestive tract; Z79.899 Other long term (current) drug therapy; Z91.048 Other nonmedicinal substance allergy status
CPT/HCPCS: 0240U; 36415; 74177; 80053; 81003; 83690; 83735; 84703; 85025; 96361; 96374; 96375; 99284; J1885; J2270; J2405; J7030; Q9967

== ENCOUNTER 2024-05-17 01:08 | Emergency (ER) | payer MEDICAID ==
[2024-05-17 02:42] LABS: CORONAVIRUS COVID-19 NAA NEGATIVE (NEGATIVE); INFLUENZA A NAA NEGATIVE (NEGATIVE); INFLUENZA B NAA NEGATIVE (NEGATIVE); RESPIRATORY SYNCYTIAL VIR NAA NEGATIVE (NEGATIVE)
[2024-05-17 03:11] VITALS: BP 108/54; PULSE 82
[2024-05-17] MEDS: Dexamethasone 4 MG Tab PO ONE (03:37)
== END 2024-05-17 03:47 | disposition home or self-care (01) ==
LOC: MW.ED 01:08
DX: G93.31 Postviral fatigue syndrome (principal); R53.83 Other fatigue; R05.9 Cough, unspecified; R09.81 Nasal congestion; Z82.0 Family history of epilepsy and other diseases of the nervous system; J45.909 Unspecified asthma, uncomplicated; K21.9 Gastro-esophageal reflux disease without esophagitis; E11.9 Type 2 diabetes mellitus without complications; Z79.899 Other long term (current) drug therapy; Z91.048 Other nonmedicinal substance allergy status
CPT/HCPCS: 0241U; 71045; 99283; J8540

== ENCOUNTER 2024-05-19 16:49 | Emergency (ER) | payer MEDICAID ==
[2024-05-19] MEDS ORDERED: Sodium Chloride 0.9% 2.5 ML Syringe FLUSH PRN (17:00)
[2024-05-19] MEDS ORDERED: Sodium Chloride 0.9% 10 ML Syringe FLUSH PRN (17:00)
[2024-05-19 17:06] LABS: BASOPHILS ABSOLUTE AUTO 0.08 K/uL (0.00-0.20); BASOPHILS PERCENT AUTO 0.7 % (0.0-1.0); EOSINOPHILS ABSOLUTE AUTO 0.37 K/uL (0.00-0.45); EOSINOPHILS PERCENT AUTO 3.1 % (0.0-6.0); HEMATOCRIT 43.7 % (37.0-47.0); HEMOGLOBIN 13.6 g/dL (12.0-16.0); IMMATURE GRAN ABSOLUTE AUTO 0.12 K/uL (0.00-0.05); LYMPHOCYTES PERCENT AUTO 29.4 % (24.0-44.0); MEAN CORPUSCULAR HEMOGLOBIN 27.9 pg (28.0-32.0); MEAN CORPUSCULAR HGB CONC 31.1 g/dL (32.0-36.0); MEAN CORPUSCULAR VOLUME 89.5 fL (83.0-99.0); MEAN PLATELET VOLUME 10.3 fL (9.4-12.3); MONOCYTES ABSOLUTE AUTO 0.67 K/uL (0.00-0.80); MONOCYTES PERCENT AUTO 5.6 % (0.0-8.0); NEUTROPHILS ABSOLUTE AUTO 7.18 K/uL (1.80-7.70); NEUTROPHILS PERCENT AUTO 60.2 % (41.0-71.0); PLATELET COUNT,PLT 241 K/uL (150-400); RED BLOOD CELL COUNT 4.88 M/uL (4.10-5.30); WHITE BLOOD CELL COUNT,WBC 11.92 K/uL (3.9-11.3)
[2024-05-19] MEDS: Albuterol/Ipratropium 3.0-0.5 MG/3 ML Neb Soln NEB ONE (17:26)
[2024-05-19 17:39] LABS: A/G RATIO 0.7 (0.9-1.6); ALBUMIN 2.8 g/dL (3.4-5.0); BILIRUBIN TOTAL 0.3 mg/dL (0.2-1.0); CALCIUM 8.2 mg/dL (8.5-10.1); CARBON DIOXIDE,CO2 28.8 mmol/L (21.0-32.0); CREATININE 0.8 mg/dL (0.6-1.0); EST CRCL DRUG DOSING (CG) 98.67 mL/min; POTASSIUM,K 4.2 mmol/L (3.5-5.1); PROTEIN TOTAL,TP 6.7 g/dL (6.4-8.2)
[2024-05-19] MEDS: methylPREDNISolone Sodium Succinate 125 MG/2 ML SDV IVPUSH ONE (19:19)
[2024-05-19] MEDS: Acetaminophen 500 MG Tab PO ONE (19:33)
[2024-05-19] MEDS: Iopamidol 755 MG/ML 500 ML Multipack Bottle IVPUSH ONE (19:52)
[2024-05-19 21:05] VITALS: BP 123/68; PULSE 95
== END 2024-05-19 21:08 | disposition home or self-care (01) ==
LOC: MW.ED 16:49
DX: R06.02 Shortness of breath (principal); E11.9 Type 2 diabetes mellitus without complications; J45.909 Unspecified asthma, uncomplicated; K21.9 Gastro-esophageal reflux disease without esophagitis; F17.210 Nicotine dependence, cigarettes, uncomplicated; Z90.49 Acquired absence of other specified parts of digestive tract; Z91.048 Other nonmedicinal substance allergy status; Z79.84 Long term (current) use of oral hypoglycemic drugs; Z79.51 Long term (current) use of inhaled steroids; Z79.891 Long term (current) use of opiate analgesic; Z79.52 Long term (current) use of systemic steroids; Z79.899 Other long term (current) drug therapy; Z75.8 Other problems related to medical facilities and other health care
CPT/HCPCS: 36415; 71045; 71275; 80053; 83880; 84484; 85025; 93005; 94640; 96374; 99285; A9270; J2919; Q9967; J7620-GY

== ENCOUNTER 2024-08-10 11:55 | Emergency (ER) | payer MEDICAID ==
[2024-08-10] MEDS: Ketorolac 60 MG/2 ML SDV IM ONE (12:47)
[2024-08-10] MEDS: predniSONE 20 MG Tab PO ONE (12:47)
[2024-08-10] MEDS: Lidocaine 4% 1 each Patch TOP STA (12:48)
[2024-08-10 13:55] VITALS: BP 126/92; PULSE 88
[2024-08-10] MEDS: Acetaminophen/HYDROcodone 325-5 MG Tab PO ONE (13:55)
== END 2024-08-10 13:58 | disposition home or self-care (01) ==
LOC: MW.ED 11:55
DX: M54.42 Lumbago with sciatica, left side (principal); J45.909 Unspecified asthma, uncomplicated; K21.9 Gastro-esophageal reflux disease without esophagitis; E11.9 Type 2 diabetes mellitus without complications; F17.210 Nicotine dependence, cigarettes, uncomplicated; Z90.49 Acquired absence of other specified parts of digestive tract; Z91.048 Other nonmedicinal substance allergy status; Z79.51 Long term (current) use of inhaled steroids; Z79.52 Long term (current) use of systemic steroids; Z79.899 Other long term (current) drug therapy; Z75.8 Other problems related to medical facilities and other health care
CPT/HCPCS: 96372; 99283; A9270; J1885

== ENCOUNTER 2024-08-17 17:02 | Inpatient (IN) | payer MEDICAID ==
[2024-08-17] MEDS: Albuterol/Ipratropium 3.0-0.5 MG/3 ML Neb Soln NEB ONE (20:18)
[2024-08-17] MEDS: methylPREDNISolone Sodium Succinate 125 MG/2 ML SDV IM ONE (20:18)
[2024-08-17] MEDS ORDERED: Sodium Chloride 0.9% 2.5 ML Syringe FLUSH PRN (21:15)
[2024-08-17] MEDS ORDERED: Sodium Chloride 0.9% 10 ML Syringe FLUSH PRN (21:15)
[2024-08-17] MEDS ORDERED: Acetaminophen 325 MG Tab PO PRN (21:43)
[2024-08-17] MEDS ORDERED: Polyethylene Glycol 3350 Powder 17 GM Packet PO PRN (21:43)
[2024-08-17] MEDS ORDERED: Acetaminophen 650 MG Supp RECTAL PRN (21:43)
[2024-08-17 21:47] LABS: BASOPHILS ABSOLUTE AUTO 0.06 K/uL (0.00-0.20); BASOPHILS PERCENT AUTO 0.7 % (0.0-1.0); EOSINOPHILS PERCENT AUTO 2.2 % (0.0-6.0); HEMATOCRIT 45.7 % (37.0-47.0); HEMOGLOBIN 14.1 g/dL (12.0-16.0); IMMATURE GRAN ABSOLUTE AUTO 0.02 K/uL (0.00-0.05); IMMATURE GRAN PERCENT AUTO 0.2 % (0.0-0.4); LYMPHOCYTES ABSOLUTE AUTO 2.16 K/uL (1.00-4.80); LYMPHOCYTES PERCENT AUTO 24.2 % (24.0-44.0); MEAN CORPUSCULAR HEMOGLOBIN 27.6 pg (28.0-32.0); MEAN CORPUSCULAR HGB CONC 30.9 g/dL (32.0-36.0); MEAN CORPUSCULAR VOLUME 89.6 fL (83.0-99.0); MEAN PLATELET VOLUME 10.2 fL (9.4-12.3); MONOCYTES ABSOLUTE AUTO 0.68 K/uL (0.00-0.80); MONOCYTES PERCENT AUTO 7.6 % (0.0-8.0); NEUTROPHILS ABSOLUTE AUTO 5.79 K/uL (1.80-7.70); NEUTROPHILS PERCENT AUTO 65.1 % (41.0-71.0); PLATELET COUNT,PLT 244 K/uL (150-400); WHITE BLOOD CELL COUNT,WBC 8.91 K/uL (3.9-11.3)
[2024-08-17 22:14] LABS: LACTIC ACID 2.1 mmol/L (0.4-2.0)
[2024-08-17 22:15] LABS: A/G RATIO 0.8 (0.9-1.6); ALBUMIN 3.1 g/dL (3.4-5.0); BILIRUBIN TOTAL 0.3 mg/dL (0.2-1.0); CALCIUM 9.4 mg/dL (8.5-10.1); CARBON DIOXIDE,CO2 27.9 mmol/L (21.0-32.0); CREATININE 1.2 mg/dL (0.6-1.0); EST CRCL DRUG DOSING (CG) 65.13 mL/min; POTASSIUM,K 4.8 mmol/L (3.5-5.1); PROTEIN TOTAL,TP 7.2 g/dL (6.4-8.2)
[2024-08-17] MEDS: Sodium Chloride 0.9% 1,000 ML IV SCH (22:57)
[2024-08-17] MEDS: Pantoprazole 40 MG in Sodium Chloride 0.9% 10 ML IVPUSH SCH (23:03)
[2024-08-17] MEDS: Albuterol/Ipratropium 3.0-0.5 MG/3 ML Neb Soln NEB SCH (23:04)
[2024-08-17] MEDS: Albuterol 0.083% 2.5 MG/3 ML Neb Soln NEB SCH (23:09)
[2024-08-18] MEDS: Sodium Chloride 0.9% 1,000 ML IV ONE ×3 (00:38→05:59)
[2024-08-18 02:38] LABS: BASOPHILS ABSOLUTE AUTO 0.03 K/uL (0.00-0.20); BASOPHILS PERCENT AUTO 0.3 % (0.0-1.0); EOSINOPHILS ABSOLUTE AUTO 0.02 K/uL (0.00-0.45); EOSINOPHILS PERCENT AUTO 0.2 % (0.0-6.0); HEMATOCRIT 42.8 % (37.0-47.0); HEMOGLOBIN 13.1 g/dL (12.0-16.0); IMMATURE GRAN ABSOLUTE AUTO 0.02 K/uL (0.00-0.05); IMMATURE GRAN PERCENT AUTO 0.2 % (0.0-0.4); LYMPHOCYTES ABSOLUTE AUTO 0.64 K/uL (1.00-4.80); LYMPHOCYTES PERCENT AUTO 7.4 % (24.0-44.0); MEAN CORPUSCULAR HEMOGLOBIN 27.3 pg (28.0-32.0); MEAN CORPUSCULAR HGB CONC 30.6 g/dL (32.0-36.0); MEAN CORPUSCULAR VOLUME 89.2 fL (83.0-99.0); MEAN PLATELET VOLUME 10.1 fL (9.4-12.3); MONOCYTES ABSOLUTE AUTO 0.13 K/uL (0.00-0.80); MONOCYTES PERCENT AUTO 1.5 % (0.0-8.0); NEUTROPHILS ABSOLUTE AUTO 7.82 K/uL (1.80-7.70); NEUTROPHILS PERCENT AUTO 90.4 % (41.0-71.0); PLATELET COUNT,PLT 215 K/uL (150-400); WHITE BLOOD CELL COUNT,WBC 8.66 K/uL (3.9-11.3)
[2024-08-18 02:57] LABS: CALCIUM 8.9 mg/dL (8.5-10.1); CARBON DIOXIDE,CO2 25.7 mmol/L (21.0-32.0); CREATININE 1.3 mg/dL (0.6-1.0); EST CRCL DRUG DOSING (CG) 60.12 mL/min; PHOSPHORUS 1.5 mg/dL (2.6-4.7); POTASSIUM,K 4.6 mmol/L (3.5-5.1)
[2024-08-18] MEDS: Magnesium Sulfate/D5W 1 GM in Premix Bag 2 BAG IV ONE (03:04)
[2024-08-18 04:21] LABS: APPEARANCE,URINE CLEAR; COLOR,URINE YELLOW; GLUCOSE,URINE >1000 mg/dL (NEGATIVE); KETONES,URINE NEGATIVE (NEGATIVE); PROTEIN,URINE NEGATIVE (NEGATIVE)
[2024-08-18 04:22] LABS: BILIRUBIN,URINE NEGATIVE (NEGATIVE); LEUKOCYTE ESTERASE,URINE NEGATIVE (NEGATIVE); NITRITE,URINE NEGATIVE (NEGATIVE); OCCULT BLOOD,URINE NEGATIVE (NEGATIVE); UROBILINOGEN,URINE <2.0 EU/dL (<2.0)
[2024-08-18] MEDS ORDERED: 50% Dextrose in Water 50 ML Syringe IVPUSH PRN (05:51)
[2024-08-18] MEDS ORDERED: Glucagon,Human Recombinant 1 MG Vial IM PRN (05:51)
[2024-08-18] MEDS ORDERED: Sodium Chloride 0.9% 250 ML IV SCH (06:00)
[2024-08-18 06:07] LABS: HEMOGLOBIN A1C 6.6 %
[2024-08-18] MEDS: Insulin Aspart 100 Units/ML 3 ML Pen SUBCUT STA (07:36)
[2024-08-18] MEDS: Phosphorus #1 250 MG Tab PO SCH ×2 (07:38→20:51)
[2024-08-18] MEDS: Insulin Aspart 100 Units/ML 3 ML Pen SUBCUT SCH (07:41)
[2024-08-18] MEDS: methylPREDNISolone Sodium Succinate 40 MG/1 ML SDV IVPUSH SCH ×2 (08:47→20:46)
[2024-08-18 10:52] LABS: BICARBONATE,ARTERIAL 19 mEq/L (22-26); PCO2 ARTERIAL 38 mmHG (35-45); PO2 ARTERIAL 60 mmHG (80-105)
[2024-08-18] MEDS ORDERED: Furosemide 20 MG Tab PO PRN (11:53)
[2024-08-18] MEDS ORDERED: Non-Formulary Medication 1 Each (Duloxetine 20 MG Cap) PO SCH (12:00)
[2024-08-18] MEDS: Fluticasone Propion/Salmeterol [Advair 250-50 Diskus] INH SCH (14:54)
[2024-08-18] MEDS: Iopamidol 755 MG/ML 500 ML Multipack Bottle IVPUSH STA (18:30)
[2024-08-18] MEDS: Gabapentin 800 MG Tab PO ONE (19:27)
[2024-08-18] MEDS: cloNIDine 0.1 MG Tab PO SCH (20:46)
[2024-08-18] MEDS: Melatonin 3 MG Tab PO PRN (20:46)
[2024-08-18] MEDS: Celecoxib 100 MG Cap PO SCH (22:52)
[2024-08-19 06:17] LABS: BASOPHILS ABSOLUTE AUTO 0.01 K/uL (0.00-0.20); BASOPHILS PERCENT AUTO 0.1 % (0.0-1.0); HEMOGLOBIN 12.9 g/dL (12.0-16.0); IMMATURE GRAN ABSOLUTE AUTO 0.08 K/uL (0.00-0.05); IMMATURE GRAN PERCENT AUTO 0.8 % (0.0-0.4); LYMPHOCYTES ABSOLUTE AUTO 0.63 K/uL (1.00-4.80); LYMPHOCYTES PERCENT AUTO 6.4 % (24.0-44.0); MEAN CORPUSCULAR HEMOGLOBIN 26.9 pg (28.0-32.0); MEAN CORPUSCULAR VOLUME 89.8 fL (83.0-99.0); MEAN PLATELET VOLUME 10.5 fL (9.4-12.3); MONOCYTES ABSOLUTE AUTO 0.39 K/uL (0.00-0.80); NEUTROPHILS ABSOLUTE AUTO 8.72 K/uL (1.80-7.70); NEUTROPHILS PERCENT AUTO 88.7 % (41.0-71.0); PLATELET COUNT,PLT 239 K/uL (150-400); RED BLOOD CELL COUNT 4.79 M/uL (4.10-5.30); WHITE BLOOD CELL COUNT,WBC 9.83 K/uL (3.9-11.3)
[2024-08-19 06:35] LABS: CALCIUM 9.1 mg/dL (8.5-10.1); EST CRCL DRUG DOSING (CG) 78.15 mL/min; MAGNESIUM 2.5 mg/dL (1.8-2.4)
[2024-08-19] MEDS: Pantoprazole 40 MG Tab.CR PO SCH (07:45)
[2024-08-19] MEDS: Gabapentin 800 MG Tab PO SCH ×2 (08:58→19:59)
[2024-08-19] MEDS ORDERED: Ketorolac 30 MG/ML SDV IVPUSH PRN (11:38)
[2024-08-19 12:21] LABS: BICARBONATE,ARTERIAL 22 mEq/L (22-26); PCO2 ARTERIAL 42 mmHG (35-45); PO2 ARTERIAL 57 mmHG (80-105)
[2024-08-19] MEDS: Ketorolac 30 MG/ML SDV IVPUSH PRN (12:27)
[2024-08-20] MEDS: cefTRIAXone 1 GM in Sodium Chloride 0.9% 50 ML IV SCH (11:46)
[2024-08-21 05:07] LABS: BORDETELLA PARAPERT IS1001 Not Detected (Not Detected)
[2024-08-21] MEDS: Pantoprazole 40 MG in Sodium Chloride 0.9% 10 ML IVPUSH SCH (06:43)
[2024-08-21 09:05] LABS: BASOPHILS ABSOLUTE AUTO 0.03 K/uL (0.00-0.20); BASOPHILS PERCENT AUTO 0.3 % (0.0-1.0); HEMATOCRIT 41.2 % (37.0-47.0); HEMOGLOBIN 12.7 g/dL (12.0-16.0); IMMATURE GRAN ABSOLUTE AUTO 0.18 K/uL (0.00-0.05); IMMATURE GRAN PERCENT AUTO 1.7 % (0.0-0.4); LYMPHOCYTES ABSOLUTE AUTO 1.39 K/uL (1.00-4.80); LYMPHOCYTES PERCENT AUTO 13.3 % (24.0-44.0); MEAN CORPUSCULAR HEMOGLOBIN 27.5 pg (28.0-32.0); MEAN CORPUSCULAR HGB CONC 30.8 g/dL (32.0-36.0); MEAN CORPUSCULAR VOLUME 89.4 fL (83.0-99.0); MEAN PLATELET VOLUME 10.2 fL (9.4-12.3); MONOCYTES ABSOLUTE AUTO 0.53 K/uL (0.00-0.80); MONOCYTES PERCENT AUTO 5.1 % (0.0-8.0); NEUTROPHILS ABSOLUTE AUTO 8.29 K/uL (1.80-7.70); NEUTROPHILS PERCENT AUTO 79.6 % (41.0-71.0); PLATELET COUNT,PLT 247 K/uL (150-400); RED BLOOD CELL COUNT 4.61 M/uL (4.10-5.30); WHITE BLOOD CELL COUNT,WBC 10.42 K/uL (3.9-11.3)
[2024-08-21] MEDS: Insulin Glargine,Hum.Rec.Anlog 100 UNIT/ML 3 ML Pen SUBCUT ONE (09:24)
[2024-08-21 09:42] LABS: CALCIUM 9.1 mg/dL (8.5-10.1); CARBON DIOXIDE,CO2 28.5 mmol/L (21.0-32.0); CREATININE 0.9 mg/dL (0.6-1.0); EST CRCL DRUG DOSING (CG) 86.84 mL/min; MAGNESIUM 2.2 mg/dL (1.8-2.4); PHOSPHORUS 2.9 mg/dL (2.6-4.7); POTASSIUM,K 4.7 mmol/L (3.5-5.1)
[2024-08-21] MEDS: Codeine/guaiFENesin 10-100 MG/5 ML Syrup 5 ML Cup PO PRN (14:26)
[2024-08-21] MEDS: Insulin Glargine,Hum.Rec.Anlog 100 UNIT/ML 3 ML Pen SUBCUT SCH (20:16)
[2024-08-21] MEDS: Enoxaparin 40 MG/0.4 ML Syringe SUBCUT SCH (20:19)
[2024-08-21] MEDS: Melatonin 3 MG Tab PO PRN (20:29)
[2024-08-22 06:17] LABS: BASOPHILS ABSOLUTE AUTO 0.06 K/uL (0.00-0.20); BASOPHILS PERCENT AUTO 0.5 % (0.0-1.0); EOSINOPHILS ABSOLUTE AUTO 0.09 K/uL (0.00-0.45); EOSINOPHILS PERCENT AUTO 0.8 % (0.0-6.0); HEMATOCRIT 44.6 % (37.0-47.0); HEMOGLOBIN 13.7 g/dL (12.0-16.0); IMMATURE GRAN ABSOLUTE AUTO 0.32 K/uL (0.00-0.05); IMMATURE GRAN PERCENT AUTO 2.7 % (0.0-0.4); LYMPHOCYTES ABSOLUTE AUTO 3.31 K/uL (1.00-4.80); LYMPHOCYTES PERCENT AUTO 28.4 % (24.0-44.0); MEAN CORPUSCULAR HEMOGLOBIN 27.8 pg (28.0-32.0); MEAN CORPUSCULAR HGB CONC 30.7 g/dL (32.0-36.0); MEAN CORPUSCULAR VOLUME 90.5 fL (83.0-99.0); MONOCYTES ABSOLUTE AUTO 0.72 K/uL (0.00-0.80); MONOCYTES PERCENT AUTO 6.2 % (0.0-8.0); NEUTROPHILS ABSOLUTE AUTO 7.17 K/uL (1.80-7.70); NEUTROPHILS PERCENT AUTO 61.4 % (41.0-71.0); PLATELET COUNT,PLT 262 K/uL (150-400); RED BLOOD CELL COUNT 4.93 M/uL (4.10-5.30); WHITE BLOOD CELL COUNT,WBC 11.67 K/uL (3.9-11.3)
[2024-08-22] MEDS: Pantoprazole 40 MG Tab.CR PO SCH (06:17)
[2024-08-22 06:47] LABS: CALCIUM 9.2 mg/dL (8.5-10.1); CARBON DIOXIDE,CO2 30.1 mmol/L (21.0-32.0); CREATININE 0.9 mg/dL (0.6-1.0); EST CRCL DRUG DOSING (CG) 86.84 mL/min; MAGNESIUM 2.2 mg/dL (1.8-2.4); POTASSIUM,K 4.1 mmol/L (3.5-5.1)
[2024-08-22] MEDS: predniSONE 20 MG Tab PO SCH (08:00)
[2024-08-22] MEDS: Insulin Glargine,Hum.Rec.Anlog 100 UNIT/ML 3 ML Pen SUBCUT ONE (08:59)
[2024-08-22 11:53] VITALS: BP 126/71; PULSE 88
== END 2024-08-22 14:10 | disposition home or self-care (01) | DRG 189 ==
LOC: MW.ED 17:02 → MW.MS 21:36 → OBSVTOIN 08-18 08:48 → MW.MS 08-18 19:04
PROVIDERS: ADMIT Family Medicine; ATTEND Family Medicine
PROC: 4A133R1 Monitoring of Arterial Saturation, Peripheral, Percutaneous Approach (ICD-10-PCS; principal; 2024-08-18)
DX: J96.01 Acute respiratory failure with hypoxia (principal); J45.51 Severe persistent asthma with (acute) exacerbation; E11.9 Type 2 diabetes mellitus without complications; Z68.42 Body mass index [BMI] 45.0-49.9, adult; E78.00 Pure hypercholesterolemia, unspecified; Z79.2 Long term (current) use of antibiotics; K21.9 Gastro-esophageal reflux disease without esophagitis; F41.9 Anxiety disorder, unspecified; Z91.048 Other nonmedicinal substance allergy status; Z75.8 Other problems related to medical facilities and other health care; F32.A Depression, unspecified; E11.65 Type 2 diabetes mellitus with hyperglycemia; R79.89 Other specified abnormal findings of blood chemistry; G71.11 Myotonic muscular dystrophy; E66.01 Morbid (severe) obesity due to excess calories; L65.9 Nonscarring hair loss, unspecified; G89.29 Other chronic pain; B34.2 Coronavirus infection, unspecified; Z79.51 Long term (current) use of inhaled steroids; Z79.84 Long term (current) use of oral hypoglycemic drugs; Z79.899 Other long term (current) drug therapy; Z98.49 Cataract extraction status, unspecified eye; Z90.49 Acquired absence of other specified parts of digestive tract; Z98.51 Tubal ligation status
CPT/HCPCS: 36415 ×2; 71045; 80048; 80053; 81003; 81025; 82947; 83036; 83605 ×2; 83735; 83880; 84100; 85025 ×2; 87040 ×2; 87428; 94640; 96372; 99285; A9270; J1815; J2470; J2919 ×2; J3475 ×2; J7030 ×5; 36600; 71275; 71275-26; 82803; 87486; 87581; 87633; 94667; 94668; 96361; 96365; 96366; 96375; 99222; 99232; 99238; 99284; G0378; J0696; J1650; J1885; J3490; J7620-GY; Q9967

== ENCOUNTER 2024-09-16 11:44 | Emergency (ER) | payer MEDICAID ==
[2024-09-16 13:00] LABS: BASOPHILS ABSOLUTE AUTO 0.04 K/uL (0.00-0.20); BASOPHILS PERCENT AUTO 0.5 % (0.0-1.0); EOSINOPHILS ABSOLUTE AUTO 0.32 K/uL (0.00-0.45); EOSINOPHILS PERCENT AUTO 4.3 % (0.0-6.0); HEMATOCRIT 41.9 % (37.0-47.0); HEMOGLOBIN 12.8 g/dL (12.0-16.0); IMMATURE GRAN ABSOLUTE AUTO 0.03 K/uL (0.00-0.05); IMMATURE GRAN PERCENT AUTO 0.4 % (0.0-0.4); LYMPHOCYTES ABSOLUTE AUTO 2.49 K/uL (1.00-4.80); LYMPHOCYTES PERCENT AUTO 33.5 % (24.0-44.0); MEAN CORPUSCULAR HEMOGLOBIN 27.5 pg (28.0-32.0); MEAN CORPUSCULAR HGB CONC 30.5 g/dL (32.0-36.0); MEAN CORPUSCULAR VOLUME 89.9 fL (83.0-99.0); MEAN PLATELET VOLUME 9.8 fL (9.4-12.3); MONOCYTES ABSOLUTE AUTO 0.46 K/uL (0.00-0.80); MONOCYTES PERCENT AUTO 6.2 % (0.0-8.0); NEUTROPHILS PERCENT AUTO 55.1 % (41.0-71.0); PLATELET COUNT,PLT 218 K/uL (150-400); RED BLOOD CELL COUNT 4.66 M/uL (4.10-5.30); WHITE BLOOD CELL COUNT,WBC 7.44 K/uL (3.9-11.3)
[2024-09-16] MEDS: Sodium Chloride 0.9% 1,000 ML IV ONE (13:00)
[2024-09-16] MEDS: Morphine 4 MG/ML Syringe IVPUSH ONE (13:00)
[2024-09-16] MEDS: Ondansetron 4 MG/2 ML SDV IVPUSH ONE (13:00)
[2024-09-16 13:22] LABS: A/G RATIO 0.8 (0.9-1.6); ALBUMIN 2.8 g/dL (3.4-5.0); BILIRUBIN TOTAL 0.2 mg/dL (0.2-1.0); CALCIUM 9.6 mg/dL (8.5-10.1); CARBON DIOXIDE,CO2 31.3 mmol/L (21.0-32.0); CREATININE 0.9 mg/dL (0.6-1.0); EST CRCL DRUG DOSING (CG) 86.84 mL/min; LACTIC ACID 1.8 mmol/L (0.4-2.0); MAGNESIUM 1.8 mg/dL (1.8-2.4); PROTEIN TOTAL,TP 6.5 g/dL (6.4-8.2)
[2024-09-16 14:32] VITALS: BP 106/67; PULSE 91
== END 2024-09-16 14:32 | disposition home or self-care (01) ==
LOC: MW.ED 11:44
DX: K08.89 Other specified disorders of teeth and supporting structures (principal); J45.909 Unspecified asthma, uncomplicated; E78.00 Pure hypercholesterolemia, unspecified; F17.210 Nicotine dependence, cigarettes, uncomplicated; Z91.048 Other nonmedicinal substance allergy status; Z75.8 Other problems related to medical facilities and other health care; Z79.899 Other long term (current) drug therapy; Z79.84 Long term (current) use of oral hypoglycemic drugs; Z79.51 Long term (current) use of inhaled steroids
CPT/HCPCS: 36415; 80053; 83605; 83690; 83735; 85025; 96361; 96374; 96375; 99283; J2270; J2405; J7030

== ENCOUNTER 2024-11-01 19:37 | Emergency (ER) | payer MEDICAID ==
[2024-11-01] MEDS: Ketorolac 30 MG/ML SDV IM ONE (22:48)
[2024-11-01 23:06] VITALS: BP 126/88; PULSE 85
== END 2024-11-01 23:06 | disposition home or self-care (01) ==
LOC: MW.ED 19:37
DX: S76.912A Strain of unspecified muscles, fascia and tendons at thigh level, left thigh, initial encounter (principal); E11.9 Type 2 diabetes mellitus without complications; K21.9 Gastro-esophageal reflux disease without esophagitis; F17.210 Nicotine dependence, cigarettes, uncomplicated; J45.909 Unspecified asthma, uncomplicated; Z91.048 Other nonmedicinal substance allergy status; Z79.899 Other long term (current) drug therapy; Z79.51 Long term (current) use of inhaled steroids; Z79.84 Long term (current) use of oral hypoglycemic drugs; Z90.49 Acquired absence of other specified parts of digestive tract
CPT/HCPCS: 73552; 93970; 96372; 99284; J1885; 99282

== ENCOUNTER 2025-04-16 23:30 | Emergency (ER) | payer MEDICAID ==
[2025-04-17] MEDS: Ketorolac 30 MG/ML SDV IM ONE (00:31)
[2025-04-17 02:25] VITALS: BP 119/70; PULSE 90
== END 2025-04-17 02:25 | disposition home or self-care (01) ==
LOC: MW.ED 23:30
DX: M84.452A Pathological fracture, left femur, initial encounter for fracture (principal); J45.909 Unspecified asthma, uncomplicated; K21.9 Gastro-esophageal reflux disease without esophagitis; E11.9 Type 2 diabetes mellitus without complications; Z87.39 Personal history of other diseases of the musculoskeletal system and connective tissue; Z90.49 Acquired absence of other specified parts of digestive tract; Z91.048 Other nonmedicinal substance allergy status; Z79.899 Other long term (current) drug therapy
CPT/HCPCS: 72192; 73562; 96372; 99284; A9270; J1885; J2270; 99283